=== PATIENT | male | born 1935 | race African-American/Black ===

== ENCOUNTER 2016-09-30 09:16 | Emergency (ER) | payer MEDICARE, OTHER ==
--- NOTE | 2016-09-30 11:10 | ER Document Report ---
ED General - General Chief Complaint: High Blood Pressure Stated Complaint: POSSIBLE HIGH BLOOD PRESSURE Notes: This is a 81-year-old male with history of hypertension, coronary artery disease , PTSD who states that he's felt dizzy for 3 days. He's noted his blood pressure to be very elevated over the past 3 days as well, sometimes as high as 180 systolic. He does note that he took a new medication for his PTSD just prior to the onset of these symptoms. He only took the medication one time because he was not sure if the dizziness was a side effect. He states he is still feeling dizzy even days later. He feels as if he is staggering when he walks. He is concerned that he might be having a stroke. No chest pain or shortness of breath. His pulse is very low at 44 but he states that is normal for him due to his beta blockers. He denies any focal numbness, weakness or tingling although he does state occasionally he experiences tingling in bilateral feet which has been present for a long time. TRAVEL OUTSIDE OF THE [place] IN LAST 30 DAYS: No - Related Data Allergies/Adverse Reactions: Sulfa (Sulfonamide Antibiotics) Allergy (Mild, Verified 09/30/16 09:38) Hives Past Medical History - General Information source: Patient - Social History Smoking Status: Former Smoker Frequency of alcohol use: None Drug Abuse: None Lives with: Spouse/Significant other Family History: CAD Patient has suicidal ideation: No Patient has homicidal ideation: No - Past Medical History Cardiac Medical History: Reports: Hx Atrial Fibrillation, Hx Coronary Artery Disease - stents x 2, Hx Hypercholesterolemia, Hx Hypertension Denies: Hx Heart Attack Pulmonary Medical History: Denies: Hx Asthma, Hx Bronchitis, Hx COPD, Hx Pneumonia, Hx Tuberculosis Neurological Medical History: Denies: Hx Cerebrovascular Accident, Hx Seizures Renal/ Medical History: Reports: Hx Benign Prostatic Hyperplasia GI Medical History: Reports: Hx Gastroesophageal Reflux Disease Musculoskeltal Medical History: Reports Hx Arthritis - back Psychiatric Medical History: Reports: Hx Post Traumatic Stress Disorder Past Surgical History: Reports: Hx Cardiac Catheterization - 2 stents, Hx Coronary Stent - x 2, Hx Herniorrhaphy - BILATERAL INGUINAL, Hx Inguinal Hernia. Denies: Hx Pacemaker - Immunizations Hx Diphtheria, Pertussis, Tetanus Vaccination: No Hx Pneumococcal Vaccination: 07/29/13 Review of Systems - Review of Systems Constitutional: denies: Fever Cardiovascular: Dizziness. denies: Chest pain, Syncope Respiratory: denies: Cough, Short of breath Gastrointestinal: Nausea. denies: Abdominal pain, Vomiting Genitourinary: denies: Frequency Musculoskeletal: denies: Leg swelling Skin: denies: Rash Hematologic/Lymphatic: denies: Enlarged lymph nodes Neurological/Psychological: denies: Numbness, Tingling Physical Exam - Vital signs Vitals: Temp Pulse Resp BP Pulse Ox 97.9 F 49 L 16 155/65 H 99 09/30/16 09:43 09/30/16 09:43 09/30/16 09:43 09/30/16 09:43 09/30/16 09:43 - Notes Notes: GENERAL: Well-appearing, well-nourished and in no acute distress. HEAD: Atraumatic, normocephalic. EYES: Pupils equal round and reactive to light, extraocular movements intact, sclera anicteric, conjunctiva are normal. ENT: nares patent, oropharynx clear without exudates. Moist mucous membranes. NECK: Normal range of motion, supple without lymphadenopathy or JVD. LUNGS: Breath sounds clear to auscultation bilaterally and equal. No wheezes rales or rhonchi. HEART: Regular bradycardia, no murmur ,rubs or gallops. ABDOMEN: Soft, nontender, normoactive bowel sounds. No guarding, no rebound. No masses appreciated. EXTREMITIES: Normal range of motion, no pitting or edema. No clubbing or cyanosis. NEUROLOGICAL: Cranial nerves II through XII grossly intact. Normal speech. Strength 5 out of 5 times all 4 extremities PSYCH: Normal mood, normal affect. SKIN: Warm, Dry, normal turgor, no rashes or lesions noted. Course - Vital Signs Vital signs: Temp Pulse Resp BP Pulse Ox 97.5 F 49 L 18 171/76 H 100 09/30/16 14:56 09/30/16 09:43 09/30/16 16:02 09/30/16 16:02 09/30/16 16:02 - Laboratory Result Diagrams: 09/30/16 10:30 09/30/16 10:30 Laboratory results interpreted by me: 09/30/16 09/30/16 10:30 10:30 WBC 3.9 L RBC 3.89 L Hgb 12.5 L Hct 37.5 L Carbon Dioxide 32 H Glucose 114 H - Diagnostic Test Radiology reviewed: Reports reviewed - MRI normal Discharge - Discharge Clinical Impression: Dizziness HTN (hypertension) Qualifiers: Hypertension type: essential hypertension Qualified Code(s): I10 - Essential ( primary) hypertension Condition: Good Disposition: HOME, SELF-CARE Additional Instructions: follow up with your doctor regarding your elevated blood pressure readings. REturn to ER if you are feeling worse.
[2016-09-30 11:33] LABS: PROTHROMBIN TIME 13.2 SEC (11.4-15.4)
[2016-09-30 11:34] LABS: PARTIAL THROMBOPLASTIN TIME 32.6 SEC (23.5-35.8)
[2016-09-30 11:36] LABS: ALANINE AMINOTRANSFERASE 46 U/L (21-72); ALKALINE PHOSPHATASE 70 U/L (38-126); ANION GAP 10 (5-19); ASPARTATE AMINO TRANSFERASE 34 U/L (17-59); BILIRUBIN,TOTAL 0.7 mg/dL (0.2-1.3); BLOOD UREA NITROGEN 16 mg/dL (7-20); CARBON DIOXIDE 32 mmol/L (22-30); CHLORIDE 101 mmol/L (98-107); CREATININE RESULT 0.98 mg/dL (0.52-1.25); GLUCOSE 114 mg/dL (75-110); POTASSIUM 4.6 mmol/L (3.6-5.0); SODIUM 142.7 mmol/L (137-145); TOTAL PROTEIN 7.5 g/dL (6.3-8.2)
[2016-09-30 11:41] LABS: ABSOLUTE EOSINOPHILS # (AUTO) 0.2 10^3/uL (0.0-0.6); ABSOLUTE MONOCYTES (AUTO) 0.5 10^3/uL (0.1-1.4); ABSOLUTE NEUT (AUTO) 2.2 10^3/uL (1.7-8.2); EOSINOPHILS % (AUTO) 3.8 % (0-6); HEMATOCRIT 37.5 % (37.9-51.0); HEMOGLOBIN 12.5 g/dL (13.5-17.0); LYMPHOCYTES % (AUTO) 26.5 % (13-45); MEAN CORPUSCULAR HEMOGLOBIN 32.2 pg (27.0-33.4); MEAN CORPUSCULAR HGB CONC 33.3 g/dL (32.0-36.0); MEAN CORPUSCULAR VOLUME 97 fl (80-97); MONOCYTES % (AUTO) 12.4 % (3-13); RED BLOOD COUNT 3.89 10^6/uL (4.35-5.55); RED CELL DISTRIBUTION WIDTH 13.5 % (11.5-14.0); SEGMENTED NEUTROPHILS % (AUTO) 56.3 % (42-78); WHITE BLOOD COUNT 3.9 10^3/uL (4.0-10.5)
[2016-09-30 11:48] LABS: CREATINE KINASE MB 0.24 ng/mL (<4.55); TROPONIN I < 0.012 ng/mL
[2016-09-30 12:45] LABS: APPEARANCE,URINE CLEAR; BILIRUBIN,URINE NEGATIVE (NEGATIVE); GLUCOSE, URINE NEGATIVE (NEGATIVE); KETONES,URINE NEGATIVE (NEGATIVE); LEUKOCYTE ESTERASE,URINE NEGATIVE (NEGATIVE); NITRITE,URINE NEGATIVE (NEGATIVE); PROTEIN,URINE NEGATIVE (NEGATIVE); URINE SPECIFIC GRAVITY 1.023; UROBILINOGEN,URINE NEGATIVE mg/dL (<2.0)
--- NOTE | 2016-09-30 13:16 | EKG REPORT ---
SEVERITY:- ABNORMAL ECG - SINUS BRADYCARDIA ABNORMAL T, CONSIDER ISCHEMIA, LATERAL LEADS : Confirmed by: Kareem Watson 30-Sep-2016 13:15:43
[2016-09-30] MEDS ORDERED: HYDRALAZINE HCL INJ/PF 20 MG/1 ML SDV IV ONE (15:26)
[2016-09-30 16:52] VITALS: BP 157/66
== END 2016-09-30 16:50 | disposition home or self-care (01) ==
LOC: ER 09:16
DX: I10 Essential (primary) hypertension (principal); I25.10 Atherosclerotic heart disease of native coronary artery without angina pectoris; I48.91 Unspecified atrial fibrillation; R42 Dizziness and giddiness; R00.1 Bradycardia, unspecified; F43.10 Post-traumatic stress disorder, unspecified; R11.0 Nausea; R20.2 Paresthesia of skin; Z79.899 Other long term (current) drug therapy; Z88.2 Allergy status to sulfonamides; Z87.891 Personal history of nicotine dependence; Z82.49 Family history of ischemic heart disease and other diseases of the circulatory system; Z98.61 Coronary angioplasty status
CPT/HCPCS: 93005; 99284; 96374; 36415; 82553; 85025; 85610; 85730; 80053; 81001; 84484; 70551; 71020; 70450; 93010; J0360

== ENCOUNTER 2016-12-30 13:06 | Emergency (ER) | payer MEDICARE, OTHER ==
--- NOTE | 2016-12-30 13:21 | ER Document Report ---
ED Medical Screen (RME) - General Mode of Arrival: Wheelchair Information source: Patient TRAVEL OUTSIDE OF THE [place] IN LAST 30 DAYS: No - HPI Patient complains to provider of: Dizziness Onset: This morning - 0300 Associated Symptoms: Other - see notes above <CHRIS NELSON - Last Filed: 12/30/16 15:09> <BRIAJEAN CLAUDE MALINAD - Last Filed: 12/30/16 15:26> - General Chief Complaint: Dizziness Stated Complaint: DIZZINESS Notes: 81 year male with history of arthritis (back and neck) presents to the ED complaining of dizziness that started at 0300 this morning. Patient reports that he stood up to use the restroom and almost fell. Patient explains that he is off balance and that the room is spinning. Patient is dizzy while sitting, but it is exacerbated when standing. Patient is also complaining of a sharp pain from the right shoulder that radiates to the upper back and left shoulder. Patient states he takes baby aspirin daily. (CHRIS NELSON) - Related Data Allergies/Adverse Reactions: Sulfa (Sulfonamide Antibiotics) Allergy (Mild, Verified 12/30/16 13:16) Hives Past Medical History - General Information source: Patient - Past Medical History Cardiac Medical History: Reports: Hx Atrial Fibrillation, Hx Coronary Artery Disease - stents x 2, Hx Hypercholesterolemia, Hx Hypertension Denies: Hx Heart Attack Renal/ Medical History: Reports: Hx Benign Prostatic Hyperplasia. Denies: Hx Peritoneal Dialysis GI Medical History: Reports: Hx Gastroesophageal Reflux Disease Musculoskeltal Medical History: Reports Hx Arthritis - back Psychiatric Medical History: Reports: Hx Post Traumatic Stress Disorder Past Surgical History: Reports: Hx Cardiac Catheterization - 2 stents, Hx Coronary Stent - x 2, Hx Herniorrhaphy - BILATERAL INGUINAL, Hx Inguinal Hernia. Denies: Hx Pacemaker - Immunizations Hx Diphtheria, Pertussis, Tetanus Vaccination: No <CHRIS NELSON - Last Filed: 12/30/16 15:09> Review of Systems - Review of Systems Constitutional: No symptoms reported EENT: No symptoms reported Cardiovascular: See HPI, Dizziness Respiratory: No symptoms reported Gastrointestinal: No symptoms reported Genitourinary: No symptoms reported Male Genitourinary: No symptoms reported Musculoskeletal: See HPI, Other - right shoulder pain that radiates to upper back and left shoulder Skin: No symptoms reported Hematologic/Lymphatic: No symptoms reported Neurological/Psychological: No symptoms reported -: Yes All other systems reviewed and negative <CHRIS NELSON - Last Filed: 12/30/16 15:09> Physical Exam - General General appearance: Alert In distress: None - Respiratory Respiratory status: No respiratory distress - Extremities General upper extremity: Normal inspection, Normal ROM General lower extremity: Normal inspection, Normal ROM <CHRIS NELSON - Last Filed: 12/30/16 15:09> <JEAN CLAUDE FRASER - Last Filed: 12/30/16 15:26> - Vital signs Vitals: Temp Pulse Resp BP Pulse Ox 98.1 F 60 18 155/66 H 98 12/30/16 13:12 12/30/16 13:12 12/30/16 13:12 12/30/16 13:12 12/30/16 13:12 Course - Laboratory Result Diagrams: 12/30/16 13:30 12/30/16 13:30 <CHRIS NELSON - Last Filed: 12/30/16 15:09> - Laboratory Result Diagrams: 12/30/16 13:30 12/30/16 13:30 <JEAN CLAUDE FRASER - Last Filed: 12/30/16 15:26> - Re-evaluation Re-evalutation: 12/30/16 15:26 I personally performed the services described in the documentation, reviewed and edited the documentation which was dictated to the scribe in my presence, and it accurately records my words and actions. (JEAN CLAUDE FRASER) - Vital Signs Vital signs: Temp Pulse Resp BP Pulse Ox 98.1 F 50 L 19 151/70 H 97 12/30/16 13:12 12/30/16 14:34 12/30/16 14:31 12/30/16 14:34 12/30/16 14:31 - Laboratory Laboratory results interpreted by me: 12/30/16 12/30/16 13:30 13:30 RBC 3.85 L Hgb 12.4 L Hct 36.4 L Carbon Dioxide 31 H Glucose 162 H Scribe Documentation - Scribe Written by Davie:: Davie Reaves, 12/30/2016 1347 acting as scribe for :: Brai <CHRIS NELSON - Last Filed: 12/30/16 15:09>
[2016-12-30 13:42] LABS: ABSOLUTE EOSINOPHILS # (AUTO) 0.1 10^3/uL (0.0-0.6); ABSOLUTE LYMPHOCYTES (AUTO) 1.3 10^3/uL (0.5-4.7); ABSOLUTE MONOCYTES (AUTO) 0.4 10^3/uL (0.1-1.4); ABSOLUTE NEUT (AUTO) 3.5 10^3/uL (1.7-8.2); HEMOGLOBIN 12.4 g/dL (13.5-17.0); MEAN CORPUSCULAR HEMOGLOBIN 32.3 pg (27.0-33.4); MEAN CORPUSCULAR HGB CONC 34.2 g/dL (32.0-36.0); RED BLOOD COUNT 3.85 10^6/uL (4.35-5.55); WHITE BLOOD COUNT 5.3 10^3/uL (4.0-10.5)
[2016-12-30 13:51] LABS: BASOPHILS % (AUTO) 0.7 % (0-2); EOSINOPHILS % (AUTO) 1.7 % (0-6); HEMATOCRIT 36.4 % (37.9-51.0); HGB HCT DIFFERENCE 0.8; LYMPHOCYTES % (AUTO) 23.7 % (13-45); MEAN CORPUSCULAR VOLUME 95 fl (80-97); MONOCYTES % (AUTO) 7.9 % (3-13); RED CELL DISTRIBUTION WIDTH 12.7 % (11.5-14.0)
[2016-12-30 13:54] LABS: ALANINE AMINOTRANSFERASE 25 U/L (21-72); ALBUMIN 4.2 g/dL (3.5-5.0); ALKALINE PHOSPHATASE 71 U/L (38-126); ANION GAP 10 (5-19); ASPARTATE AMINO TRANSFERASE 24 U/L (17-59); BILIRUBIN,TOTAL 0.6 mg/dL (0.2-1.3); BLOOD UREA NITROGEN 15 mg/dL (7-20); CALCIUM 9.6 mg/dL (8.4-10.2); CARBON DIOXIDE 31 mmol/L (22-30); CHLORIDE 104 mmol/L (98-107); CREATINE KINASE 87 U/L (55-170); CREATININE RESULT 0.96 mg/dL (0.52-1.25); GLUCOSE 162 mg/dL (75-110); SODIUM 144.5 mmol/L (137-145); TOTAL PROTEIN 7.5 g/dL (6.3-8.2)
[2016-12-30] MEDS ORDERED: NORMAL SALINE 1000 ML 1,000 ML IV ONE (15:29)
--- NOTE | 2016-12-30 16:57 | ER Document Report ---
ED General - General Chief Complaint: Dizziness Stated Complaint: DIZZINESS Mode of Arrival: Wheelchair Information source: Patient Notes: 81-year-old male presents with complaints of dizziness only when he stands. Patient notes otherwise he has no complaints at rest he has no complaints. Patient notes when he walks he has no complaints. Symptoms only occur upon standing. Patient notes the room spins. Denies any chest pain shortness breath difficult to breathing diaphoresis or any other concerns. Patient does note pain in his back that has been ongoing for a few days TRAVEL OUTSIDE OF THE [place] IN LAST 30 DAYS: No - HPI Onset: Just prior to arrival Onset/Duration: Sudden Quality of pain: Sharp Severity: Mild Pain Level: 1 Associated symptoms: Body/muscle aches, Weakness Exacerbated by: Standing Relieved by: Denies Similar symptoms previously: No Recently seen / treated by doctor: No - Related Data Allergies/Adverse Reactions: Sulfa (Sulfonamide Antibiotics) Allergy (Mild, Verified 12/30/16 13:16) Hives Past Medical History - General Information source: Patient - Social History Smoking Status: Never Smoker Cigarette use (# per day): No Chew tobacco use (# tins/day): No Smoking Education Provided: No Family History: CAD Patient has suicidal ideation: No Patient has homicidal ideation: No - Past Medical History Cardiac Medical History: Reports: Hx Atrial Fibrillation, Hx Coronary Artery Disease - stents x 2, Hx Hypercholesterolemia, Hx Hypertension Denies: Hx Heart Attack Pulmonary Medical History: Denies: Hx Asthma, Hx Bronchitis, Hx COPD, Hx Pneumonia, Hx Tuberculosis Neurological Medical History: Denies: Hx Cerebrovascular Accident, Hx Seizures Renal/ Medical History: Reports: Hx Benign Prostatic Hyperplasia. Denies: Hx Peritoneal Dialysis GI Medical History: Reports: Hx Gastroesophageal Reflux Disease Musculoskeltal Medical History: Reports Hx Arthritis - back Psychiatric Medical History: Reports: Hx Post Traumatic Stress Disorder Past Surgical History: Reports: Hx Cardiac Catheterization - 2 stents, Hx Coronary Stent - x 2, Hx Herniorrhaphy - BILATERAL INGUINAL, Hx Inguinal Hernia. Denies: Hx Pacemaker - Immunizations Hx Diphtheria, Pertussis, Tetanus Vaccination: No Hx Pneumococcal Vaccination: 07/29/13 Review of Systems - Review of Systems Notes: REVIEW OF SYSTEMS: CONSTITUTIONAL : Denies fever, chills, or sweats. Denies recent illness. EENT: Denies eye, ear, throat, or mouth pain or symptoms. Denies nasal or sinus congestion or discharge. Denies throat, tongue, or mouth swelling or difficulty swallowing. CARDIOVASCULAR: Denies chest pain. Denies palpitations or racing or irregular heart beat. Denies ankle edema. RESPIRATORY: Denies cough, cold, or chest congestion. Denies shortness of breath, difficulty breathing, or wheezing. GASTROINTESTINAL: Denies abdominal pain or distention. Denies nausea, vomiting , or diarrhea. Denies blood in vomitus, stools, or per rectum. Denies black, tarry stools. Denies constipation. GENITOURINARY: Denies difficulty urinating, painful urination, burning, frequency, blood in urine, or discharge. MUSCULOSKELETAL: Admits to back pain SKIN: Denies rash, lesions or sores. HEMATOLOGIC : Denies easy bruising or bleeding. LYMPHATIC: Denies swollen, enlarged glands. NEUROLOGICAL: Admits to dizziness PSYCHIATRIC: Denies anxiety or stress. Denies depression, suicidal ideation, or homicidal ideation. ALL OTHER SYSTEMS REVIEWED AND NEGATIVE. Dictation was performed using [employer] voice recognition software PHYSICAL EXAMINATION: GENERAL: Well-appearing, well-nourished and in no acute distress. HEAD: Atraumatic, normocephalic. EYES: Pupils equal round and reactive to light, extraocular movements intact, sclera anicteric, conjunctiva are normal. ENT: Nares patent, oropharynx clear without exudates. Moist mucous membranes. NECK: Normal range of motion, supple without lymphadenopathy LUNGS: Breath sounds clear to auscultation bilaterally and equal. No wheezes rales or rhonchi. HEART: Regular rate and rhythm without murmurs ABDOMEN: Soft, nontender, nondistended abdomen. No guarding, no rebound. No masses appreciated. Musculoskeletal: Normal range of motion, no pitting or edema. No cyanosis. NEUROLOGICAL: Cranial nerves grossly intact. Normal speech, normal gait. Normal sensory, motor exams PSYCH: Normal mood, normal affect. SKIN: Warm, Dry, normal turgor, no rashes or lesions noted. Physical Exam - Vital signs Vitals: Temp Pulse Resp BP Pulse Ox 98.1 F 60 18 155/66 H 98 12/30/16 13:12 12/30/16 13:12 12/30/16 13:12 12/30/16 13:12 12/30/16 13:12 Course - Re-evaluation Re-evalutation: 12/30/16 19:50 Patient notes he has chronic low heart rate secondary to atenolol use. Denies any dizziness at rest. Denies any fevers or chills. Denies any chest pain. He was emergently sent for CT of his chest given the back pain. In this noted no acute abnormality. Therefore I believe since the patient has the dizziness only when he stands is secondary to orthostatics. Patient is stable for discharge, I did provide him my business card and requests a return immediately if there is any other concerns. Both he and are very happy with this plan 12/30/16 19:52 Patient's orthostatics note no significant abnormality in the emergency department, patient states he feels better and wishes to go home After performing a Medical Screening Examination, I estimate there is LOW risk for INTRACRANIAL HEMORRHAGE, ISCHEMIC CVA, MALIGNANT DYSRHYTHMIA, ACUTE CORONARY SYNDROME, MENINGITIS, PULMONARY EMBOLISM, or SEPSIS thus I consider the discharge disposition reasonable. The patient and I have discussed the diagnosis and risks, and we agree with discharging home with close follow-up with the understanding that symptoms and presentations can change. We also discussed returning to the Emergency Department immediately if new or worsening symptoms occur. We have discussed the symptoms which are most concerning (e.g., changing or worsening pain, weakness, vomiting, fever) that necessitate immediate return. - Vital Signs Vital signs: Temp Pulse Resp BP Pulse Ox 97.9 F 46 L 16 171/61 H 100 12/30/16 17:56 12/30/16 17:56 12/30/16 17:56 12/30/16 17:56 12/30/16 17:56 - Laboratory Result Diagrams: 12/30/16 13:30 12/30/16 13:30 Laboratory results interpreted by me: 12/30/16 12/30/16 13:30 13:30 RBC 3.85 L Hgb 12.4 L Hct 36.4 L Carbon Dioxide 31 H Glucose 162 H - Diagnostic Test Radiology reviewed: Image reviewed, Reports reviewed - EKG Interpretation by Ne EKG shows normal: Sinus rhythm, [place], Intervals, QRS Complexes Discharge - Discharge Clinical Impression: Orthostatic hypotension BPV (benign positional vertigo) Qualifiers: Laterality: unspecified laterality Qualified Code(s): H81.10 - Benign paroxysmal vertigo, unspecified ear Condition: Stable Disposition: HOME, SELF-CARE Instructions: Dizziness ([facility]) Referrals: NEIL THOMAS MD [Primary Care Provider] - Follow up tomorrow
[2016-12-30 17:57] VITALS: BP 171/61
--- NOTE | 2017-01-01 15:42 | EKG REPORT ---
SEVERITY:- ABNORMAL ECG - SINUS BRADYCARDIA NONSPECIFIC T ABNORMALITIES, ANT-LAT LEADS : Confirmed by: Kaya Garcia MD 01-Jan-2017 15:41:55
== END 2016-12-30 17:59 | disposition home or self-care (01) ==
LOC: ER 13:06
DX: H81.10 Benign paroxysmal vertigo, unspecified ear (principal); R42 Dizziness and giddiness; I95.1 Orthostatic hypotension
CPT/HCPCS: 36415; 71010; 71275; 74174; 80053; 82550; 82553; 84484; 85025; 93005; 93010; 99284

== ENCOUNTER 2017-01-19 11:56 | Observation (INO) | payer MEDICARE, OTHER ==
[2017-01-19] MEDS ORDERED: ASPIRIN 81 MG TABLET, CHEWABLE PO ONE (13:06)
--- NOTE | 2017-01-19 13:12 | ER Document Report ---
ED Medical Screen (RME) - General Chief Complaint: Chest Pressure Stated Complaint: CHEST PAIN/NAUSEA Mode of Arrival: Wheelchair Information source: Patient, [facility] Records Notes: 81-year-old male history of 2 previous cardiac stents presents with complaints of chest pressure sensation. Patient notes that he start having this pressure sensation since , initially was a dull achy sensation that would worsen intermittently and now seems to be more constant today. Patient denies any fevers or chills admits to shortness of breath associated with it. Patient took his nitroglycerin from 7 years ago which had minimal improvement. Patient was seen here approximately 20 days ago with dizziness without any chest pain at that time first set of cardiac enzymes were negative. EKG at that time notes no acute abnormality from today I have greeted and performed a rapid initial assessment of this patient. A comprehensive ED assessment and evaluation of the patient, analysis of test results and completion of the medical decision making process will be conducted by additional ED providers. PHYSICAL EXAMINATION: GENERAL: Well-appearing, well-nourished and in no acute distress. HEAD: Atraumatic, normocephalic. EYES: Pupils equal round and reactive to light, extraocular movements intact, sclera anicteric, conjunctiva are normal. ENT: Nares patent, oropharynx clear without exudates. Moist mucous membranes. NECK: Normal range of motion, supple without lymphadenopathy LUNGS: Breath sounds clear to auscultation bilaterally and equal. No wheezes rales or rhonchi. HEART: Regular rate and rhythm without murmurs ABDOMEN: Soft, nontender, nondistended abdomen. No guarding, no rebound. No masses appreciated. Musculoskeletal: Normal range of motion, no pitting or edema. No cyanosis. NEUROLOGICAL: Cranial nerves grossly intact. Normal speech, normal gait. Normal sensory, motor exams PSYCH: Normal mood, normal affect. SKIN: Warm, Dry, normal turgor, no rashes or lesions noted. TRAVEL OUTSIDE OF THE [place] IN LAST 30 DAYS: No - Related Data Allergies/Adverse Reactions: Sulfa (Sulfonamide Antibiotics) Allergy (Mild, Verified 12/30/16 13:16) Hives Past Medical History - Past Medical History Cardiac Medical History: Reports: Hx Atrial Fibrillation, Hx Coronary Artery Disease - stents x 2, Hx Hypercholesterolemia, Hx Hypertension Denies: Hx Heart Attack Pulmonary Medical History: Denies: Hx Asthma, Hx Bronchitis, Hx COPD, Hx Pneumonia, Hx Tuberculosis Neurological Medical History: Denies: Hx Cerebrovascular Accident, Hx Seizures Renal/ Medical History: Reports: Hx Benign Prostatic Hyperplasia. Denies: Hx Peritoneal Dialysis GI Medical History: Reports: Hx Gastroesophageal Reflux Disease Musculoskeltal Medical History: Reports Hx Arthritis - back Psychiatric Medical History: Reports: Hx Post Traumatic Stress Disorder Past Surgical History: Reports: Hx Cardiac Catheterization - 2 stents, Hx Coronary Stent - x 2, Hx Herniorrhaphy - BILATERAL INGUINAL, Hx Inguinal Hernia. Denies: Hx Pacemaker - Immunizations Hx Diphtheria, Pertussis, Tetanus Vaccination: No Physical Exam - Vital signs Vitals: Temp Pulse Resp BP Pulse Ox 97.5 F 61 16 108/55 L 99 01/19/17 12:31 01/19/17 12:31 01/19/17 12:31 01/19/17 12:31 01/19/17 12:31 Course - Re-evaluation Re-evalutation: 01/19/17 13:12 - Vital Signs Vital signs: Temp Pulse Resp BP Pulse Ox 97.5 F 61 16 108/55 L 99 01/19/17 12:31 01/19/17 12:31 01/19/17 12:31 01/19/17 12:31 01/19/17 12:31
[2017-01-19 13:59] LABS: ABSOLUTE EOSINOPHILS # (AUTO) 0.1 10^3/uL (0.0-0.6); ABSOLUTE LYMPHOCYTES (AUTO) 1.3 10^3/uL (0.5-4.7); ABSOLUTE MONOCYTES (AUTO) 0.6 10^3/uL (0.1-1.4); ABSOLUTE NEUT (AUTO) 4.2 10^3/uL (1.7-8.2); BASOPHILS % (AUTO) 0.7 % (0-2); EOSINOPHILS % (AUTO) 1.6 % (0-6); HEMATOCRIT 33.3 % (37.9-51.0); HEMOGLOBIN 11.3 g/dL (13.5-17.0); HGB HCT DIFFERENCE 0.6; LYMPHOCYTES % (AUTO) 21.4 % (13-45); MEAN CORPUSCULAR HEMOGLOBIN 32.3 pg (27.0-33.4); MEAN CORPUSCULAR HGB CONC 33.9 g/dL (32.0-36.0); MEAN CORPUSCULAR VOLUME 95 fl (80-97); MONOCYTES % (AUTO) 9.6 % (3-13); RED CELL DISTRIBUTION WIDTH 13.3 % (11.5-14.0); SEGMENTED NEUTROPHILS % (AUTO) 66.7 % (42-78); WHITE BLOOD COUNT 6.3 10^3/uL (4.0-10.5)
[2017-01-19 14:27] LABS: ALANINE AMINOTRANSFERASE 31 U/L (21-72); ALBUMIN 4.4 g/dL (3.5-5.0); ALKALINE PHOSPHATASE 63 U/L (38-126); ANION GAP 12 (5-19); ASPARTATE AMINO TRANSFERASE 26 U/L (17-59); BILIRUBIN,DIRECT 0.3 mg/dL (0.0-0.4); BILIRUBIN,TOTAL 0.8 mg/dL (0.2-1.3); BLOOD UREA NITROGEN 24 mg/dL (7-20); CALCIUM 9.2 mg/dL (8.4-10.2); CARBON DIOXIDE 30 mmol/L (22-30); CHLORIDE 102 mmol/L (98-107); CREATINE KINASE 90 U/L (55-170); CREATININE RESULT 1.13 mg/dL (0.52-1.25); GLUCOSE 128 mg/dL (75-110); POTASSIUM 4.5 mmol/L (3.6-5.0); SODIUM 144.1 mmol/L (137-145); TOTAL PROTEIN 7.8 g/dL (6.3-8.2)
[2017-01-19 14:38] LABS: CREATINE KINASE MB < 0.22 ng/mL (<4.55); TROPONIN I < 0.012 ng/mL
--- NOTE | 2017-01-19 15:48 | ER Document Report ---
ED Cardiac <JIMENEZ WONG - Last Filed: 01/19/17 16:58> - General Mode of Arrival: Wheelchair Information source: Patient TRAVEL OUTSIDE OF THE [place] IN LAST 30 DAYS: No - HPI Patient complains to provider of: Chest pain, Shortness of breath Quality of pain: Other - see notes above Associated symptoms: Other - see notes above <CHRIS NELSON - Last Filed: 01/19/17 17:03> - General Chief Complaint: Chest Pressure Stated Complaint: CHEST PAIN/NAUSEA Notes: 81 year old male with history of coronary stentsx2, CAD, hypertension, hyperlipidemia, and atrial fibrillation presents to the ED complaining of constant chest pain that started 4 days ago. Patient reports that it feels like there "is a ball under his ribs that is constantly being inflated." Patient reports that the last time he felt a sensation like this was 8 years ago when he was ultimately transferred to [place] for a stent. Patient had a heart catherization performed last year. Patient reports nausea, shortness of breath, and a dry cough, but denies a fever. Patient placed a 10 year old nitro patch yesterday afternoon and reports that the pain is a little better now. (CHRIS NELSON) - Related Data Allergies/Adverse Reactions: Sulfa (Sulfonamide Antibiotics) Allergy (Mild, Verified 12/30/16 13:16) Hives Past Medical History - General Information source: Patient, [facility] Records - Social History Smoking Status: Unknown if Ever Smoked Family History: CAD Patient has suicidal ideation: No Patient has homicidal ideation: No - Past Medical History Cardiac Medical History: Reports: Hx Atrial Fibrillation, Hx Coronary Artery Disease - stents x 2, Hx Hypercholesterolemia, Hx Hypertension Renal/ Medical History: Reports: Hx Benign Prostatic Hyperplasia GI Medical History: Reports: Hx Gastroesophageal Reflux Disease Musculoskeltal Medical History: Reports Hx Arthritis - back Psychiatric Medical History: Reports: Hx Post Traumatic Stress Disorder Past Surgical History: Reports: Hx Cardiac Catheterization - 2 stents, Hx Coronary Stent - x 2, Hx Herniorrhaphy - BILATERAL INGUINAL, Hx Inguinal Hernia - Immunizations Hx Diphtheria, Pertussis, Tetanus Vaccination: No Hx Pneumococcal Vaccination: 07/29/13 <CHRIS NELSON - Last Filed: 01/19/17 17:03> Review of Systems - Review of Systems Constitutional: No symptoms reported. denies: Fever EENT: No symptoms reported Cardiovascular: See HPI, Chest pain Respiratory: See HPI, Cough - dry, Short of breath Gastrointestinal: See HPI, Nausea Genitourinary: No symptoms reported Male Genitourinary: No symptoms reported Musculoskeletal: No symptoms reported Skin: No symptoms reported Hematologic/Lymphatic: No symptoms reported Neurological/Psychological: No symptoms reported -: Yes All other systems reviewed and negative <NELSON,CHRIS - Last Filed: 01/19/17 17:03> Physical Exam <JIMENEZ WONG - Last Filed: 01/19/17 16:58> <CHRIS NELSON - Last Filed: 01/19/17 17:03> - Vital signs Vitals: Temp Pulse Resp BP Pulse Ox 97.5 F 61 16 108/55 L 99 01/19/17 12:31 01/19/17 12:31 01/19/17 12:31 01/19/17 12:31 01/19/17 12:31 - Notes Notes: Physical Exam: GENERAL: VS as per nursing doc. Well-appearing, well-nourished and in no acute distress. HEAD: Atraumatic, normocephalic. EYES: Pupils equal round and reactive to light, extraocular movements intact, sclera anicteric, no conjunctival injection or discharge. ENT: Nares patent, oropharynx clear without exudates. Moist mucous membranes. NECK: Normal range of motion, supple without lymphadenopathy. No JVD. No Carotid Bruits. LUNGS: Breath sounds clear to auscultation bilaterally and equal. Scattered right rales right base HEART: Normal S1S2. Regular rate and rhythm without murmurs. Equal peripheral pulses. ABDOMEN: Soft, non-tender. No pulsatile mass. EXTREMITIES: Normal range of motion. No chest or calf tenderness. Negative Fabian s. No edema. NEUROLOGICAL: Cranial nerves grossly intact. Normal speech. Normal sensory and motor exams. No gross cerebellar abnormalities. PSYCH: Normal mood, normal affect. SKIN: Warm, dry, no cyanosis, no splinter hemorrhages. Cap refill < 2 sec. (JIMENEZ WONG) Course - Laboratory Result Diagrams: 01/19/17 13:30 01/19/17 13:30 - Diagnostic Test Radiology reviewed: Image reviewed - No acute process, Reports reviewed - EKG Interpretation by Hi EKG shows normal: Sinus rhythm Rate: Normal - Heart rate 56, diffuse T-wave inversion in the anterior lateral leads but this is consistent with 12/30/2016. Normal QRS <ISAIASJIMENEZ CEE - Last Filed: 01/19/17 16:58> - Laboratory Result Diagrams: 01/19/17 13:30 01/19/17 13:30 - Consults Dr. Bernardo Time consulted: 16:53 <CHRIS NELSON - Last Filed: 01/19/17 17:03> - Re-evaluation Re-evalutation: 01/19/17 16:[address] Vargas. She accepts the patient for admission. The patient has no chest discomfort at all. As the Nitropatch was 10 years old I was going to change it for some new paste but his symptoms completely went away. (JIMENEZ WONG Junaid) - Vital Signs Vital signs: Temp Pulse Resp BP Pulse Ox 97.5 F 61 16 108/55 L 100 01/19/17 12:31 01/19/17 12:31 01/19/17 12:31 01/19/17 12:31 01/19/17 15:30 - Laboratory Laboratory results interpreted by me: 01/19/17 01/19/17 13:30 13:30 RBC 3.50 L Hgb 11.3 L Hct 33.3 L Plt Count 144 L BUN 24 H Glucose 128 H - Consults Dr. Bernardo Reason for consultation: 01/19/17 16:53 Patient was discussed with Dr. Bernardo and agrees to admit the patient and see him at bedside. (CHRIS NELSON) Discharge - Discharge Unit Admitted: Telemetry <ISAIASJIMENEZ - Last Filed: 01/19/17 16:58> <CHRSI NELSON - Last Filed: 01/19/17 17:03> - Discharge Clinical Impression: Chest pain, Coronary artery disease Condition: Fair Disposition: ADMITTED OBSERVATION Referrals: RICH THOMAS MD [Primary Care Provider] - Follow up as needed Scribe Documentation - Scribe Written by Scribe:: Davie Reaves, 01/19/2017 1604 acting as scribe for :: Isaias <CHRIS NELSON - Last Filed: 01/19/17 17:03>
[2017-01-19] MEDS ORDERED: NITROGLYCERIN 2% OINTMENT 1 GM PACKET TP ONE (16:14)
[2017-01-19] MEDS ORDERED: ONDANSETRON HCL INJ/PF 4 MG/2 ML SDV IV PRN (17:50)
[2017-01-19] MEDS ORDERED: ACETAMINOPHEN 325 MG TABLET PO PRN (17:50)
[2017-01-19] MEDS ORDERED: MORPHINE SULFATE 10 MG/ML INJ IV PRN (18:01)
[2017-01-19] MEDS ORDERED: NITROGLYCERIN 0.4 MG/TAB 25 TAB/BOTTLE SL PRN (18:01)
--- NOTE | 2017-01-19 18:26 | PDOC H&P ---
History of Present Illness Admission Date/PCP: RICH THOMAS MD History of Present Illness: DEAN GARCIA is a 81 year old -Maced[place] male with a past medical history significant for coronary artery disease status post stents 2, hypertension, dyslipidemia, atrial fibrillation, GERD who presents to the service with a week's worth of chest discomfort. The patient states that a few days ago he began having chest discomfort in the middle and left side of his chest. He describes it as an expansion of his chest to the point it feels like something is going to pop. The patient had the Same sensation about 8 years ago when he had stents placed. These stents were placed out in [place]. The patient states that he also had associated shortness of breath and nausea. He describes this pain as a 4 out of 10 at its worse. He states it radiates through to his back. He denies any sweats or palpitations. Try some extra strength Tylenol but this didn't help. Today the pain seemed to be at its worse and he decided to put on an old nitroglycerin patch that he had left over from 10 years ago. This brought his pain down to 1 out of 10. Patient also reports some lightheadedness and dizziness. Of note, the patient does have a history of GERD. However he feels that his GERD is currently under good control. He sleeps in a bed that allows him to keep his head elevated, so it is unknown whether or not he can truly sleep flat. Past Medical History Cardiac Medical History: Reports: Atrial Fibrillation, Coronary Artery Disease - stents x 2, Hyperlipidema, Hypertension Denies: Myocardial Infarction Pulmonary Medical History: Reports: Sleep Apnea Denies: Asthma, Bronchitis, Chronic Obstructive Pulmonary Disease (COPD), Pneumonia, Tuberculosis Neurological Medical History: Denies: Seizures GI Medical History: Reports: Gastroesophageal Reflux Disease Musculoskeltal Medical History: Reports: Arthritis - back Psychiatric Medical History: Reports: Post Traumatic Stress Disorder Hematology: Denies: Anemia Past Surgical History Past Surgical History: Reports: Cardiac Catheterization - 2 stents, Coronary Stent - x 2, Herniorrhaphy - BILATERAL INGUINAL Denies: Pacemaker Social History Information Source: Patient Smoking Status: Former Smoker - Patient quit smoking 40 years ago. Prior to this he smoked for 12 years at 1 pack per day Frequency of Alcohol Use: None - Patient quit alcohol 40 years ago as well Hx Recreational Drug Use: No Drugs: None Hx Prescription Drug Abuse: No Family History Family History: CAD, DM, Hypertension, Malignancy Parental Family History Reviewed: Yes - mom had diabetes Children Family History Reviewed: Yes Sibling(s) Family History Reviewed.: Yes - She had 2 brothers with PTSD from the war. One of prostate cancer. Medication/Allergy Allergies/Adverse Reactions: Sulfa (Sulfonamide Antibiotics) Allergy (Mild, Verified 12/30/16 13:16) Hives Review of Systems Review of Systems: Review of systems is positive for that already listed in the history of present illness in addition to this the patient occasionally has constipation. He is also noticed that he has had decreased abdominal girth without any change in his actual weight. The patient states this is the skinniest he has been since he was a teenager. He also wears glasses and feels that his vision is fading. He has cold intolerance. He denies vomiting fevers, chills, diarrhea, abdominal pain, decreased appetite, hot intolerance, or dysuria. Physical Exam Vital Signs: Temp Pulse Resp BP Pulse Ox 97.5 F 61 16 108/55 L 100 01/19/17 12:31 01/19/17 12:31 01/19/17 12:31 01/19/17 12:31 01/19/17 15:30 Intake & Output 01/18/17 01/19/17 01/20/17 06:59 06:59 06:59 Weight 74.843 kg PHYSICAL EXAM: GENERAL: This is a well-developed well-nourished -[place] male resting in no acute distress. HEENT: Normocephalic atraumatic. trachea is midline. sclera anicteric with mucous membranes HEART: Bradycardic rhythm. bus monitor shows a rate of 50 No murmurs rubs or gallops. LUNGS: Clear to auscultation bilaterally with equal rise and fall of the chest. ABDOMEN: Soft, nontender, nondistended with normoactive bowel sounds EXTREMITIES: No clubbing cyanosis or edema. 2+ peripheral pulses. 5 out of 5 strength in the upper and lower extremities bilaterally NEURO: Awake, alert, oriented x3. Cranial nerves II through XII specifically intact. PSYCH: Normal affect. Results Laboratory Results: 01/19/17 13:30 01/19/17 13:30 01/19/17 01/19/17 13:30 13:30 WBC 6.3 RBC 3.50 L Hgb 11.3 L Hct 33.3 L MCV 95 MCH 32.3 MCHC 33.9 RDW 13.3 Plt Count 144 L Seg Neutrophils % 66.7 Lymphocytes % 21.4 Monocytes % 9.6 Eosinophils % 1.6 Basophils % 0.7 Absolute Neutrophils 4.2 Absolute Lymphocytes 1.3 Absolute Monocytes 0.6 Absolute Eosinophils 0.1 Absolute Basophils 0.0 Sodium 144.1 Potassium 4.5 Chloride 102 Carbon Dioxide 30 Anion Gap 12 BUN 24 H Creatinine 1.13 Est GFR ( Amer) > 60 Est GFR (Non-Af Amer) > 60 Glucose 128 H Calcium 9.2 Total Bilirubin 0.8 AST 26 ALT 31 Alkaline Phosphatase 63 Total Protein 7.8 Albumin 4.4 01/19/17 01/19/17 13:30 13:30 Creatine Kinase 90 CK-MB (CK-2) < 0.22 Troponin I < 0.012 Impressions: Chest X-Ray 01/19/17 13:06 IMPRESSION: NO SIGNIFICANT RADIOGRAPHIC FINDING IN THE CHEST. Assessment & Plan - Diagnosis (1) Chest pain Plan: Patient has chest discomfort. First set of troponins is negative. We'll repeat 2 more times. Although, I expect these to be negative considering he's had this chest pain for the last week. Obtain stress test in the morning. DUNIA has been ordered (2) Coronary artery disease Plan: He is status post stent 2. Continue home medications. (3) GERD (gastroesophageal reflux disease) Qualifiers: Esophagitis presence: without esophagitis Qualified Code(s): K21.9 - Gastro-esophageal reflux disease without esophagitis (4) HTN (hypertension) Qualifiers: Hypertension type: essential hypertension Qualified Code(s): I10 - Essential (primary) hypertension Plan: Blood pressure is 147/70 at the bedside. Continue home meds. He seems to be under reasonable control right now. (5) History of atrial fibrillation Plan: Continue home meds. Patient is not currently in A. fib. (6) Hyperlipidemia Qualifiers: Hyperlipidemia type: unspecified Qualified Code(s): E78.5 - Hyperlipidemia, unspecified Plan: Continue home meds. - Time Time Spent: 50 to 70 Minutes
--- NOTE | 2017-01-19 21:39 | EKG REPORT ---
SEVERITY:- ABNORMAL ECG - SINUS RHYTHM NONSPECIFIC T ABNORMALITIES, ANT-LAT LEADS : Confirmed by: Kareem Watson 19-Jan-2017 21:38:35
[2017-01-20] MEDS ORDERED: ASPIRIN 325 MG TABLET, ENT COATED PO SCH (10:00)
[2017-01-20] MEDS ORDERED: AMINOPHYLLINE INJ/PF 250 MG/10 ML SDV IV ONE (14:03)
[2017-01-20] MEDS ORDERED: REGADENOSON INJ 0.4 MG/5 ML DISP.SYRIN IV ONE (14:03)
--- NOTE | 2017-01-20 15:43 | PDOC DISCHARGE SUMMARY ---
General - Admit/Disc Date/PCP Admission Date/Primary Care Provider: 01/19/17 17:50 RICH THOMAS MD Discharge Date: 01/20/17 - Discharge Diagnosis (1) CAD (coronary artery disease) Is this a current diagnosis for this admission?: Yes (2) Chest pain Is this a current diagnosis for this admission?: Yes (3) HTN (hypertension) Is this a current diagnosis for this admission?: Yes (4) History of atrial fibrillation Is this a current diagnosis for this admission?: Yes (5) Hyperlipidemia Is this a current diagnosis for this admission?: Yes - Additional Information Resuscitation Status: Full Code Discharge Diet: Cardiac Discharge Activity: Activity As Tolerated Home Medications: Aspirin [Aspirin EC] 81 mg PO DAILY 01/19/17 Atenolol [Tenormin] 25 mg PO DAILY 01/19/17 Atorvastatin Calcium [Lipitor 40 mg Tablet] 40 mg PO QPM 01/19/17 Dexlansoprazole [Dexilant 30 mg Capsule] 30 mg PO DAILY 01/19/17 Doxazosin Mesylate [Cardura 4 mg Tablet] 4 mg PO DAILY 01/19/17 Escitalopram Oxalate [Lexapro 10 mg Tablet] 10 mg PO DAILY 01/19/17 Multivitamin [Multivitamins] 1 cap PO DAILY 01/19/17 Ranitidine HCl [Zantac] 150 mg PO DAILY 01/19/17 Telmisartan [Micardis 80 mg Tablet] 80 mg PO DAILY 01/19/17 History of Present Illness Patient complains of: Chest pain History of Present Illness: DEAN GARCIA is a 81 year old male male with a past medical history significant for coronary artery disease status post stents 2, hypertension, dyslipidemia, atrial fibrillation, GERD who presents to the service with a week's worth of chest discomfort. The patient states that a few days ago he began having chest discomfort in the middle and left side of his chest. He describes it as an expansion of his chest to the point it feels like something is going to pop. The patient had the Same sensation about 8 years ago when he had stents placed. These stents were placed out in [place]. The patient states that he also had associated shortness of breath and nausea. He describes this pain as a 4 out of 10 at its worse. He states it radiates through to his back. He denies any sweats or palpitations. Try some extra strength Tylenol but this didn't help. Today the pain seemed to be at its worse and he decided to put on an old nitroglycerin patch that he had left over from 10 years ago. This brought his pain down to 1 out of 10. Patient also reports some lightheadedness and dizziness. Of note, the patient does have a history of GERD. However he feels that his GERD is currently under good control. He sleeps in a bed that allows him to keep his head elevated, so it is unknown whether or not he can truly sleep flat. Hospital Course Hospital Course: Patient was monitored overnight he did not have any cardiac arrhythmia He remained in the normal sinus rhythm his cardiac enzymes were negative with troponins less than 0.012 A Cardiolite stress test was performed on the discharge and it was negative for ischemia Patient was discharged on his prior medication regimen to be followed by his primary care physician and cardiology Physical Exam Vital Signs: Temp Pulse Resp BP Pulse Ox 97.3 F 55 L 17 171/66 H 100 01/20/17 11:40 01/20/17 14:00 01/20/17 11:40 01/20/17 11:40 01/20/17 11:40 Intake & Output 01/19/17 01/20/17 01/21/17 00:59 00:59 00:59 Intake Total 260 605 Balance 260 605 Weight 74.843 kg 74.843 kg General appearance: PRESENT: no acute distress, well-developed, well-nourished Head exam: PRESENT: atraumatic, normocephalic Eye exam: PRESENT: conjunctiva pink, EOMI, PERRLA. ABSENT: scleral icterus Ear exam: PRESENT: normal external ear exam Mouth exam: PRESENT: moist, tongue midline Neck exam: ABSENT: carotid bruit, JVD, lymphadenopathy, thyromegaly Respiratory exam: PRESENT: clear to auscultation saul. ABSENT: rales, rhonchi, wheezes Cardiovascular exam: PRESENT: RRR. ABSENT: diastolic murmur, rubs, systolic murmur Pulses: PRESENT: normal dorsalis pedis pul Vascular exam: PRESENT: normal capillary refill GI/Abdominal exam: PRESENT: normal bowel sounds, soft. ABSENT: distended, guarding, mass, organolmegaly, rebound, tenderness Rectal exam: PRESENT: deferred Extremities exam: PRESENT: full ROM. ABSENT: calf tenderness, clubbing, pedal edema Neurological exam: PRESENT: alert, awake, oriented to person, oriented to place , oriented to time, oriented to situation, CN II-XII grossly intact. ABSENT: motor sensory deficit Psychiatric exam: PRESENT: appropriate affect, normal mood. ABSENT: homicidal ideation, suicidal ideation Skin exam: PRESENT: dry, intact, warm. ABSENT: cyanosis, rash Results Laboratory Results: 01/19/17 01/20/17 01/20/17 18:21 00:45 06:15 Troponin I < 0.012 < 0.012 < 0.012 Labs- Entire Visit 01/19/17 01/19/17 01/19/17 13:30 13:30 13:30 WBC 6.3 RBC 3.50 L Hgb 11.3 L Hct 33.3 L MCV 95 MCH 32.3 MCHC 33.9 RDW 13.3 Plt Count 144 L Seg Neutrophils % 66.7 Lymphocytes % 21.4 Monocytes % 9.6 Eosinophils % 1.6 Basophils % 0.7 Absolute Neutrophils 4.2 Absolute Lymphocytes 1.3 Absolute Monocytes 0.6 Absolute Eosinophils 0.1 Absolute Basophils 0.0 Sodium 144.1 Potassium 4.5 Chloride 102 Carbon Dioxide 30 Anion Gap 12 BUN 24 H Creatinine 1.13 Est GFR ( Amer) > 60 Est GFR (Non-Af Amer) > 60 Glucose 128 H Calcium 9.2 Total Bilirubin 0.8 Direct Bilirubin 0.3 Indirect Bilirubin Not Reportable Neonat Total Bilirubin Not Reportable AST 26 ALT 31 Alkaline Phosphatase 63 Creatine Kinase 90 CK-MB (CK-2) < 0.22 Troponin I < 0.012 Total Protein 7.8 Albumin 4.4 01/19/17 01/20/17 01/20/17 18:21 00:45 06:15 WBC RBC Hgb Hct MCV MCH MCHC RDW Plt Count Seg Neutrophils % Lymphocytes % Monocytes % Eosinophils % Basophils % Absolute Neutrophils Absolute Lymphocytes Absolute Monocytes Absolute Eosinophils Absolute Basophils Sodium Potassium Chloride Carbon Dioxide Anion Gap BUN Creatinine Est GFR ( Amer) Est GFR (Non-Af Amer) Glucose Calcium Total Bilirubin Direct Bilirubin Indirect Bilirubin Neonat Total Bilirubin AST ALT Alkaline Phosphatase Creatine Kinase CK-MB (CK-2) Troponin I < 0.012 < 0.012 < 0.012 Total Protein Albumin EKG Comments: SINUS RHYTHM [T1AL] . NONSPECIFIC T ABNORMALITIES, ANT-LAT LEADS Impressions: Chest X-Ray 01/19/17 13:06 IMPRESSION: NO SIGNIFICANT RADIOGRAPHIC FINDING IN THE CHEST. Plan Discharge Plan: Home on prior medical regimen Time Spent: Less than 30 Minutes
[2017-01-20 16:19] VITALS: BP 163/67
--- NOTE | 2017-01-20 17:35 | DRAGON STRESS TEST REPORT ---
INTRAVENOUS LEXISCAN CARDIOLITE STRESS TEST USING SINGLE PHOTON EMMISION COMPUTERIZED TOMOGRAPHIC. DATE OF PROCEDURE: January 20, 2017 INDICATION : Chest pain CARDIAC RISK FACTORS: Known CAD, diabetes, dyslipidemia RESTING EKG: Sinus rhythm, nonspecific T-wave inversion consistent with LVH versus ischemia. STRESS EKG: No significant changes noted with LexiScan bolus REASON FOR TERMINATION: Protocol. PROCEDURE REPORT: Baseline heart rate 51 beats per minute with blood pressure of 143/77. Patient had no significant complaints. Heart rate at 2 minutes post bolus 95 with a blood pressure of 137/67. 3 minutes post bolus heart rate 90 with blood pressure of 145/77. No significant EKG changes were noted. Patient had no significant complaints during the procedure or postprocedure. Patient injected with Aminophyllin 75 mg at 3 minutes or later after Lexiscan bolus. CONCLUSIONS: Normal EKG and hemodynamic response to IV LexiScan. NUCLEAR DATA: At rest the patient was given 11.69 millicuries of technetium 99 sestamibi injected intravenously. As per protocol rest gated SPECT images were obtained. Subsequently the patient was given intravenous LexiScan at a dose of 0.4 mg in 5 mL intravenously, followed by flush with normal saline. Subsequently the stress dose of 36.0 millicuries of technetium 99 sestamibi was injected intravenously. As per protocol stress gated images were obtained. NUCLEAR INTERPRETATION: Both raw and processed data were used for interpretation. Visual, qualitative, computer-generated quantitative data was used. There was good myocardial uptake of technetium compound. Motion artifact and soft tissue attenuations were noted. Increased visceral uptake was noted. No definitive areas of transient perfusion defect noted. No definitive areas of fixed perfusion defect or scars noted except for mild fixed defect in the basal and midinferior wall consistent with mild scar. EKG gated imaging showed LV EF at 39 %, rest and stress gated EF similar visually. T. I D. ratio was 1.14. Lung heart ratio noted to be within normal limits 0.30. No significant extracardiac and abnormal radiotracer activities were noted. RV free wall uptake was noted to be borderline increased. IMPRESSION: Also refer to comments under nuclear interpretation. Also test results needs to be interpreted in the context of pretest probability. 1. There is no definitive scintigraphic evidence of LexiScan induced myocardial ischemia. 2. Mild fixed defect noted in the basal and mid inferior wall consistent with mild myocardial infarction/scar. 3. EKG gated imaging shows left ejection fraction of approximately 39 %. 4. Clinical correlation requested as occasionally single vessel disease or balanced ischemia could be missed. In approximately 10% of the cases Lexiscan may not cause adequate vasodilatory stress. RECOMMENDATIONS: Aggressive risk factor modification, medical therapy. Clinical correlation with echocardiogram derived ejection fraction. Inability to exercise by itself can lead to increased cardiovascular event risks. Consider cardiology consultation and or follow-up if clinically indicated. I AM AVAILABLE FOR CARDIOLOGY CONSULTATION AND FOLLOWUP IF REQUESTED BY PMD Kareem Watson M.D., [employer], Board certified in cardiovascular diseases, Nuclear cardiology, Echocardiography Cardiac CT and cardiac MRI Ph. [phone] GHULAM
== END 2017-01-20 17:15 | disposition home or self-care (01) ==
LOC: ER 11:56 → EH 17:50 → UNDOADMOB 18:06 → 5 21:27
PROVIDERS: ADMIT Hospitalist; ATTEND Hospitalist
DX: I25.10 Atherosclerotic heart disease of native coronary artery without angina pectoris (principal); R07.89 Other chest pain; I10 Essential (primary) hypertension; E78.5 Hyperlipidemia, unspecified; I48.91 Unspecified atrial fibrillation; R05 Cough; K21.9 Gastro-esophageal reflux disease without esophagitis; Z95.5 Presence of coronary angioplasty implant and graft; Z87.891 Personal history of nicotine dependence; Z82.49 Family history of ischemic heart disease and other diseases of the circulatory system; Z80.9 Family history of malignant neoplasm, unspecified
CPT/HCPCS: 93005; 99285; 36415 ×2; 82553; 82550; 85025; 80053; 84484 ×2; 93017; 71010; 78452; 93010; G0378 ×3; A9500; J2785; A9270 ×2; J3490; J0280; Q9969

== ENCOUNTER → 2017-02-04 | Outpatient (CLI) | payer MEDICARE, OTHER | LOC: SP 16:23 | PROVIDERS: ATTEND Internal Medicine Pulmonary Disease | DX: R79.89 Other specified abnormal findings of blood chemistry (principal) | CPT/HCPCS: 93970; 71020; 78582; A9540; A9567; Q9969 ==

== ENCOUNTER 2017-04-30 09:17 | Day surgery (SDC) | payer MEDICARE, OTHER ==
[2017-04-30] MEDS ORDERED: ONDANSETRON HCL INJ/PF 4 MG/2 ML SDV ONE (09:56)
[2017-04-30] MEDS ORDERED: GLYCOPYRROLATE INJ 0.4 MG/2 ML VIAL ONE (09:56)
[2017-04-30] MEDS ORDERED: MIDAZOLAM 2 MG/2 ML INJ ONE ×2 (09:56)
[2017-04-30] MEDS ORDERED: NALOXONE HCL INJ/PF 0.4 MG/1 ML SDV ONE (09:56)
[2017-04-30] MEDS ORDERED: FENTANYL CITRATE INJ/PF 100 MCG/2 ML AMPUL ONE (09:57)
[2017-04-30] MEDS ORDERED: FLUMAZENIL INJ 0.5 MG/5 ML VIAL IV ONE (09:57)
[2017-04-30] MEDS ORDERED: EPINEPHRINE INJ 1 MG/10 ML DISP.SYRIN ONE (09:57)
[2017-04-30 12:16] VITALS: BP 149/69
[2017-04-30 12:17] LABS: ABSOLUTE EOSINOPHILS # (AUTO) 0.1 10^3/uL (0.0-0.6); ABSOLUTE LYMPHOCYTES (AUTO) 1.3 10^3/uL (0.5-4.7); ABSOLUTE MONOCYTES (AUTO) 0.4 10^3/uL (0.1-1.4); ABSOLUTE NEUT (AUTO) 2.1 10^3/uL (1.7-8.2); EOSINOPHILS % (AUTO) 3.4 % (0-6); HEMATOCRIT 35.9 % (37.9-51.0); HEMOGLOBIN 12.2 g/dL (13.5-17.0); HGB HCT DIFFERENCE 0.7; MEAN CORPUSCULAR HEMOGLOBIN 33.2 pg (27.0-33.4); MEAN CORPUSCULAR VOLUME 98 fl (80-97); MONOCYTES % (AUTO) 10.3 % (3-13); RED BLOOD COUNT 3.69 10^6/uL (4.35-5.55); RED CELL DISTRIBUTION WIDTH 13.4 % (11.5-14.0); SEGMENTED NEUTROPHILS % (AUTO) 53.3 % (42-78); WHITE BLOOD COUNT 3.9 10^3/uL (4.0-10.5)
[2017-04-30 13:18] LABS: CARCINOEMBRYONIC ANTIGEN 1.8 ng/mL (<3.0)
--- NOTE | 2017-04-30 15:29 | OPERATIVE REPORT E ---
Operative Report NAME: DEAN GARCIA : 1935 AGE: 81Y DATE OF SURGERY: 04/30/2017 ROOM: PREOPERATIVE DIAGNOSIS: This 81-year-old male presented with a chief complaint of reflux and hoarseness. PROCEDURE: Esophagoscopy, gastroscopy, duodenoscopy. SURGEON: SANTIAGO BRADLEY M.D. ANESTHESIA: Versed 2 mg and Fentanyl 25 mcg. TISSUE REMOVED OR ALTERED: None. PROCEDURE: After adequate sedation the baby scope passed under guided vision, no difficulties. Esophagoscopy: Junction at 40, mild esophagitis, no stricture, no ulcers, no malignancy. Gastroscopy: Mild gastritis. Duodenoscopy: Mild duodenitis. The ampulla of Vater was polypoid, question a lipoma, and enlarged ampulla of Vater with no obstruction, no sign of malignancy. PLAN: We will obtain CEA and CA19-9. Patient's larynx shows no growth, no evidence of malignancy. CONCLUSIONS: 1. Mild esophagitis with mild reflux. 2. Mild gastritis. 3. Prominent ampulla of Vater, question a lipoma, question polyp, awaiting lab studies. The patient tolerated the procedure well and was discharged to his room in stable condition. DICTATING PHYSICIAN: SANTIAGO BRADLEY M.D. [id number] Y#: [id number] ID: [id number] JOB#: [id number] ACCT: [id number] cc:SANTIAGO BRADLEY M.D. >
--- NOTE | 2017-04-30 15:30 | DISCHARGE SUMMARY E ---
Discharge Summary NAME: DEAN GARCIA : 1935 AGE: 81Y ADMITTED: 04/30/2017 DISCHARGED: 04/30/2017 HISTORY: The patient is 81, presented with hoarseness and reflux. Upper endoscopy today shows no evidence of malignancy, no evidence of cancer. Patient did have sessile polyp in his cecum with history of GI bleed, was scoped and cauterized by our surgical hospitalist. DISCHARGE PLAN: Soft diet. Awaiting lab. Patient to see us in the office in the next few days. DICTATING PHYSICIAN: SANTIAGO BRADLEY M.D. [id number] PHY#: [id number] ID: [id number] JOB#: [id number] ACCT: [id number] cc:SANTIAGO BRADLEY M.D. >
--- NOTE | 2017-05-04 13:54 | HISTORY AND PHYSICAL E ---
History and Physical NAME: DEAN GARCIA : 1935 AGE: 81Y ADMITTED: 04/30/2017 ROOM: CHIEF COMPLAINT: Reflux, hoarseness. PLAN: Upper scope. HISTORY: Patient did have CT scan 10/08/2015; it shows no abnormality. CT scan soft tissue and neck. The patient did have barium swallow, 10/08. Normal double contrast barium swallow. The patient did have the following: The patient did have total bone scan. His bone scan, compared with available x-rays, shows the following: Area of activity consistent with chronic degenerative joint disease. The patient was seen 2015. The patient did have normal GI bleeding studies. At this time, the patient for upper scope. The patient did have colonoscopy in the year 2014, biopsy showed no abnormalities, diverticulosis. Patient did have colonoscopy in 2014, showing the following: Patient was seen regarding a GI bleed. Rectal bleeding, history of polyps in his cecum. Today's colonoscopy shows no bleeding. He did have diverticulosis. did colonoscopy on him on 2014 that showed sessile polyp in the cecum; this was cauterized and it was the source of the bleeding. Upper scope done in 2009, showed esophagitis, gastritis, duodenitis. There was some increased spasticity at the GE junction. Again, upper scope done 2009, showed esophagitis, some spasticity at the GE junction. The patient did have mild gastritis, benign-looking gastric polyp. At this time, the patient presented regarding upper endoscopy. The patient did have CT abdomen and pelvis, showed no abnormalities. MEDICATIONS: He is on: 1. Plavix. 2. Atenolol. 3. Micardis. PHYSICAL EXAMINATION: GENERAL: On exam, pleasant, alert, oriented, in no acute distress. VITAL SIGNS: Blood pressure 120/80, pulse 80, respirations 18, temp is 98. HEAD, EYES, EARS, NOSE, THROAT: Normal. ABDOMEN: Soft. NEUROLOGIC: Exam negative. CONCLUSION: 1. Gastroesophageal reflux. 2. Hoarseness. PLAN: Upper scope, scheduled for 04/30. DICTATING PHYSICIAN: SANTIAGO BRADLEY M.D. [id number] PHY#: [id number] ID: [id number] JOB#: [id number] ACCT: [id number] cc:SANTIAGO BRADLEY M.D. >
== END 2017-04-30 12:19 | disposition home or self-care (01) ==
LOC: END 09:17
PROVIDERS: ATTEND Specialist
PROC: 0DJ08ZZ Inspection of Upper Intestinal Tract, Via Natural or Artificial Opening Endoscopic (ICD-10-PCS; principal; 2017-04-30 10:00)
DX: K21.0 Gastro-esophageal reflux disease with esophagitis (principal); K29.50 Unspecified chronic gastritis without bleeding; R97.8 Other abnormal tumor markers; R97.0 Elevated carcinoembryonic antigen [CEA]; Z12.5 Encounter for screening for malignant neoplasm of prostate; Z79.02 Long term (current) use of antithrombotics/antiplatelets; Z79.899 Other long term (current) drug therapy
CPT/HCPCS: 43235; 36415; 86301; 82962; 82378; 85025; G0103; J2250; J3010; J2405; J0171; J2310; J3490

== ENCOUNTER → 2017-05-14 | Outpatient (CLI) | payer MEDICARE, OTHER ==
--- NOTE | 2017-05-14 13:57 | EKG REPORT ---
SEVERITY:- OTHERWISE NORMAL ECG - SINUS BRADYCARDIA : Confirmed by: Isac Ring MD 14-May-2017 13:57:03
[2017-05-15 08:12] LABS: PROSTATE SPECIFIC ANTIGEN 4.3 ng/mL (0.0-4.0); PSA % FREE 9.3 % (.); PSA FREE 0.4 ng/mL
== END ==
LOC: OD 09:55
PROVIDERS: ATTEND Urology
DX: N40.1 Benign prostatic hyperplasia with lower urinary tract symptoms (principal); I10 Essential (primary) hypertension
CPT/HCPCS: 36415; 84154; 93005; 93010

== ENCOUNTER → 2017-07-03 | Outpatient (CLI) | payer MEDICARE, OTHER ==
[2017-07-04 14:49] LABS: PSA % FREE 7.5 % (.); PSA FREE 0.45 ng/mL
== END ==
LOC: OD 13:15
PROVIDERS: ATTEND Urology
DX: N40.1 Benign prostatic hyperplasia with lower urinary tract symptoms (principal)
CPT/HCPCS: 36415; 84154

== ENCOUNTER 2017-09-23 10:34 | Emergency (ER) | payer MEDICARE, OTHER ==
[2017-09-23 10:40] VITALS: BP 154/70
--- NOTE | 2017-09-23 10:57 | ER Document Report ---
ED General - General Chief Complaint: Wrist Pain Stated Complaint: WRIST PAIN Time Seen by Provider: 09/23/17 10:51 Notes: 81-year-old male here with complaints of right hand pain ongoing for the past 3 months as well as swelling ongoing for the past 3 weeks. He has taken Tylenol for the pain. He does not particularly notice worsening with movement. He notices some improvement with Tylenol usage. He denies any fevers chills numbness tingling weakness. Has not yet seen his doctor for this. Denies trauma or direct impact to the area. TRAVEL OUTSIDE OF THE [place] IN LAST 30 DAYS: No - Related Data Allergies/Adverse Reactions: Sulfa (Sulfonamide Antibiotics) Allergy (Mild, Verified 04/27/17 15:34) Hives Past Medical History - Social History Smoking Status: Smoker,Current Status Unk Family History: CAD, DM, Hypertension, Malignancy - Past Medical History Cardiac Medical History: Reports: Hx Atrial Fibrillation, Hx Coronary Artery Disease - STENTS x 2- 7 YR AGO, Hx Hypercholesterolemia, Hx Hypertension - ON MEDS Denies: Hx Heart Attack Pulmonary Medical History: Reports: Hx Sleep Apnea Denies: Hx Asthma, Hx Bronchitis, Hx COPD, Hx Pneumonia, Hx Tuberculosis Neurological Medical History: Denies: Hx Cerebrovascular Accident, Hx Seizures Renal/ Medical History: Reports: Hx Benign Prostatic Hyperplasia. Denies: Hx Peritoneal Dialysis GI Medical History: Reports: Hx Gastroesophageal Reflux Disease Musculoskeltal Medical History: Reports Hx Arthritis - BACK, KNEES, NECK, WRISTS Psychiatric Medical History: Reports: Hx Post Traumatic Stress Disorder Past Surgical History: Reports: Hx Cardiac Catheterization - 2 stents, Hx Coronary Stent - x 2, Hx Herniorrhaphy - BILATERAL INGUINAL, Hx Inguinal Hernia. Denies: Hx Pacemaker - Immunizations Hx Diphtheria, Pertussis, Tetanus Vaccination: No Hx Pneumococcal Vaccination: 07/29/13 Review of Systems - Review of Systems Notes: See history of present illness for pertinent positive review of systems; otherwise all review of systems have been reviewed and are negative Physical Exam - Vital signs Vitals: Temp Pulse Resp BP Pulse Ox 97.7 F 47 L 16 154/70 H 100 09/23/17 10:39 09/23/17 10:39 09/23/17 10:39 09/23/17 10:39 09/23/17 10:39 - Notes Notes: PHYSICAL EXAMINATION: GENERAL: Well-appearing and in no acute distress. HEAD: Atraumatic, normocephalic. EYES: Pupils equal round and reactive to light, extraocular movements intact, sclera anicteric, conjunctiva are normal. NECK: Normal range of motion, supple without lymphadenopathy LUNGS: CTAB and equal. No wheezes rales or rhonchi. HEART: Regular rate and rhythm without murmurs EXTREMITIES: Normal range of motion. No cyanosis. There is some mild dorsal surface swelling overlying the area of the right first dorsal metacarpal without erythema induration fluctuance drainage or tenderness to palpation. Neurovascular intact distally. NEUROLOGICAL: Cranial nerves grossly intact. Normal sensory/motor exams. PSYCH: Normal mood, normal affect. SKIN: Warm, Dry, normal turgor, no rashes or lesions noted Course - Re-evaluation Re-evalutation: 09/23/17 11:01 MEDICAL DECISION MAKING: Concern for tendinitis versus strain versus fracture Very low clinical suspicion for fracture given the history Do not feel that x-ray is needed at this time Will place in a Velcro splint and instructed on the RICE method Instructed follow-up PCP and/or orthopedics next day or few Patient understands and agrees to the plan of care - Vital Signs Vital signs: Temp Pulse Resp BP Pulse Ox 97.7 F 47 L 16 154/70 H 100 09/23/17 10:39 09/23/17 10:39 09/23/17 10:39 09/23/17 10:39 09/23/17 10:39 Discharge - Discharge Clinical Impression: Chronic pain of right wrist Condition: Good Disposition: HOME, SELF-CARE Additional Instructions: Use the prescribed medication as needed for your symptoms of pain. You were seen in the emergency department at [facility]. If you were given any sedating medications, be sure not to operate heavy machinery (example - driving) and be sure you are not too sedated to walk appropriately. Please followup with your primary physician and/or Orthopedic Surgery in the next few days for further management/evaluation. Please return to the emergency department for worsening of symptoms or any symptom that you deem to be concerning or life-threatening. Thank you for allowing us to be part of your care. Prescriptions: Meloxicam [Mobic] 7.5 mg PO DAILYP PRN #10 tablet PRN Reason: Referrals: WALTER CHAVIRA MD [ACTIVE STAFF] - Follow up in 3-5 days
== END 2017-09-23 11:12 | disposition home or self-care (01) ==
LOC: ER 10:34
DX: G89.29 Other chronic pain (principal); M25.531 Pain in right wrist; F17.200 Nicotine dependence, unspecified, uncomplicated; I48.91 Unspecified atrial fibrillation; I25.10 Atherosclerotic heart disease of native coronary artery without angina pectoris; E78.00 Pure hypercholesterolemia, unspecified; I10 Essential (primary) hypertension; Z88.2 Allergy status to sulfonamides
CPT/HCPCS: 99283; L3908

== ENCOUNTER → 2017-11-26 | Outpatient (CLI) | payer MEDICARE, OTHER ==
[2017-11-26 12:27] LABS: ABSOLUTE EOSINOPHILS # (AUTO) 0.1 10^3/uL (0.0-0.6); ABSOLUTE LYMPHOCYTES (AUTO) 1.4 10^3/uL (0.5-4.7); ABSOLUTE MONOCYTES (AUTO) 0.5 10^3/uL (0.1-1.4); ABSOLUTE NEUT (AUTO) 2.4 10^3/uL (1.7-8.2); EOSINOPHILS % (AUTO) 3.4 % (0-6); HEMATOCRIT 36.4 % (37.9-51.0); HEMOGLOBIN 12.3 g/dL (13.5-17.0); LYMPHOCYTES % (AUTO) 30.8 % (13-45); MEAN CORPUSCULAR HEMOGLOBIN 32.3 pg (27.0-33.4); MEAN CORPUSCULAR HGB CONC 33.8 g/dL (32.0-36.0); MEAN CORPUSCULAR VOLUME 95 fl (80-97); MONOCYTES % (AUTO) 11.5 % (3-13); PLATELET COUNT 169 10^3/uL (150-450); RED BLOOD COUNT 3.82 10^6/uL (4.35-5.55); RED CELL DISTRIBUTION WIDTH 13.3 % (11.5-14.0); SEGMENTED NEUTROPHILS % (AUTO) 53.3 % (42-78); TOTAL CELLS COUNTED % (AUTO) 100 %; WHITE BLOOD COUNT 4.4 10^3/uL (4.0-10.5)
[2017-11-26 12:38] LABS: ALANINE AMINOTRANSFERASE 29 U/L (21-72); ALBUMIN 4.2 g/dL (3.5-5.0); ALKALINE PHOSPHATASE 64 U/L (38-126); ASPARTATE AMINO TRANSFERASE 25 U/L (17-59); BILIRUBIN,DIRECT 0.4 mg/dL (0.0-0.4); BILIRUBIN,TOTAL 0.6 mg/dL (0.2-1.3); BLOOD UREA NITROGEN 16 mg/dL (7-20); TOTAL PROTEIN 7.5 g/dL (6.3-8.2)
== END ==
LOC: OD 11:01
PROVIDERS: ATTEND Radiology Radiation Oncology
DX: C61 Malignant neoplasm of prostate (principal); Z79.899 Other long term (current) drug therapy
CPT/HCPCS: 36415; 80076; 82565; 84153; 84520; 85025

== ENCOUNTER 2017-12-10 09:11 | Inpatient (IN) | payer MEDICARE, OTHER ==
[2017-12-10] MEDS ORDERED: ASPIRIN 81 MG TABLET, CHEWABLE PO ONE (09:25)
[2017-12-10] MEDS ORDERED: NITROGLYCERIN 0.4 MG/TAB 25 TAB/BOTTLE SL PRN (09:29)
--- NOTE | 2017-12-10 09:29 | ER Document Report ---
ED Medical Screen (RME) - General Chief Complaint: Chest Pain Stated Complaint: CHEST PAIN Time Seen by Provider: 12/10/17 09:24 Mode of Arrival: Ambulatory Information source: Patient Notes: 82 yr old male hx 2 previous stents, htn, hyperlipidemia presents with " elephant sitting on chest" , started yesterday worsened today went ot the left neck Patient is on baby aspirin daily has not taken at the I have greeted and performed a rapid initial assessment of this patient. A comprehensive ED assessment and evaluation of the patient, analysis of test results and completion of the medical decision making process will be conducted by additional ED providers. PHYSICAL EXAMINATION: GENERAL: Well-appearing, well-nourished and in no acute distress. HEAD: Atraumatic, normocephalic. EYES: Pupils equal round extraocular movements intact, conjunctiva are normal. ENT: Nares patent NECK: Normal range of motion LUNGS: No respiratory distress Musculoskeletal: Normal range of motion NEUROLOGICAL: Normal speech, normal gait. PSYCH: Normal mood, normal affect. SKIN: Warm, Dry, normal turgor, no rashes or lesions noted. TRAVEL OUTSIDE OF THE [place] IN LAST 30 DAYS: No - Related Data Allergies/Adverse Reactions: Sulfa (Sulfonamide Antibiotics) Allergy (Mild, Verified 04/27/17 15:34) Hives Past Medical History - Past Medical History Cardiac Medical History: Reports: Hx Atrial Fibrillation, Hx Coronary Artery Disease - STENTS x 2- 7 YR AGO, Hx Hypercholesterolemia, Hx Hypertension - ON MEDS Denies: Hx Heart Attack Pulmonary Medical History: Reports: Hx Sleep Apnea Denies: Hx Asthma, Hx Bronchitis, Hx COPD, Hx Pneumonia, Hx Tuberculosis Neurological Medical History: Denies: Hx Cerebrovascular Accident, Hx Seizures Renal/ Medical History: Reports: Hx Benign Prostatic Hyperplasia. Denies: Hx Peritoneal Dialysis GI Medical History: Reports: Hx Gastroesophageal Reflux Disease Musculoskeltal Medical History: Reports Hx Arthritis - BACK, KNEES, NECK, WRISTS Psychiatric Medical History: Reports: Hx Post Traumatic Stress Disorder Past Surgical History: Reports: Hx Cardiac Catheterization - 2 stents, Hx Coronary Stent - x 2, Hx Herniorrhaphy - BILATERAL INGUINAL, Hx Inguinal Hernia. Denies: Hx Pacemaker - Immunizations Hx Diphtheria, Pertussis, Tetanus Vaccination: No Physical Exam - Vital signs Vitals: Temp Pulse Resp BP Pulse Ox 98.1 F 50 L 13 133/63 H 100 12/10/17 09:24 03/15/18 09:24 12/10/17 09:24 12/10/17 09:24 12/10/17 09:24 Course - Vital Signs Vital signs: Temp Pulse Resp BP Pulse Ox 98.1 F 50 L 13 133/63 H 100 12/10/17 09:24 12/10/17 09:24 12/10/17 09:24 12/10/17 09:24 12/10/17 09:24
--- NOTE | 2017-12-10 10:18 | RADIOLOGY REPORT (SQ) ---
EXAM DESCRIPTION: CHEST SINGLE VIEW COMPLETED DATE/TIME: 12/10/2017 10:09 am REASON FOR STUDY: chest pain COMPARISON: 02/04/2017. EXAM PARAMETERS: NUMBER OF VIEWS: One view. TECHNIQUE: Single frontal radiographic view of the chest acquired. RADIATION DOSE: NA LIMITATIONS: None. FINDINGS: LUNGS AND PLEURA: No opacities, masses or pneumothorax. No pleural effusion. MEDIASTINUM AND HILAR STRUCTURES: No masses. Contour normal. HEART AND VASCULAR STRUCTURES: Heart normal in size. Normal vasculature. BONES: No acute findings. HARDWARE: None in the chest. OTHER: No other significant finding. IMPRESSION: NO ACUTE RADIOGRAPHIC FINDING IN THE CHEST. TECHNICAL DOCUMENTATION: JOB ID: [id number] [email or web address]- All Rights Reserved Reading location - IP/workstation name: [email or web address]
[2017-12-10 10:50] LABS: ABSOLUTE EOSINOPHILS # (AUTO) 0.1 10^3/uL (0.0-0.6); ABSOLUTE LYMPHOCYTES (AUTO) 0.9 10^3/uL (0.5-4.7); ABSOLUTE MONOCYTES (AUTO) 0.5 10^3/uL (0.1-1.4); ABSOLUTE NEUT (AUTO) 2.8 10^3/uL (1.7-8.2); BASOPHILS % (AUTO) 0.9 % (0-2); EOSINOPHILS % (AUTO) 3.1 % (0-6); HEMATOCRIT 33.2 % (37.9-51.0); HEMOGLOBIN 11.3 g/dL (13.5-17.0); LYMPHOCYTES % (AUTO) 21.4 % (13-45); MEAN CORPUSCULAR HEMOGLOBIN 32.6 pg (27.0-33.4); MEAN CORPUSCULAR HGB CONC 34.1 g/dL (32.0-36.0); MEAN CORPUSCULAR VOLUME 96 fl (80-97); MONOCYTES % (AUTO) 10.8 % (3-13); PLATELET COUNT 143 10^3/uL (150-450); RED BLOOD COUNT 3.47 10^6/uL (4.35-5.55); RED CELL DISTRIBUTION WIDTH 13.5 % (11.5-14.0); SEGMENTED NEUTROPHILS % (AUTO) 63.8 % (42-78); TOTAL CELLS COUNTED % (AUTO) 100 %; WHITE BLOOD COUNT 4.4 10^3/uL (4.0-10.5)
[2017-12-10 11:05] LABS: ALANINE AMINOTRANSFERASE 33 U/L (21-72); ALBUMIN 3.9 g/dL (3.5-5.0); ALKALINE PHOSPHATASE 53 U/L (38-126); ANION GAP 9 (5-19); ASPARTATE AMINO TRANSFERASE 22 U/L (17-59); BILIRUBIN,DIRECT 0.1 mg/dL (0.0-0.4); BILIRUBIN,TOTAL 0.4 mg/dL (0.2-1.3); BLOOD UREA NITROGEN 20 mg/dL (7-20); CALCIUM 9.1 mg/dL (8.4-10.2); CARBON DIOXIDE 30 mmol/L (22-30); CHLORIDE 105 mmol/L (98-107); CREATINE KINASE 69 U/L (55-170); GLUCOSE 105 mg/dL (75-110); POTASSIUM 4.2 mmol/L (3.6-5.0); SODIUM 143.6 mmol/L (137-145); TOTAL PROTEIN 6.5 g/dL (6.3-8.2)
[2017-12-10 11:17] LABS: CREATINE KINASE MB 0.33 ng/mL (<4.55)
[2017-12-10 11:19] LABS: TROPONIN I < 0.012 ng/mL
--- NOTE | 2017-12-10 11:33 | ER Document Report ---
ED General - General Mode of Arrival: Ambulatory Information source: Patient TRAVEL OUTSIDE OF THE [place] IN LAST 30 DAYS: No <YOLANDA MORGAN - Last Filed: 12/10/17 15:12> <SUEBANDARSANDRA - Last Filed: 12/10/17 15:14> - General Chief Complaint: Chest Pain Stated Complaint: CHEST PAIN Time Seen by Provider: 12/10/17 09:24 Notes: Patient is an 82 year old male presenting to the emergency department with a history of high cholesterol, HTN, and cardiac stents x2 presents to the emergency department complaining of persistent chest pain onset yesterday. Patient states that his pain yesterday started in his chest and radiated into the right side of the neck. Patient states when he woke up this morning the pain was still there but became less severe. Patient states he took Nitro yesterday that alleviated his pain a little. Patient also complain of nausea and diaphoresis. Patient denies exacerbation with movement or trouble breathing. Patient is currently taking Lipitor, Plavix, Aspirin, Metoprolol. Patients PCP is Dr. Garcia. Patient states he had a cath performed 1 year ago and was found unremarkable. (YOLANDA MORGAN) - Related Data Allergies/Adverse Reactions: Sulfa (Sulfonamide Antibiotics) Allergy (Mild, Verified 12/10/17 09:28) Hives Past Medical History - General Information source: Patient - Social History Smoking Status: Former Smoker Cigarette use (# per day): No Chew tobacco use (# tins/day): No Smoking Education Provided: No Frequency of alcohol use: None Family History: CAD, DM, Hypertension, Malignancy Patient has suicidal ideation: No Patient has homicidal ideation: No - Past Medical History Cardiac Medical History: Reports: Hx Atrial Fibrillation, Hx Coronary Artery Disease - STENTS x 2- 7 YR AGO, Hx Hypercholesterolemia, Hx Hypertension - ON MEDS Pulmonary Medical History: Reports: Hx Sleep Apnea Renal/ Medical History: Reports: Hx Benign Prostatic Hyperplasia GI Medical History: Reports: Hx Gastroesophageal Reflux Disease Musculoskeltal Medical History: Reports Hx Arthritis - BACK, KNEES, NECK, WRISTS Psychiatric Medical History: Reports: Hx Post Traumatic Stress Disorder Past Surgical History: Reports: Hx Cardiac Catheterization - 2 stents, Hx Coronary Stent - x 2, Hx Herniorrhaphy - BILATERAL INGUINAL, Hx Inguinal Hernia - Immunizations Hx Diphtheria, Pertussis, Tetanus Vaccination: No Hx Pneumococcal Vaccination: 07/29/13 <YOLANDA MORGAN - Last Filed: 12/10/17 15:12> Review of Systems - Review of Systems Constitutional: See HPI, Diaphoresis EENT: No symptoms reported Cardiovascular: See HPI, Chest pain Respiratory: No symptoms reported Gastrointestinal: See HPI, Nausea Genitourinary: No symptoms reported Male Genitourinary: No symptoms reported Musculoskeletal: No symptoms reported Skin: No symptoms reported Hematologic/Lymphatic: No symptoms reported Neurological/Psychological: No symptoms reported -: Yes All other systems reviewed and negative <YOLANDA MORGAN - Last Filed: 12/10/17 15:12> Physical Exam <YOLANDA MORGAN - Last Filed: 12/10/17 15:12> <SANDRA DAVIS - Last Filed: 12/10/17 15:14> - Vital signs Vitals: Temp Pulse Resp BP Pulse Ox 98.1 F 50 L 13 133/63 H 100 12/10/17 09:24 12/10/17 09:24 12/10/17 09:24 12/10/17 09:24 12/10/17 09:24 - Notes Notes: GENERAL: Alert, interacts well. No acute distress. HEAD: Normocephalic, atraumatic. EYES: Pupils equal, round, and reactive to light. Extraocular movements intact. ENT: Oral mucosa moist, tongue midline. NECK: Full range of motion. Supple. Trachea midline. LUNGS: Clear to auscultation bilaterally, no wheezes, rales, or rhonchi. No respiratory distress. HEART: Regular rate and rhythm. No murmurs, gallops, or rubs. ABDOMEN: Soft, non-tender. Non-distended. Bowel sounds present in all 4 quadrants. EXTREMITIES: Moves all 4 extremities spontaneously. No edema, radial and dorsalis pedis pulses 2/4 bilaterally. No cyanosis. NEUROLOGICAL: Alert and oriented x3. Normal speech. PSYCH: Normal affect, normal mood. SKIN: Warm, dry, normal turgor. No rashes or lesions noted. (CATHYYOLANDA MIRANDA) Course - Laboratory Result Diagrams: 12/10/17 10:32 12/10/17 10:32 <CATHYYOLANDA MIRANDA - Last Filed: 12/10/17 15:12> - Laboratory Result Diagrams: 12/10/17 10:32 12/10/17 10:32 <SANDRA DAVIS - Last Filed: 12/10/17 15:14> - Re-evaluation Re-evalutation: 12/10/17 12:57 CBC shows mild anemia with a hemoglobin 11.3, slightly low platelets at 143, chemistries normal, cardiac enzymes negative, chest x-ray shows no acute process , EKG is nonischemic. Patient is at an elevated risk for acute coronary event given his history of 2 stents however initial troponin is negative. Patient will be given Lovenox shot, he is chest pain-free at this time, he was discussed with Dr. Yola Parr who agrees to accept the patient in observation status to the telemetry care unit. (SANDRA DAVIS) - Vital Signs Vital signs: Temp Pulse Resp BP Pulse Ox 98.1 F 50 L 17 127/64 H 100 12/10/17 09:24 12/10/17 09:24 12/10/17 14:01 12/10/17 14:01 12/10/17 14:01 - Laboratory Laboratory results interpreted by me: 12/10/17 10:32 RBC 3.47 L Hgb 11.3 L Hct 33.2 L Plt Count 143 L - EKG Interpretation by Me Additional EKG results interpreted by me: 12/10/17 12:59 EKG shows sinus bradycardia at a rate of 48, first-degree AV block, normal axis , no ST segment elevations or depressions, T-wave flattening in 1, aVL, V4 through V6 per my interpretation. (SANDRA DAVIS) Discharge <YOLANDA MORGAN - Last Filed: 12/10/17 15:12> - Discharge Admitting Provider: Hospitalist - [facility] Unit Admitted: Telemetry <SANDRA DAVIS - Last Filed: 12/10/17 15:14> - Discharge Clinical Impression: Chest pain, rule out acute myocardial infarction HTN (hypertension) Qualifiers: Hypertension type: essential hypertension Qualified Code(s): I10 - Essential ( primary) hypertension Condition: Fair Disposition: ADMITTED OBSERVATION Scribe Attestation: 12/10/17 15:14 I personally performed the services described in the documentation, reviewed and edited the documentation which was dictated to the scribe in my presence, and it accurately records my words and actions. (SANDRA DAVIS) Scribe Documentation - Scribe Written by [email or web address]:: Davie Hyman, 12/10/2017 11:35 acting as scribe for :: Stephanie <YOLANDA MORGAN - Last Filed: 12/10/17 15:12>
[2017-12-10] MEDS ORDERED: ENOXAPARIN SODIUM INJ 80 MG/0.8 ML DISP.SYRIN SUBCUT ONE (12:18)
--- NOTE | 2017-12-10 13:59 | EKG REPORT ---
SEVERITY:- BORDERLINE ECG - SINUS BRADYCARDIA BORDERLINE T ABNORMALITIES, ANT-LAT LEADS : Confirmed by: Isac Ring MD 10-Dec-2017 13:58:19
--- NOTE | 2017-12-10 14:03 | PDOC H&P ---
History of Present Illness Admission Date/PCP: 12/10/17 13:21 Dr Eden BRAVO [place] [employer] Chain Worker: Dr Cory Garcia in [place], [place] Radiation Oncologist: Dr. Barber Patient complains of: Chest pain History of Present Illness: DEAN BURRELL is an 82 year old male who was in his usual state of health until yesterday. His past medical history is significant for coronary artery disease and he had 2 stents placed in an unknown vessel 10-11 years ago. Last year he had a cardiac catheterization and was told that 1 of his vessels was 40 % occluded and that he had nonobstructing disease in his other vessels. In any event the patient was sitting at his computer working yesterday and he developed a substernal chest pain. At first it was quite mild but then it worsened and radiated up his chest and towards the right neck. He had some mild nausea associated with this. There was nothing that made it worse or better. It was just a constant pain. He went to bed last night and was able to go to sleep but got up this morning and the pain quickly returned. He tried some sublingual nitroglycerin and a nitroglycerin patch at home without too much relief. He states these medications were quite old. When he arrived in the emergency room his chest pain did relieve resolved with nitroglycerin. Currently he is quite comfortable. Past Medical History Cardiac Medical History: Reports: Coronary Artery Disease - STENTS x 2- 7 YR AGO. Cardiac catheterization revealing nonobstructive dis, Hyperlipidema, Hypertension - ON MEDS Denies: Myocardial Infarction Pulmonary Medical History: Reports: Sleep Apnea Denies: Asthma, Bronchitis, Chronic Obstructive Pulmonary Disease (COPD), Pneumonia, Tuberculosis EENT Medical History: Reports: None Neurological Medical History: Denies: Hemorrhagic CVA, Ischemic CVA, Seizures Endocrine Medical History: Reports: None Renal/ Medical History: Reports: None Malignancy Medical History: Reports: Other - Recently diagnosed with prostate cancer GI Medical History: Reports: Gastroesophageal Reflux Disease, Other - Lower GI bleeding 2 years ago due to a polyp Musculoskeltal Medical History: Reports: Arthritis - BACK, KNEES, NECK, WRISTS Skin Medical History: Reports: None Psychiatric Medical History: Reports: Post Traumatic Stress Disorder Hematology: Denies: Anemia Infectious Medical History: Reports: None Past Surgical History Past Surgical History: Reports: Cardiac Catheterization - 2 stents, Coronary Stent - x 2, Herniorrhaphy - BILATERAL INGUINAL Denies: Pacemaker Social History Information Source: Patient Lives with: Spouse/Significant other Smoking Status: Former Smoker Frequency of Alcohol Use: None Hx Recreational Drug Use: No Drugs: None Hx Prescription Drug Abuse: No - Advance Directive Resuscitation Status: Full Code Surrogate healthcare decision maker:: Diane Burrell () [phone] Family History Family History: CAD, DM, Hypertension, Malignancy Parental Family History Reviewed: Yes Children Family History Reviewed: Yes Sibling(s) Family History Reviewed.: Yes Medication/Allergy Allergies/Adverse Reactions: Sulfa (Sulfonamide Antibiotics) Allergy (Mild, Verified 12/10/17 09:28) Hives Review of Systems Constitutional: ABSENT: anorexia, chills, fatigue, fever(s), headache(s) Eyes: ABSENT: visual disturbances Ears: ABSENT: hearing changes Nose, Mouth, and Throat: ABSENT: headache(s), sore throat Cardiovascular: PRESENT: chest pain. ABSENT: edema, orthropnea, palpitations Respiratory: ABSENT: cough, dyspnea, hemoptysis, sputum Gastrointestinal: PRESENT: nausea. ABSENT: abdominal pain, constipation, diarrhea, dysphagia, vomiting Genitourinary: ABSENT: dysuria, hematuria Musculoskeletal: ABSENT: joint swelling Integumentary: ABSENT: rash, wounds Neurological: ABSENT: abnormal gait, abnormal speech, confusion, dizziness, focal weakness, syncope Psychiatric: ABSENT: anxiety, depression, homidical ideation, suicidal ideation Endocrine: ABSENT: cold intolerance, heat intolerance, polydipsia, polyuria Hematologic/Lymphatic: ABSENT: easy bleeding, easy bruising Physical Exam Vital Signs: Temp Pulse Resp BP Pulse Ox 98.1 F 50 L 12 136/71 H 100 12/10/17 09:24 12/10/17 09:24 12/10/17 12:01 12/10/17 12:01 12/10/17 12:01 General appearance: PRESENT: no acute distress, well-developed, well-nourished Head exam: PRESENT: atraumatic, normocephalic Eye exam: PRESENT: conjunctiva pink, EOMI, PERRLA. ABSENT: scleral icterus Ear exam: PRESENT: normal external ear exam Mouth exam: PRESENT: moist, tongue midline Neck exam: ABSENT: carotid bruit, JVD, lymphadenopathy, thyromegaly Respiratory exam: PRESENT: clear to auscultation saul. ABSENT: rales, rhonchi, wheezes Cardiovascular exam: PRESENT: RRR. ABSENT: diastolic murmur, rubs, systolic murmur Pulses: PRESENT: normal dorsalis pedis pul Vascular exam: PRESENT: normal capillary refill GI/Abdominal exam: PRESENT: normal bowel sounds, soft. ABSENT: distended, guarding, mass, organolmegaly, rebound, tenderness Rectal exam: PRESENT: deferred Extremities exam: PRESENT: full ROM. ABSENT: calf tenderness, clubbing, pedal edema Musculoskeletal exam: PRESENT: ambulatory Neurological exam: PRESENT: alert, awake, oriented to person, oriented to place , oriented to time, oriented to situation, CN II-XII grossly intact. ABSENT: motor sensory deficit Psychiatric exam: PRESENT: appropriate affect, normal mood. ABSENT: homicidal ideation, suicidal ideation Skin exam: PRESENT: dry, intact, warm. ABSENT: cyanosis, rash Results Impressions: Chest X-Ray 12/10/17 09:25 IMPRESSION: NO ACUTE RADIOGRAPHIC FINDING IN THE CHEST. Assessment & Plan - Diagnosis (1) Chest pain Is this a current diagnosis for this admission?: Yes Plan: The patient has known coronary artery disease with nonobstructing disease per cardiac cath 1 year ago. He reportedly had one vessel that was at least 40% occluded. His symptoms are concerning for a cardiac source to his chest pain. He will be placed in observation in the hospital. We will trend his serial troponins overnight. I am going to order a 2D echocardiogram as well as stress testing. I will get Dr. Watson from the cardiology service to see the patient as well. We will place nitro paste and started on full dose Lovenox. I am increasing his aspirin to 325 mg daily. He will be placed on low-dose beta- brayan, continue his arb and I am going to increase his statin medication to 80 mg of atorvastatin once daily. We will follow-up with all of these results in the morning. (2) CAD (coronary artery disease) Qualifiers: Coronary Disease-Associated Artery/Lesion type: lummi artery [place] vs. transplanted heart: lummi heart Associated angina: with stable angina Qualified Code(s): I25.118 - Atherosclerotic heart disease of lummi coronary artery with other forms of angina pectoris Is this a current diagnosis for this admission?: Yes Plan: With a known nonobstructing disease. Cardiology has been consulted. Continue medications as above. He will remain on a remote monitor overnight (3) Bradycardia Is this a current diagnosis for this admission?: Yes Plan: He states he is always had bradycardia and he is asymptomatic. This is a chronic problem. (4) HTN (hypertension) Qualifiers: Hypertension type: essential hypertension Qualified Code(s): I10 - Essential (primary) hypertension Is this a current diagnosis for this admission?: Yes Plan: He is on Micardis which will be continued. I have stopped his atenolol and place the patient on low-dose Toprol. (5) Hyperlipidemia Qualifiers: Hyperlipidemia type: unspecified Qualified Code(s): E78.5 - Hyperlipidemia , unspecified Is this a current diagnosis for this admission?: Yes Plan: I am increasing his atorvastatin to 80 mg daily. (6) Sleep apnea Is this a current diagnosis for this admission?: Yes Plan: He states he uses his CPAP most of the time but has not used it recently as he has had some congestion. Will consult respiratory to set up CPAP tonight or we will get his to bring his machine in from home. (7) History of atrial fibrillation Is this a current diagnosis for this admission?: Yes Plan: It is in his medical record at this hospital that he has a history of atrial fibrillation. The patient cannot recall whether he has ever had any trouble with this. Certainly he is not on any treatment at this time. We will place him on a remote monitor. He is not on anticoagulation as an outpatient. He has been placed on full dose Lovenox here in the hospital. Cardiology has been consulted. (8) GERD (gastroesophageal reflux disease) Qualifiers: Esophagitis presence: without esophagitis Qualified Code(s): K21.9 - Gastro -esophageal reflux disease without esophagitis Is this a current diagnosis for this admission?: Yes Plan: Continue Dexilant (9) History of lower GI bleeding Is this a current diagnosis for this admission?: Yes Plan: The patient had a bleeding polyp a few years ago that was cauterized by general surgery during a colonoscopy. He has had no further episodes of bleeding since that time. He has followed with Dr. Fiore from gastroenterology in the past. We will just have to watch him quite closely for signs of bleeding as I am increasing his aspirin and in the short-term he will be on full dose anticoagulation. - Time Time Spent: 50 to 70 Minutes - Inpatient Certification Medical Necessity: Other - The patient will be placed in observation in the hospital. He needs to be ruled out for acute coronary syndrome. Hopefully all of his test results will be negative and he can be discharged home tomorrow. I expect him to spend less than 2 midnights in the hospital at this point. His symptoms are rather atypical but he does have a strong history.
[2017-12-10] MEDS ORDERED: AZELASTINE HCL NS SCH (14:30)
[2017-12-10 15:49] LABS: CREATINE KINASE MB 0.33 ng/mL (<4.55)
[2017-12-10 15:50] LABS: TROPONIN I < 0.012 ng/mL
[2017-12-10] MEDS: NITROGLYCERIN 2% OINTMENT 1 GM PACKET TP SCH ×2 (16:20→20:43)
--- NOTE | 2017-12-10 18:20 | XCELERA REPORT ---
[address] [address] Transthoracic Echocardiogram Report Name: DEAN GARCIA Age: 82 yrs Gender: Male : 1935 Patient Status: Inpatient Patient Location: [address] [place] [address] Study Date: 12/10/2017 02:26 PM Height: 69 in Weight: 156 lb BSA: 1.9 m2 Procedure: A complete two-dimensional transthoracic echocardiogram was performed (2D, M-mode, spectral and color flow Doppler). The study was technically difficult with many images being suboptimal in quality. Reason For Study: CHEST PAIN Ordering Physician: FRANKLYN RM Performed By: Amirah Mccrary Interpretation Summary The left ventricular ejection fraction is normal. The left ventricle is grossly normal size. Doppler measurements suggest pseudonormalized left ventricular relaxation, which is associated with grade II/IV or mild to moderate diastolic dysfunction Wall motion cannot be accurately commented on, but no definite regional wall motion abnormalities noted. There is borderline concentric left ventricular hypertrophy. The right ventricular systolic function is normal. The left atrial size is normal. The right atrium is normal in size There is a mild amount of mitral regurgitation There is no mitral valve stenosis. There is a mild amount of aortic regurgitation There is no aortic valve stenosis There is a trace or physiologic amount of tricuspid regurgitation Tricuspid regurgitation jet envelope not well defined to measure RV systolic pressure accurately. The aortic root is not well visualized but is probably normal size. The inferior vena cava was not well visualized There is no pericardial effusion. MMode/2D Measurements & Calculations RVDd: 2.6 cm LVIDd: 5.0 cm FS: 36.3 % Ao root diam: 3.2 cm IVSd: 0.84 cm LVIDs: 3.2 cm EDV(Teich): 120.7 ml LVPWd: 0.79 cmESV(Teich): 41.3 ml Ao root area: 8.3 cm2 EF(Teich): 65.8 % LA dimension: 3.5 cm LVOT diam: 2.1 cm LVOT area: 3.6 cm2 Doppler Measurements & Calculations MV E max babak: MV P1/2t max babak: Ao V2 max: AI max babak: 71.6 cm/sec 72.3 cm/sec 119.4 cm/sec 317.8 cm/sec MV A max babak: MV P1/2t: 80.6 msec Ao max PG: AI max P.4 cm/sec MVA(P1/2t): 2.7 cm2 5.7 mmHg 40.4 mmHg MV E/A: 1.1 MV dec slope: DIANN(V,D): 2.9 cm2AI dec slope: 263.0 cm/sec2 76.5 cm/sec2 AI P1/2t: 1218 msec LV V1 max PG: PA V2 max: TR max babak: 3.6 mmHg 60.2 cm/sec 199.7 cm/sec LV V1 max: PA max P.5 mmHg TR max P.6 cm/sec 16.0 mmHg Left Ventricle The left ventricle is grossly normal size. There is borderline concentric left ventricular hypertrophy. The left ventricular ejection fraction is normal. Doppler measurements suggest pseudonormalized left ventricular relaxation, which is associated with grade II/IV or mild to moderate diastolic dysfunction. Wall motion cannot be accurately commented on, but no definite regional wall motion abnormalities noted. Right Ventricle The right ventricle is grossly normal size. There is normal right ventricular wall thickness. The right ventricular systolic function is normal. Atria The right atrium is normal in size. The left atrial size is normal. Interarterial septum not well visualized and not well dopplered. Cannot comment on ASD/PFO presence. Mitral Valve The mitral valve leaflets are sclerotic, but show no functional abnormalities. There is no mitral valve stenosis. There is a mild amount of mitral regurgitation. Aortic Valve The aortic valve is grossly normal. There is no aortic valve stenosis. There is a mild amount of aortic regurgitation. Tricuspid Valve The tricuspid valve is not well visualized secondary to technical limitations. There is no tricuspid stenosis. There is a trace or physiologic amount of tricuspid regurgitation. Tricuspid regurgitation jet envelope not well defined to measure RV systolic pressure accurately. Pulmonic Valve The pulmonic valve is not well visualized. Great Vessels The aortic root is not well visualized but is probably normal size. The inferior vena cava was not well visualized. Effusions There is no pericardial effusion. : FRANKLYN RM > Kareem Watson
[2017-12-10 20:09] LABS: CREATINE KINASE MB 0.33 ng/mL (<4.55)
[2017-12-10 20:10] LABS: TROPONIN I < 0.012 ng/mL
--- NOTE | 2017-12-10 21:00 | Progress Note ---
Provider Note Provider Note: Patient seen and examined. Patient gives history of prior stent placement. Feel that there is intermediate probability that chest pain is from underlying CAD. 2D echo results reviewed. Patient being scheduled for a nuclear stress test. Patient medical regimen reviewed and noted to be satisfactory at this time.
[2017-12-10] MEDS ORDERED: ENOXAPARIN SODIUM INJ 80 MG/0.8 ML DISP.SYRIN SUBCUT SCH (22:00)
[2017-12-11 01:48] LABS: TROPONIN I < 0.012 ng/mL
[2017-12-11] MEDS: NITROGLYCERIN 2% OINTMENT 1 GM PACKET TP SCH ×4 (03:09→20:59)
[2017-12-11 04:58] LABS: HEMATOCRIT 32.3 % (37.9-51.0); MEAN CORPUSCULAR HEMOGLOBIN 32.5 pg (27.0-33.4); MEAN CORPUSCULAR HGB CONC 34.1 g/dL (32.0-36.0); MEAN CORPUSCULAR VOLUME 95 fl (80-97); PLATELET COUNT 139 10^3/uL (150-450); RED BLOOD COUNT 3.39 10^6/uL (4.35-5.55); RED CELL DISTRIBUTION WIDTH 13.5 % (11.5-14.0); WHITE BLOOD COUNT 5.7 10^3/uL (4.0-10.5)
[2017-12-11 05:19] LABS: ANION GAP 6 (5-19); BLOOD UREA NITROGEN 19 mg/dL (7-20); CALCIUM 8.6 mg/dL (8.4-10.2); CARBON DIOXIDE 29 mmol/L (22-30); CHLORIDE 107 mmol/L (98-107); CHOLESTEROL 102.79 mg/dL (0-200); GLUCOSE 100 mg/dL (75-110); PHOSPHORUS 3.3 mg/dL (2.5-4.5); SODIUM 142.3 mmol/L (137-145); TRIGLYCERIDES 36 mg/dL (<150)
[2017-12-11] MEDS: LANSOPRAZOLE 30 MG TAB.RAP.DR PO SCH (05:25)
[2017-12-11 05:30] LABS: DIRECT LDL 43 mg/dL (<100)
--- NOTE | 2017-12-11 08:08 | EKG REPORT ---
SEVERITY:- BORDERLINE ECG - SINUS RHYTHM BORDERLINE T WAVE ABNORMALITIES : Confirmed by: Isac Ring MD 11-Dec-2017 08:08:34
[2017-12-11] MEDS ORDERED: (PENDING PHARMACY ID) (Multivitamin [Multivitamins] 1 CAP) PO SCH (10:00)
[2017-12-11] MEDS ORDERED: (PENDING PHARMACY ID) (Dexlansoprazole [Dexilant 30 Mg Capsule] 30 MG) PO SCH (10:00)
[2017-12-11] MEDS ORDERED: AZELASTINE HCL NS SCH (10:00)
[2017-12-11] MEDS ORDERED: (PENDING PHARMACY ID) (Ranitidine Hcl [Zantac 150 Mg Tablet] 150 MG) PO SCH (10:00)
[2017-12-11] MEDS ORDERED: BUDESONIDE/FORMOTEROL 160-4.5 MCG 60 PUFF/6 GM MDI IH SCH (10:00)
[2017-12-11] MEDS ORDERED: (PENDING PHARMACY ID) (Telmisartan [Micardis 80 Mg Tablet] 80 MG) PO SCH (10:00)
[2017-12-11] MEDS: ASPIRIN 325 MG TABLET, ENT COATED PO SCH (10:27)
[2017-12-11 10:28] LABS: APPEARANCE,URINE CLEAR; BILIRUBIN,URINE NEGATIVE (NEGATIVE); COLOR,URINE STRAW; GLUCOSE, URINE NEGATIVE (NEGATIVE); KETONES,URINE NEGATIVE (NEGATIVE); LEUKOCYTE ESTERASE,URINE NEGATIVE (NEGATIVE); NITRITE,URINE NEGATIVE (NEGATIVE); PROTEIN,URINE NEGATIVE (NEGATIVE); URINE SPECIFIC GRAVITY 1.012; UROBILINOGEN,URINE NEGATIVE mg/dL (<2.0)
[2017-12-11] MEDS: LOSARTAN POTASSIUM 50 MG TABLET PO SCH (10:29)
[2017-12-11] MEDS: MULTIVITAMIN TABLET PO SCH (10:31)
[2017-12-11] MEDS: FAMOTIDINE 20 MG TABLET PO SCH (10:32)
[2017-12-11] MEDS: DOXAZOSIN MESYLATE 4 MG TABLET PO SCH (10:32)
[2017-12-11] MEDS: METOPROLOL SUCCINATE 25 MG TAB.SR.24H PO SCH (13:21)
--- NOTE | 2017-12-11 14:11 | DRAGON STRESS TEST REPORT ---
INTRAVENOUS LEXISCAN CARDIOLITE STRESS TEST USING SINGLE PHOTON EMMISION COMPUTERIZED TOMOGRAPHIC. DATE OF PROCEDURE: December 11, 2017, INDICATION : Chest pain, known CAD. CARDIAC RISK FACTORS: Hypertension, dyslipidemia, family history of coronary artery disease. RESTING EKG: Sinus rhythm, nonspecific T-wave inversion noted V3 and V4. STRESS EKG: No significant ST segment changes noted with LexiScan bolus REASON FOR TERMINATION: Protocol. PROCEDURE REPORT: Baseline heart rate 50 beats per minute with blood pressure of 167/78. Patient had no significant complaints. Heart rate at 2 minutes post bolus 90 with a blood pressure of 150/71. 3 minutes post bolus heart rate 63 with blood pressure of 172/89. No significant EKG changes were noted. Patient had no significant complaints during the procedure or postprocedure. Patient injected with Aminophyllin 75 mg at 3 minutes or later after Lexiscan bolus. CONCLUSIONS: Normal EKG and hemodynamic response to IV LexiScan. NUCLEAR DATA: At rest the patient was given 10.42 millicuries of technetium 99 sestamibi injected intravenously. As per protocol rest gated SPECT images were obtained. On day of stress test, the patient was given intravenous LexiScan at a dose of 0.4 mg in 5 mL intravenously, followed by flush with normal saline. Subsequently the stress dose of 30.7 millicuries of technetium 99 sestamibi was injected intravenously. As per protocol stress gated images were obtained. NUCLEAR INTERPRETATION: Both raw and processed data were used for interpretation. Visual, qualitative, computer-generated quantitative data was used. There was good myocardial uptake of technetium compound. Motion artifact and soft tissue attenuations were noted. Increased visceral uptake was noted. No definitive areas of transient perfusion defect noted. Decreased uptake noted in the LV apex but that is felt to be related to apical thinning as no wall motion abnormalities were noted on gated imaging. Mild decreased uptake noted in the basal and mid inferior wall felt to be mostly related to attenuation artifact but feel that there is a mild fixed defect indicative of mild scar being present in the mid inferior wall. EKG gated imaging showed LV EF at 48 %, rest and stress gated EF similar visually. No definite regional wall motion abnormalities were noted. T. I D. ratio was 1.04. Lung heart ratio noted to be within normal limits 0.30. No significant extracardiac and abnormal radiotracer activities were noted. RV free wall uptake was noted to be WNL. IMPRESSION: Also refer to comments under nuclear interpretation. Also test results needs to be interpreted in the context of pretest probability. 1. No definitive areas of transient perfusion defect noted. 2. Mild fixed defect noted in the mid inferior wall indicative of mild scar. 3. EKG gated imaging shows left ventricular ejection fraction of approx. 48 %. 4. Clinical correlation requested as occasionally single vessel disease or balanced ischemia could be missed. In approximately 10% of the cases Lexiscan may not cause adequate vasodilatory stress. RECOMMENDATIONS: Aggressive risk factor modification and medical management. Further evaluation may be needed if continued symptoms or other high risk indicators are noted on clinical evaluation. Close cardiology follow-up is also recommended. Clinical correlation with echocardiogram derived ejection fraction. Inability to exercise by itself can lead to increased cardiovascular event risks. Consider cardiology consultation and or follow-up if clinically indicated. I am available for cardiology evaluation and consultation if requested by the transplant immunologist, unless patient already has a billing spec. GHULAM
[2017-12-11] MEDS ORDERED: REGADENOSON INJ 0.4 MG/5 ML DISP.SYRIN IV ONE (15:52)
[2017-12-11] MEDS ORDERED: AMINOPHYLLINE INJ/PF 250 MG/10 ML SDV IV ONE (15:52)
[2017-12-11 16:18] LABS: HEMATOCRIT 34.4 % (37.9-51.0); HEMOGLOBIN 11.7 g/dL (13.5-17.0); MEAN CORPUSCULAR HEMOGLOBIN 32.4 pg (27.0-33.4); MEAN CORPUSCULAR HGB CONC 33.9 g/dL (32.0-36.0); MEAN CORPUSCULAR VOLUME 95 fl (80-97); PLATELET COUNT 159 10^3/uL (150-450); RED CELL DISTRIBUTION WIDTH 13.4 % (11.5-14.0)
--- NOTE | 2017-12-11 17:58 | PDOC PROGRESS REPORT ---
Subjective Progress Note for:: 12/11/17 Reason For Visit: CHEST PAIN Physical Exam Vital Signs: Temp Pulse Resp BP Pulse Ox 97.6 F 82 18 138/82 H 100 12/11/17 11:07 12/11/17 14:00 12/11/17 07:57 12/11/17 13:45 12/11/17 11:07 Intake & Output 12/10/17 12/11/17 12/12/17 06:59 06:59 06:59 Intake Total 325 Output Total 500 Balance -175 Weight 71.5 kg General appearance: PRESENT: no acute distress, cooperative, well-developed, well-nourished Head exam: PRESENT: atraumatic, normocephalic Eye exam: PRESENT: conjunctiva pink, EOMI, PERRLA. ABSENT: scleral icterus Ear exam: PRESENT: normal external ear exam Mouth exam: PRESENT: moist, tongue midline Neck exam: ABSENT: carotid bruit, JVD, lymphadenopathy, thyromegaly Respiratory exam: PRESENT: clear to auscultation saul, symmetrical, unlabored. ABSENT: rales, rhonchi, wheezes Cardiovascular exam: PRESENT: RRR, +S1, +S2. ABSENT: diastolic murmur, rubs, systolic murmur Pulses: PRESENT: normal dorsalis pedis pul Vascular exam: PRESENT: normal capillary refill GI/Abdominal exam: PRESENT: normal bowel sounds, soft. ABSENT: distended, guarding, mass, organolmegaly, rebound, tenderness Rectal exam: PRESENT: deferred, heme (+) stool Extremities exam: PRESENT: full ROM. ABSENT: calf tenderness, clubbing, pedal edema Neurological exam: PRESENT: alert, awake, oriented to person, oriented to place , oriented to time, oriented to situation, CN II-XII grossly intact. ABSENT: motor sensory deficit Psychiatric exam: PRESENT: appropriate affect, normal mood. ABSENT: homicidal ideation, suicidal ideation Skin exam: PRESENT: dry, intact, warm. ABSENT: cyanosis, rash Results Laboratory Results: 12/11/17 15:37 12/11/17 03:45 12/11/17 12/11/17 12/11/17 03:45 03:45 08:00 WBC 5.7 RBC 3.39 L Hgb 11.0 L Hct 32.3 L MCV 95 MCH 32.5 MCHC 34.1 RDW 13.5 Plt Count 139 L Sodium 142.3 Potassium 4.0 Chloride 107 Carbon Dioxide 29 Anion Gap 6 BUN 19 Creatinine 0.93 Est GFR ( Amer) > 60 Est GFR (Non-Af Amer) > 60 Glucose 100 Calcium 8.6 Phosphorus 3.3 Triglycerides 36 Cholesterol 102.79 LDL Cholesterol Direct 43 VLDL Cholesterol 7.0 L HDL Cholesterol 51 Urine Color STRAW Urine Appearance CLEAR Urine pH 7.0 Ur Specific [place] 1.012 Urine Protein NEGATIVE Urine Glucose (UA) NEGATIVE Urine Ketones NEGATIVE Urine Blood SMALL H Urine Nitrite NEGATIVE Ur Leukocyte Esterase NEGATIVE Urine RBC (Auto) 3 Stool Occult Blood 12/11/17 12/11/17 15:37 16:35 WBC 5.0 RBC 3.60 L Hgb 11.7 L Hct 34.4 L MCV 95 MCH 32.4 MCHC 33.9 RDW 13.4 Plt Count 159 Sodium Potassium Chloride Carbon Dioxide Anion Gap BUN Creatinine Est GFR ( Amer) Est GFR (Non-Af Amer) Glucose Calcium Phosphorus Triglycerides Cholesterol LDL Cholesterol Direct VLDL Cholesterol HDL Cholesterol Urine Color Urine Appearance Urine pH Ur Specific [place] Urine Protein Urine Glucose (UA) Urine Ketones Urine Blood Urine Nitrite Ur Leukocyte Esterase Urine RBC (Auto) Stool Occult Blood POSITIVE 12/10/17 12/10/17 12/11/17 14:59 19:20 01:12 CK-MB (CK-2) 0.33 0.33 0.30 Troponin I < 0.012 < 0.012 < 0.012 Impressions: Chest X-Ray 12/10/17 09:25 IMPRESSION: NO ACUTE RADIOGRAPHIC FINDING IN THE CHEST. Assessment & Plan - Diagnosis (1) Chest pain Is this a current diagnosis for this admission?: Yes Plan: The patient known history of coronary artery disease with nonobstructive disease per cardiac cath 1 year ago. He reportedly had one vessel that was at least 40% occluded. He states that he did not have stenting at that time. He does have symptoms concerning for cardiac chest pain. He was admitted under observational status on continuous cardiac telemetry. Serial troponins overnight were reassuring. Echocardiogram demonstrated LVEF with mild to moderate diastolic dysfunction. There is borderline ventricular hypertrophy. Stress test showed no definitive area of transient perfusion. There is a mild fixed defect noted in the mid inferior wall indicative of a mild scar. Cardiology has been consulted. He is on daily aspirin and atorvastatin 80 mg daily. He is on Cardura 4 mg daily, losartan 100 mg daily, metoprolol XL 12.5 mg daily. (2) Melena Is this a current diagnosis for this admission?: Yes Plan: The patient was initially placed on full dose Lovenox for chest pain and subsequently developed bloody stools. He reports at least 7 bowel movements described as dark red. He does have a history of GI bleed in the past that was determined to be related to a polyp. He states that his last colonoscopy was 4 years ago at that time he has had no bleeding since then. Hemoccult is positive. Lovenox is discontinued. We will monitor overnight and trend hemoglobins. I have spoke with the surgical team; surgeon on tomorrow does do colonoscopies if required. (3) Bradycardia Is this a current diagnosis for this admission?: Yes Plan: The patient reports that he is always bradycardia and is asymptomatic. Of note, nursing reports that the patient was accidentally given a dose of his metoprolol early this morning; he received 25 mg of metoprolol XL at approximately 9:30 this morning. He on continuous cardiac telemetry. Nursing is advised to contact provider for downward trend in HR. (4) HTN (hypertension) Qualifiers: Hypertension type: essential hypertension Qualified Code(s): I10 - Essential (primary) hypertension Is this a current diagnosis for this admission?: Yes Plan: Remains elevated. Continue myocarditis. Continues Toprol-XL; this was started after atenolol was discontinued. Urology has been consulted; appreciate their evaluation recommendations. (5) History of lower GI bleeding Is this a current diagnosis for this admission?: Yes Plan: The patient had a bleeding polyp approximately 4 years ago that was cauterized by general surgery during a colonoscopy. He has had no further episodes of bleeding since that time. Originally, the patient developed melena following full dose Lovenox. Lovenox has been discontinued. See plan as above. (6) Sleep apnea Is this a current diagnosis for this admission?: Yes Plan: CPAP nightly (7) CAD (coronary artery disease) Qualifiers: Coronary Disease-Associated Artery/Lesion type: [place] artery [place] vs. transplanted heart: [place] heart Associated angina: with stable angina Qualified Code(s): I25.118 - Atherosclerotic heart disease of [place] coronary artery with other forms of angina pectoris Is this a current diagnosis for this admission?: Yes Plan: As above. (8) GERD (gastroesophageal reflux disease) Qualifiers: Esophagitis presence: without esophagitis Qualified Code(s): K21.9 - Gastro -esophageal reflux disease without esophagitis Is this a current diagnosis for this admission?: Yes Plan: Continue Dexilant (9) History of atrial fibrillation Is this a current diagnosis for this admission?: Yes Plan: Pt is on continuous cardiac telemetry. Rate controlled; on Toprol-XL. Cardiology has been consulted; appreciate their evaluation and recommendations. (10) Hyperlipidemia Qualifiers: Hyperlipidemia type: unspecified Qualified Code(s): E78.5 - Hyperlipidemia , unspecified Is this a current diagnosis for this admission?: Yes Plan: Atorvastatin 80 mg daily. - Time Time Spent with patient: 25-34 minutes Medications reviewed and adjusted accordingly: Yes Anticipated discharge: Home Within: within 24 hours - If hgb is stable
--- NOTE | 2017-12-11 20:28 | PDOC CONSULTATION ---
Consultation Consult Date: 12/10/17 Attending physician:: OMER CURRAN Consult reason:: Chest pain History of Present Illness Admission Date/PCP: 12/10/17 13:21 CARRIE THOMAS NP Patient complains of: Chest pain History of Present Illness: DEAN GARCIA is an 82 year old male who was in his usual state of health until yesterday. His past medical history is significant for coronary artery disease and he had 2 stents placed in an unknown vessel 10-11 years ago. Last year he had a cardiac catheterization and was told that 1 of his vessels was 40 % occluded and that he had nonobstructing disease in his other vessels. In any event the patient was sitting at his computer working yesterday and he developed a substernal chest pain. At first it was quite mild but then it worsened and radiated up his chest and towards the right neck. He had some mild nausea associated with this. There was nothing that made it worse or better. It was just a constant pain. He went to bed last night and was able to go to sleep but got up this morning and the pain quickly returned. He tried some sublingual nitroglycerin and a nitroglycerin patch at home without too much relief. He states these medications were quite old. When he arrived in the emergency room his chest pain did relieve resolved with nitroglycerin. Currently he is quite comfortable. This history was reviewed and confirmed. Patient does give history of coronary artery disease and is status post coronary artery bypass graft surgery. Patient also describes history of previous coronary stent placement. Patient denied any recurrence of chest pain since admission to the hospital. Patient claims he is fairly active. Past Medical History Cardiac Medical History: Reports: Atrial Fibrillation, Coronary Artery Disease - STENTS x 2- 7 YR AGO, Hyperlipidema, Hypertension - ON MEDS Denies: Myocardial Infarction Pulmonary Medical History: Reports: Sleep Apnea Denies: Asthma, Bronchitis, Chronic Obstructive Pulmonary Disease (COPD), Pneumonia, Tuberculosis EENT Medical History: Reports: None Neurological Medical History: Denies: Hemorrhagic CVA, Ischemic CVA, Seizures Endocrine Medical History: Reports: None Renal/ Medical History: Reports: None Malignancy Medical History: Reports: Other - Recently diagnosed with prostate cancer GI Medical History: Reports: Gastroesophageal Reflux Disease, Other - Lower GI bleeding 2 years ago due to a polyp Musculoskeltal Medical History: Reports: Arthritis - BACK, KNEES, NECK, WRISTS Skin Medical History: Reports: None Psychiatric Medical History: Reports: Post Traumatic Stress Disorder Hematology: Denies: Anemia Infectious Medical History: Reports: None Past Surgical History Past Surgical History: Reports: Cardiac Catheterization - 2 stents, Coronary Stent - x 2, Herniorrhaphy - BILATERAL INGUINAL Denies: Pacemaker Social History Information Source: Patient Lives with: Spouse/Significant other Smoking Status: Former Smoker Frequency of Alcohol Use: None Hx Recreational Drug Use: No Drugs: None Hx Prescription Drug Abuse: No - Advance Directive Resuscitation Status: Full Code Surrogate healthcare decision maker:: Patient spouse is the surrogate decision-maker Family History Family History: CAD, DM, Hypertension, Malignancy Parental Family History Reviewed: Yes Children Family History Reviewed: Yes Sibling(s) Family History Reviewed.: Yes Medication/Allergy Home Medications: Aspirin [Adult Low Dose Aspirin EC] 81 mg PO DAILY 12/10/17 Atenolol [Tenormin] 25 mg PO DAILY 12/10/17 Atorvastatin Calcium [Lipitor 20 mg Tablet] 20 mg PO QHS 12/10/17 Dexlansoprazole [Dexilant 60 mg Capsule] 60 mg PO DAILY 12/10/17 Doxazosin Mesylate [Cardura 4 mg Tablet] 4 mg PO DAILY 12/10/17 Fluticasone/Vilanterol [Breo Ellipta 100-25 Mcg INH] 1 puff IH DAILY 12/10/17 Montelukast Sodium [Singulair 10 mg Tablet] 10 mg PO QHS 12/10/17 Ranitidine HCl [Zantac 150 mg Tablet] 150 mg PO DAILY 12/10/17 Telmisartan [Micardis 80 mg Tablet] 80 mg PO DAILY 12/10/17 Allergies/Adverse Reactions: Sulfa (Sulfonamide Antibiotics) Allergy (Mild, Verified 12/10/17 09:28) Hives Review of Systems Review of Systems: Please see history of present illness and past medical history as wall. Constitutional: No fever or chills reported. Head : No recent chronic headaches, recent head injury. Eyes: No recent eye pain, diplopia, redness, discharge, acute visual changes. Ears: No recent chronic ear pain, acute hearing loss, ear discharge. Oral cavity: No recent ulcerations, bleeding, oral cavity discomfort. Neck: No recent acute neck pain reported. Hematologic: No recent easy bruising or bleeding or hematologic malignancy reported. Lymphatic: No recent lymphatic malignancy, chronic lymphadenopathy reported yet Cardiovascular system review: See history of present illness. Respiratory system review: No recent chronic cough, hemoptysis, blood clots in the lungs reported. Mild Shortness of breath on exertion Gastrointestinal system review: Negative for any recent acute or chronic abdominal pain, hematemesis, melena, recent change in bowel habits. Genitourinary system review: No recent acute or chronic hematuria, flank pain, UTI etc. reported. Skin system review: Negative for any recent abnormal bruising, no rash, no pruritus reported. Neurologic: No prior history of strokes, mini strokes, seizure disorder. Psychologic: No history of major psychosis or major depression reported. Musculoskeletal: Minor aches and pains reported. No acute joint swelling reported. Endocrine: No recent polyuria, polydipsia, recent heat or cold intolerance. Physical Exam Vital Signs: Temp Pulse Resp BP Pulse Ox 97.7 F 45 L 18 134/56 H 99 12/10/17 15:43 12/10/17 15:43 12/10/17 15:43 12/10/17 15:43 12/10/17 15:43 Intake & Output 12/09/17 12/10/17 12/11/17 06:59 06:59 06:59 Intake Total 5 Balance 5 Exam: GENERAL: well-nourished and in no acute distress. Alert and oriented x3 HEAD: Atraumatic, normocephalic. EYES: Pupils equal round and reactive to light, extraocular movements intact, sclera anicteric, conjunctiva are normal. ENT: TMs normal, nares patent, oropharynx clear without exudates. Moist mucous membranes. No oral ulcerations or bleeding gums noted NECK: supple without lymphadenopathy. Trachea is central. No cervical or axillary lymphadenopathy noted. Carotids are 2+, JVD WNL LUNGS: Respiration seems nonlabored, no significant accessory muscle action noted. Breath sounds clear to auscultation bilaterally and equal noted. No wheezes rales or rhonchi noted. No significant dullness noted on percussion. CHEST: Palpation of the chest wall shows no significant chest wall tenderness. No other significant abnormalities noted. HEART: [place] [employer], No PSH, 1/6 KATIA aortic area, 1/6 naylor systolic murmur mitral area, no rubs, no gallops. ABDOMEN: Soft, no significant tenderness appreciated, normoactive bowel sounds. No guarding, no rebound. No rigidity noted . No masses appreciated. EXTREMITIES: Pedal pulses are 1-2+, no calf tenderness noted. No clubbing or cyanosis. Negative pedal edema noted NEUROLOGICAL: Focused neurological exam showed no significant neurologic deficit. Normal speech, no focal weakness appreciated. PSYCH: Normal mood, normal affect. Judgment and insight within normal limits. SKIN: No significant ecchymosis, skin is noted to be warm. MUSCULOSKELETAL EXAM: No significant acute joint swelling noted. Results Laboratory Results: 12/10/17 12/10/17 14:59 19:20 CK-MB (CK-2) 0.33 0.33 Troponin I < 0.012 < 0.012 EKG Comments: Shows sinus rhythm without any acute ST-T wave changes. Impressions: Chest X-Ray 12/10/17 09:25 IMPRESSION: NO ACUTE RADIOGRAPHIC FINDING IN THE CHEST. Assessment & Plan - Diagnosis (1) Chest pain Qualifiers: Ischemic chest pain type: unspecified angina pectoris type Is this a current diagnosis for this admission?: Yes (2) CAD (coronary artery disease) Qualifiers: Coronary Disease-Associated Artery/Lesion type: [place] artery [place] vs. transplanted heart: [place] heart Associated angina: with stable angina Qualified Code(s): I25.118 - Atherosclerotic heart disease of [place] coronary artery with other forms of angina pectoris Is this a current diagnosis for this admission?: Yes (3) HTN (hypertension) Qualifiers: Hypertension type: essential hypertension Qualified Code(s): I10 - Essential (primary) hypertension Is this a current diagnosis for this admission?: Yes (4) GERD (gastroesophageal reflux disease) Qualifiers: Esophagitis presence: without esophagitis Qualified Code(s): K21.9 - Gastro -esophageal reflux disease without esophagitis Is this a current diagnosis for this admission?: Yes (5) Hyperlipidemia Qualifiers: Hyperlipidemia type: unspecified Qualified Code(s): E78.5 - Hyperlipidemia , unspecified Is this a current diagnosis for this admission?: Yes - Notes Notes: Chest pain: Patient has some typical and atypical features of chest pain. Cardiac enzymes so far has been negative. Electrocardiogram did not show any definitive ST segment changes. Multiple differential diagnoses exist in this patient. In descending order of probability this includes underlying coronary artery disease, gastroesophageal reflux, musculoskeletal pain, referred pain from elsewhere, anxiety panic disorder etc.Patient has significant cardiac risk factors, which indicates that there is a intermediate probability of chest discomfort coming from underlying CAD. Feel that it would need to be evaluated further. Discussed evaluation to assess this. In this regard risk benefits of nuclear stress test and other alternative processes were discussed in detail. The patient prefers to undergo nuclear stress test. The small risk of radiation , myocardial infarction, , cardiac arrhythmias, respiratory distress etc. were discussed. Patient understood the risks and gave informed consent. Nuclear stress test was therefore scheduled. For risk evaluation, patient is also being scheduled for a 2-D echocardiogram. Patient questions were answered. CAD: Patient has known history of CAD. Currently admitted with chest pain and had recurrence during the stress test. Now chest pain-free. There were no EKG changes and enzymes are negative. Patient will benefit from a nuclear stress test. Patient will also benefit from a 2-D echocardiogram for risk stratification. Patient to be treated with antiplatelet therapy, high potency statin therapy, beta blockers, angiotensin receptor brayan, KARINA inhibitors et cetera. Patient advised against tobacco abuse in any form. Patient to follow healthy lifestyle, low-cholesterol diet et cetera. Blood pressure goal in this patient is 140/90 or less. This was discussed with the patient. Currently blood pressure under reasonable control. Better medication for this patient are KARINA inhibitor/ARB/beta brayan etc. discussed side effects of uncontrolled hypertension and also severe hypotension. GERD: Patient seems to have this condition. Weigh loss and treatment of sleep apnea if present and when treated tends to help this condition. Recommend small meals, avoid eating within 3 hours of bedtime, avoid other food substances which had led to reflux in the past. Proton pump inhibitors and other antacids are recommended. Hyperlipidemia: LDL goal is less than 70. Recommend statin therapy at least intermediate or high dose, of high potency status. Periodic lipid panel and liver panel is indicated. Patient to report any significant muscle discomfort or other side effects. - Time Time Spent: 30 to 50 Minutes - CODE STATUS was discussed, patient remains full code. Surrogate decision-maker unchanged. Multiple medical problems were addressed. More than 50% of the time spent coordinating care, discussing management plans with involved caregivers. Management plans discussed with involved personnels. Medical decision making was of moderate to high complexity , patient's has multiple comorbidities. Medications reviewed and adjusted accordingly: Yes
--- NOTE | 2017-12-11 20:34 | PDOC PROGRESS REPORT ---
Subjective Progress Note for:: 12/11/17 Subjective:: Patient seems to be doing better. There is no recurrence of chest pain. Pt is denying any chest arm or neck discomfort. Patient denying any PND, orthopnea. Patient denied any sustained palpitations, dizziness, syncope, near syncope. Patient denying any fever chills. Patient denying any other significant discomfort. Patient is maintaining sinus rhythm. Review of systems: Rest review of systems negative. Medications: Medications have been reviewed. Reason For Visit: CHEST PAIN Physical Exam Vital Signs: Temp Pulse Resp BP Pulse Ox 97.8 F 57 L 18 148/63 H 100 12/11/17 15:33 12/11/17 19:00 12/11/17 15:33 12/11/17 15:33 12/11/17 15:33 Intake & Output 12/10/17 12/11/17 12/12/17 06:59 06:59 06:59 Intake Total 325 350 Output Total 500 Balance -175 350 Weight 71.5 kg Exam: GENERAL: well-nourished and in no acute distress. Alert and oriented x3 HEAD: Atraumatic, normocephalic. EYES: Pupils equal round and reactive to light, extraocular movements intact, sclera anicteric, conjunctiva are normal. ENT: TMs normal, nares patent, oropharynx clear without exudates. Moist mucous membranes. No oral ulcerations or bleeding gums noted NECK: supple without lymphadenopathy. Trachea is central. No cervical or axillary lymphadenopathy noted. Carotids are 2+, JVD WNL LUNGS: Respiration seems nonlabored, no significant accessory muscle action noted. Breath sounds clear to auscultation bilaterally and equal noted. No wheezes rales or rhonchi noted. No significant dullness noted on percussion. CHEST: Palpation of the chest wall shows no significant chest wall tenderness. No other significant abnormalities noted. HEART: [place] HUMAN FACTORS ERGONOMIST, No PSH, 1/6 KATIA aortic area, 1/6 naylor systolic murmur mitral area, no rubs, no gallops. ABDOMEN: Soft, no significant tenderness appreciated, normoactive bowel sounds. No guarding, no rebound. No rigidity noted . No masses appreciated. EXTREMITIES: Pedal pulses are 1-2+, no calf tenderness noted. No clubbing or cyanosis. Negative pedal edema noted NEUROLOGICAL: Focused neurological exam showed no significant neurologic deficit. Normal speech, no focal weakness appreciated. PSYCH: Normal mood, normal affect. Judgment and insight within normal limits. SKIN: No significant ecchymosis, skin is noted to be warm. MUSCULOSKELETAL EXAM: No significant acute joint swelling noted. Results Laboratory Results: 12/11/17 15:37 12/11/17 03:45 12/11/17 12/11/17 12/11/17 03:45 03:45 08:00 WBC 5.7 RBC 3.39 L Hgb 11.0 L Hct 32.3 L MCV 95 MCH 32.5 MCHC 34.1 RDW 13.5 Plt Count 139 L Sodium 142.3 Potassium 4.0 Chloride 107 Carbon Dioxide 29 Anion Gap 6 BUN 19 Creatinine 0.93 Est GFR ( Amer) > 60 Est GFR (Non-Af Amer) > 60 Glucose 100 Calcium 8.6 Phosphorus 3.3 Triglycerides 36 Cholesterol 102.79 LDL Cholesterol Direct 43 VLDL Cholesterol 7.0 L HDL Cholesterol 51 Urine Color STRAW Urine Appearance CLEAR Urine pH 7.0 Ur Specific [place] 1.012 Urine Protein NEGATIVE Urine Glucose (UA) NEGATIVE Urine Ketones NEGATIVE Urine Blood SMALL H Urine Nitrite NEGATIVE Ur Leukocyte Esterase NEGATIVE Urine RBC (Auto) 3 Stool Occult Blood 12/11/17 12/11/17 15:37 16:35 WBC 5.0 RBC 3.60 L Hgb 11.7 L Hct 34.4 L MCV 95 MCH 32.4 MCHC 33.9 RDW 13.4 Plt Count 159 Sodium Potassium Chloride Carbon Dioxide Anion Gap BUN Creatinine Est GFR ( Amer) Est GFR (Non-Af Amer) Glucose Calcium Phosphorus Triglycerides Cholesterol LDL Cholesterol Direct VLDL Cholesterol HDL Cholesterol Urine Color Urine Appearance Urine pH Ur Specific [place] Urine Protein Urine Glucose (UA) Urine Ketones Urine Blood Urine Nitrite Ur Leukocyte Esterase Urine RBC (Auto) Stool Occult Blood POSITIVE 12/10/17 12/10/17 12/11/17 14:59 19:20 01:12 CK-MB (CK-2) 0.33 0.33 0.30 Troponin I < 0.012 < 0.012 < 0.012 EKG Comments: Telemetry strips reviewed showed sinus rhythm. No sustained tachycardia or bradycardia was noted. Impressions: Chest X-Ray 12/10/17 09:25 IMPRESSION: NO ACUTE RADIOGRAPHIC FINDING IN THE CHEST. Assessment & Plan - Diagnosis (1) Chest pain Qualifiers: Ischemic chest pain type: unspecified angina pectoris type Is this a current diagnosis for this admission?: Yes (2) HTN (hypertension) Qualifiers: Hypertension type: essential hypertension Qualified Code(s): I10 - Essential (primary) hypertension Is this a current diagnosis for this admission?: Yes (3) CAD (coronary artery disease) Qualifiers: Coronary Disease-Associated Artery/Lesion type: [place] artery [place] vs. transplanted heart: [place] heart Associated angina: with stable angina Qualified Code(s): I25.118 - Atherosclerotic heart disease of [place] coronary artery with other forms of angina pectoris Is this a current diagnosis for this admission?: Yes (4) GERD (gastroesophageal reflux disease) Qualifiers: Esophagitis presence: without esophagitis Qualified Code(s): K21.9 - Gastro -esophageal reflux disease without esophagitis Is this a current diagnosis for this admission?: Yes (5) Hyperlipidemia Qualifiers: Hyperlipidemia type: unspecified Qualified Code(s): E78.5 - Hyperlipidemia , unspecified Is this a current diagnosis for this admission?: Yes - Notes Notes: Chest pain: Patient claims chest pain resolved. This was evaluated with a nuclear stress test. Nuclear stress test was negative for any significant areas of ischemia or any significant areas of scar, except for a mild scar as reported in dictated report.. The nuclear stress test is felt to be relatively low risk. Patient informed that occasionally worse disease and balanced ischemia could be missed. Patient advised aggressive risk factor modification and medical therapy. Patient informed that further evaluation may become necessary if symptoms worsens or there is a development of new symptoms indicative of angina or angina equivalent symptom. CAD: Current regimen reviewed and is felt to be satisfactory. Hypertension: Patient's blood pressure is reasonably well controlled. Hyperlipidemia: Lipid panel was noted to be very satisfactory. Gastroesophageal reflux disease: Stable. Patient to continue with proton pump inhibitor. - Time Time Spent with patient: Patient was seen multiple times. Total time exceeds 40 minutes. In the morning nuclear stress test procedure, risks benefits, alternatives were discussed. Patient seen during the stress test. Patient also seen after stress test when results were discussed with the patient in detail. Patient's questions were answered. Nuclear stress test results were discussed with the patient. Patient was informed that no definitive evidence of pharmacologic stress- induced ischemia noted. A small area of fixed defect noted. Patient informed that occasionally worse disease or balanced ischemia could be missed. However based on the current study results, would recommend aggressive risk factor modification and medical therapy. It may also be worthwhile to consider evaluation or empiric management of other causes of chest pain. Should no other cause be found and if persistent in having chest pain, then cardiac catheterization should be considered. Right now, recommendations are for aggressive risk factor modification and medical management. Time with patient: Greater than 35 minutes Medications reviewed and adjusted accordingly: Yes
[2017-12-12] MEDS: NITROGLYCERIN 2% OINTMENT 1 GM PACKET TP SCH ×4 (04:05→20:37)
[2017-12-12] MEDS: LANSOPRAZOLE 30 MG TAB.RAP.DR PO SCH (06:07)
[2017-12-12 07:05] LABS: HEMATOCRIT 27.8 % (37.9-51.0); HEMOGLOBIN 9.7 g/dL (13.5-17.0); MEAN CORPUSCULAR VOLUME 94 fl (80-97); PLATELET COUNT 144 10^3/uL (150-450); RED BLOOD COUNT 2.95 10^6/uL (4.35-5.55); RED CELL DISTRIBUTION WIDTH 13.5 % (11.5-14.0); WHITE BLOOD COUNT 5.7 10^3/uL (4.0-10.5)
[2017-12-12] MEDS: FAMOTIDINE 20 MG TABLET PO SCH (10:43)
[2017-12-12] MEDS: MULTIVITAMIN TABLET PO SCH (10:43)
[2017-12-12] MEDS: LOSARTAN POTASSIUM 50 MG TABLET PO SCH (10:44)
[2017-12-12] MEDS: DOXAZOSIN MESYLATE 4 MG TABLET PO SCH (10:44)
[2017-12-12] MEDS: METOPROLOL SUCCINATE 25 MG TAB.SR.24H PO SCH (10:45)
[2017-12-12] MEDS: ASPIRIN 325 MG TABLET, ENT COATED PO SCH (10:46)
--- NOTE | 2017-12-12 13:51 | PDOC PROGRESS REPORT ---
Subjective Subjective:: I was asked to evaluate Mr. Burrell for cardiac risk stratification for proposed colonoscopy. Patient was admitted few days ago with complaints of chest pain and he does have previous history of coronary artery disease with his last PCI around 7-8 years ago per patient. He sees Dr. Garcia in [place] for his primary cardiology needs. He was admitted with chest pain and was ruled out for acute coronary syndrome. Subsequently he had an echocardiogram which showed normal EF and a nuclear stress test which showed a mild inferior defect but no reversible perfusion defects are noted. He was already evaluated by Dr. Watson for his chest pain and risk factor modification and medical management had been advised. Meanwhile patient was on Lovenox therapy and had few bouts of bleeding per rectum with a drop in his hemoglobin/hematocrit. Surgery team was consulted for consideration for colonoscopy and we were told by the primary team that the need a cardiac risk stratification. Patient was seen at bedside and denies any complaints of chest pain or palpitations or shortness of breath. He claims that he is fairly active and only limited in activity by his knee arthritis. He can climb 2 flights of stairs without any chest pain or shortness of breath. He denies any dizziness on ambulation. Reason For Visit: CHEST PAIN Physical Exam Vital Signs: Temp Pulse Resp BP Pulse Ox 98.3 F 71 18 135/80 H 100 12/12/17 12:00 12/12/17 12:00 12/12/17 12:00 12/12/17 12:00 12/12/17 12:00 Intake & Output 12/11/17 12/12/17 12/13/17 06:59 06:59 06:59 Intake Total 325 979 Output Total 500 Balance -175 979 Weight 71.5 kg 71.3 kg General appearance: PRESENT: no acute distress, well-developed, well-nourished Head exam: PRESENT: atraumatic, normocephalic Eye exam: PRESENT: conjunctiva pink, EOMI, PERRLA. ABSENT: scleral icterus Ear exam: PRESENT: normal external ear exam Mouth exam: PRESENT: moist, tongue midline Neck exam: ABSENT: carotid bruit, JVD, lymphadenopathy, thyromegaly Respiratory exam: PRESENT: clear to auscultation saul. ABSENT: rales, rhonchi, wheezes Cardiovascular exam: PRESENT: RRR. ABSENT: diastolic murmur, rubs, systolic murmur Pulses: PRESENT: normal dorsalis pedis pul Vascular exam: PRESENT: normal capillary refill GI/Abdominal exam: PRESENT: normal bowel sounds, soft. ABSENT: distended, guarding, mass, organolmegaly, rebound, tenderness Rectal exam: PRESENT: deferred Extremities exam: PRESENT: full ROM. ABSENT: calf tenderness, clubbing, pedal edema Neurological exam: PRESENT: alert, awake, oriented to person, oriented to place , oriented to time, oriented to situation, CN II-XII grossly intact. ABSENT: motor sensory deficit Psychiatric exam: PRESENT: appropriate affect, normal mood. ABSENT: homicidal ideation, suicidal ideation Skin exam: PRESENT: dry, intact, warm. ABSENT: cyanosis, rash Results Laboratory Results: 12/12/17 06:20 12/11/17 03:45 12/11/17 12/11/17 12/12/17 15:37 16:35 06:20 WBC 5.0 5.7 RBC 3.60 L 2.95 L Hgb 11.7 L 9.7 L Hct 34.4 L 27.8 L MCV 95 94 MCH 32.4 33.0 MCHC 33.9 35.0 RDW 13.4 13.5 Plt Count 159 144 L Stool Occult Blood POSITIVE 12/10/17 12/10/17 12/11/17 14:59 19:20 01:12 CK-MB (CK-2) 0.33 0.33 0.30 Troponin I < 0.012 < 0.012 < 0.012 Impressions: Chest X-Ray 12/10/17 09:25 IMPRESSION: NO ACUTE RADIOGRAPHIC FINDING IN THE CHEST. Assessment & Plan - Diagnosis (1) HTN (hypertension) Qualifiers: Hypertension type: essential hypertension Qualified Code(s): I10 - Essential (primary) hypertension Is this a current diagnosis for this admission?: Yes - Notes Notes: Patient appears euvolemic on exam with no anginal symptoms at this time. Keeping in mind his recent nuclear stress test and echocardiogram reported by Dr. Watson he has no cardiac contraindications to undergo endoscopy/colonoscopy for his GI bleeding. Recommend telemetry monitoring in the perioperative period. We recommend close monitoring of his hemoglobin/hematocrit and workup for GI bleed. He should be continued on his statin and beta-brayan therapy and antiplatelet therapy should be resumed only after GI workup rules out active bleeding and okay with surgery to resume aspirin. Patient to follow with his primary test preparation tutor Dr. Garcia as outpatient after discharge. - Time Time with patient: 15-25 minutes Medications reviewed and adjusted accordingly: Yes
[2017-12-12 15:37] LABS: HEMATOCRIT 28.7 % (37.9-51.0); HEMOGLOBIN 9.9 g/dL (13.5-17.0); MEAN CORPUSCULAR HEMOGLOBIN 33.1 pg (27.0-33.4); MEAN CORPUSCULAR HGB CONC 34.4 g/dL (32.0-36.0); MEAN CORPUSCULAR VOLUME 96 fl (80-97); PLATELET COUNT 136 10^3/uL (150-450); RED BLOOD COUNT 2.99 10^6/uL (4.35-5.55); RED CELL DISTRIBUTION WIDTH 13.4 % (11.5-14.0); WHITE BLOOD COUNT 5.8 10^3/uL (4.0-10.5)
--- NOTE | 2017-12-12 15:59 | PDOC PROGRESS REPORT ---
Subjective Progress Note for:: 12/12/17 Subjective:: The patient is an 82-year-old male with a past medical history significant for coronary artery disease with 2 stents placed in an unknown vessel approximately 10-11 years ago. Last cardiac catheterization was approximately 1 year ago and he was told that he had a 40% occluded vessel with nonobstructive disease in all vessels. Additionally, he reports hyperlipidemia, hypertension, sleep apnea , prostate cancer, GI bleed. He was admitted for a chest pain rule out. The patient is seen on morning rounds. He is resting in bed comfortably on room air having completed his breakfast. He tells me that he was pain-free overnight. He denies chest pain, palpitations, dyspnea, orthopnea. The patient did develop melena following administration of full dose Lovenox; patient reports excellently 7 bowel movements yesterday. He states that his last bowel movement was late last night. Hopeful to be discharged today stating that he has plans for tomorrow. He does understand that we need to trend his hemoglobin further and consider consultation with surgery for colonoscopy. He has no other questions or concerns at this time. Reason For Visit: CHEST PAIN Physical Exam Vital Signs: Temp Pulse Resp BP Pulse Ox 98.3 F 78 18 135/80 H 100 12/12/17 12:00 12/12/17 14:00 12/12/17 12:00 12/12/17 12:00 12/12/17 12:00 Intake & Output 12/11/17 12/12/17 12/13/17 06:59 06:59 06:59 Intake Total 325 979 Output Total 500 Balance -175 979 Weight 71.5 kg 71.3 kg General appearance: PRESENT: no acute distress, well-developed, well-nourished Head exam: PRESENT: atraumatic, normocephalic Eye exam: PRESENT: conjunctiva pink, EOMI, PERRLA. ABSENT: scleral icterus Ear exam: PRESENT: normal external ear exam Mouth exam: PRESENT: moist, tongue midline Neck exam: ABSENT: carotid bruit, JVD, lymphadenopathy, thyromegaly Respiratory exam: PRESENT: clear to auscultation saul, symmetrical, unlabored. ABSENT: rales, rhonchi, wheezes Cardiovascular exam: PRESENT: RRR, +S1, +S2. ABSENT: diastolic murmur, rubs, systolic murmur Pulses: PRESENT: normal dorsalis pedis pul Vascular exam: PRESENT: normal capillary refill GI/Abdominal exam: PRESENT: normal bowel sounds, soft. ABSENT: distended, guarding, mass, organolmegaly, rebound, tenderness Rectal exam: PRESENT: deferred, heme (+) stool Extremities exam: PRESENT: full ROM. ABSENT: calf tenderness, clubbing, pedal edema Neurological exam: PRESENT: alert, awake, oriented to person, oriented to place , oriented to time, oriented to situation, CN II-XII grossly intact. ABSENT: motor sensory deficit Psychiatric exam: PRESENT: appropriate affect, normal mood. ABSENT: homicidal ideation, suicidal ideation Skin exam: PRESENT: dry, intact, warm. ABSENT: cyanosis, rash Results Laboratory Results: 12/12/17 15:17 12/11/17 03:45 12/11/17 12/11/17 12/12/17 15:37 16:35 06:20 WBC 5.0 5.7 RBC 3.60 L 2.95 L Hgb 11.7 L 9.7 L Hct 34.4 L 27.8 L MCV 95 94 MCH 32.4 33.0 MCHC 33.9 35.0 RDW 13.4 13.5 Plt Count 159 144 L Stool Occult Blood POSITIVE 12/12/17 15:17 WBC 5.8 RBC 2.99 L Hgb 9.9 L Hct 28.7 L MCV 96 MCH 33.1 MCHC 34.4 RDW 13.4 Plt Count 136 L Stool Occult Blood 12/10/17 12/10/17 12/11/17 14:59 19:20 01:12 CK-MB (CK-2) 0.33 0.33 0.30 Troponin I < 0.012 < 0.012 < 0.012 Impressions: Chest X-Ray 12/10/17 09:25 IMPRESSION: NO ACUTE RADIOGRAPHIC FINDING IN THE CHEST. Assessment & Plan - Diagnosis (1) Chest pain Qualifiers: Ischemic chest pain type: unspecified angina pectoris type Is this a current diagnosis for this admission?: Yes Plan: The patient known history of coronary artery disease with nonobstructive disease per cardiac cath 1 year ago. He reportedly had one vessel that was at least 40% occluded. He states that he did not have stenting at that time. He does have symptoms concerning for cardiac chest pain. He was admitted under observational status on continuous cardiac telemetry. Serial troponins overnight were reassuring. Echocardiogram demonstrated LVEF with mild to moderate diastolic dysfunction. There is borderline ventricular hypertrophy. Stress test showed no definitive area of transient perfusion. There is a mild fixed defect noted in the mid inferior wall indicative of a mild scar. Cardiology has been consulted. He is on daily aspirin and atorvastatin 80 mg daily. He is on Cardura 4 mg daily, losartan 100 mg daily, metoprolol XL 12.5 mg daily. (2) GI bleed Is this a current diagnosis for this admission?: Yes Plan: The patient was initially placed on full dose Lovenox for chest pain and subsequently developed bloody stools. He reports at least 7 bowel movements described as dark red. He does have a history of GI bleed in the past that was determined to be related to a polyp. He states that his last colonoscopy was 4 years ago at that time he has had no bleeding since then. Hemoccult is positive. Lovenox is discontinued. Hemoglobin was trended down from admission of 11.3-9.7. This afternoon, hemoglobin appears to have stabilized at 9.9. Cardiology has met with the patient and cleared him for potential EGD/ colonoscopy. Surgery has been consulted; appreciate their evaluation and assistance in managing this patient. (3) Bradycardia Is this a current diagnosis for this admission?: Yes Plan: The patient reports that he is always bradycardia and is asymptomatic. The patient is noted to have an increased heart rate; occasionally tachycardic to 102 overnight. This may be in relation to his GI bleed as referenced above. We will continue to monitor closely. He on continuous cardiac telemetry. (4) HTN (hypertension) Qualifiers: Hypertension type: essential hypertension Qualified Code(s): I10 - Essential (primary) hypertension Is this a current diagnosis for this admission?: Yes Plan: Remains elevated. Continue myocarditis. Continues Toprol-XL; this was started after atenolol was discontinued. Cardiology has been consulted; appreciate their evaluation recommendations. (5) History of lower GI bleeding Is this a current diagnosis for this admission?: Yes Plan: The patient had a bleeding polyp approximately 4 years ago that was cauterized by general surgery during a colonoscopy. He has had no further episodes of bleeding since that time. Originally, the patient developed melena following full dose Lovenox. Lovenox has been discontinued. See plan as above. (6) Sleep apnea Is this a current diagnosis for this admission?: Yes Plan: CPAP nightly (7) CAD (coronary artery disease) Qualifiers: Coronary Disease-Associated Artery/Lesion type: [place] artery [place] vs. transplanted heart: [place] heart Associated angina: with stable angina Qualified Code(s): I25.118 - Atherosclerotic heart disease of [place] coronary artery with other forms of angina pectoris Is this a current diagnosis for this admission?: Yes Plan: As above. (8) GERD (gastroesophageal reflux disease) Qualifiers: Esophagitis presence: without esophagitis Qualified Code(s): K21.9 - Gastro -esophageal reflux disease without esophagitis Is this a current diagnosis for this admission?: Yes Plan: Continue PPI (9) History of atrial fibrillation Is this a current diagnosis for this admission?: Yes Plan: Pt is on continuous cardiac telemetry. Rate controlled; on Toprol-XL. Cardiology has been consulted; appreciate their evaluation and recommendations. (10) Hyperlipidemia Qualifiers: Hyperlipidemia type: unspecified Qualified Code(s): E78.5 - Hyperlipidemia , unspecified Is this a current diagnosis for this admission?: Yes Plan: Atorvastatin 80 mg daily. - Time Time Spent with patient: 25-34 minutes Medications reviewed and adjusted accordingly: Yes - Inpatient Certification Based on my medical assessment, after consideration of the patient's comorbidities, presenting symptoms, or acuity I expect that the services needed warrant INPATIENT care.: Yes I certify that my determination is in accordance with my understanding of Medicare's requirements for reasonable and necessary INPATIENT services [42 CFR 412.3e].: Yes Medical Necessity: Need Close Monitoring Due to Risk of Patient Decompensation, Risk of Diagnosis Which Will Require Inpatient Eval/Care/Monitoring - active GI bleeding
[2017-12-12] MEDS ORDERED: PEG 3350/NA SULF,BICARB,CL/KCL 4000 ML ONE (17:05)
--- NOTE | 2017-12-12 19:51 | PDOC CONSULTATION ---
Consultation Consult Date: 12/12/17 Consult reason:: need for endoscopy History of Present Illness Admission Date/PCP: 12/10/17 13:21 CARRIE THOMAS NP Patient complains of: melanotic, maroon stools History of Present Illness: DEAN GARCIA is an 82 year old male who was in his usual state of health until he suffered chest pain, was admitted on 12/10/17, his w/u has been negative. However, on 12/12/17 he was given full dose and presented with several maroon/melanotic bowel movement. I have been consulted for EGD/ colonoscopy with biopsy He has a hx of gastric ulcer at young age and a lower GI bleeding secondary to a polyp as colonosocpy 3 years ago. Past Medical History Cardiac Medical History: Reports: Atrial Fibrillation, Coronary Artery Disease - STENTS x 2- 7 YR AGO, Hyperlipidema, Hypertension - ON MEDS Denies: Myocardial Infarction Pulmonary Medical History: Reports: Sleep Apnea Denies: Asthma, Bronchitis, Chronic Obstructive Pulmonary Disease (COPD), Pneumonia, Tuberculosis EENT Medical History: Reports: None Neurological Medical History: Denies: Hemorrhagic CVA, Ischemic CVA, Seizures Endocrine Medical History: Reports: None Renal/ Medical History: Reports: None Malignancy Medical History: Reports: Other - Recently diagnosed with prostate cancer GI Medical History: Reports: Gastroesophageal Reflux Disease, Other - Lower GI bleeding 2 years ago due to a polyp GI History Note: Gastric ulcer at young age Musculoskeltal Medical History: Reports: Arthritis - BACK, KNEES, NECK, WRISTS Skin Medical History: Reports: None Psychiatric Medical History: Reports: Post Traumatic Stress Disorder Hematology: Denies: Anemia Infectious Medical History: Reports: None Past Surgical History Past Surgical History: Reports: Cardiac Catheterization - 2 stents, Coronary Stent - x 2, Herniorrhaphy - BILATERAL INGUINAL, Other - colonosocpy 3 yeara ago Denies: Pacemaker Social History Lives with: Spouse/Significant other Smoking Status: Former Smoker Frequency of Alcohol Use: None Hx Recreational Drug Use: No Drugs: None Hx Prescription Drug Abuse: No - Advance Directive Resuscitation Status: Full Code Family History Family History: CAD, DM, Hypertension, Malignancy Parental Family History Reviewed: No Children Family History Reviewed: No Sibling(s) Family History Reviewed.: No Medication/Allergy Home Medications: Aspirin [Adult Low Dose Aspirin EC] 81 mg PO DAILY 12/10/17 Atenolol [Tenormin] 25 mg PO DAILY 12/10/17 Atorvastatin Calcium [Lipitor 20 mg Tablet] 20 mg PO QHS 12/10/17 Dexlansoprazole [Dexilant 60 mg Capsule] 60 mg PO DAILY 12/10/17 Doxazosin Mesylate [Cardura 4 mg Tablet] 4 mg PO DAILY 12/10/17 Fluticasone/Vilanterol [Breo Ellipta 100-25 Mcg INH] 1 puff IH DAILY 12/10/17 Montelukast Sodium [Singulair 10 mg Tablet] 10 mg PO QHS 12/10/17 Ranitidine HCl [Zantac 150 mg Tablet] 150 mg PO DAILY 12/10/17 Telmisartan [Micardis 80 mg Tablet] 80 mg PO DAILY 12/10/17 Allergies/Adverse Reactions: Sulfa (Sulfonamide Antibiotics) Allergy (Mild, Verified 12/10/17 09:28) Hives Physical Exam Vital Signs: Temp Pulse Resp BP Pulse Ox 97.9 F 73 16 115/55 L 100 12/12/17 16:00 12/12/17 16:00 12/12/17 16:00 12/12/17 16:00 12/12/17 16:00 Intake & Output 12/11/17 12/12/17 12/13/17 06:59 06:59 06:59 Intake Total 495 809 3226 Output Total 500 Balance -421 478 6273 Weight 71.5 kg 71.3 kg Results Laboratory Results: 12/12/17 15:17 12/11/17 03:45 12/12/17 12/12/17 06:20 15:17 WBC 5.7 5.8 RBC 2.95 L 2.99 L Hgb 9.7 L 9.9 L Hct 27.8 L 28.7 L MCV 94 96 MCH 33.0 33.1 MCHC 35.0 34.4 RDW 13.5 13.4 Plt Count 144 L 136 L 12/10/17 12/10/17 12/11/17 14:59 19:20 01:12 CK-MB (CK-2) 0.33 0.33 0.30 Troponin I < 0.012 < 0.012 < 0.012 Impressions: Chest X-Ray 12/10/17 09:25 IMPRESSION: NO ACUTE RADIOGRAPHIC FINDING IN THE CHEST. Assessment & Plan - Diagnosis (1) Melena Is this a current diagnosis for this admission?: Yes - Plan Summary Plan Summary: A/ Gastrointestinal bleeding after Lovenox, unknown source Bleeding occurred after administration of full dose Lovenox Patient cleared by cardiology for endoscopy P/ due to the unknown source of bleeding, I ma recommending EGD and colonosocpy with biopsy tomorrow Bowel prep tonight Consent Procedure, risks, benefits explained to the patient, he understands and decides to proceed
[2017-12-12] MEDS ORDERED: BISACODYL 5 MG TABEC PO ONE (21:00)
[2017-12-12] MEDS: NORMAL SALINE 1000 ML 1,000 ML IV PRN (21:16)
[2017-12-13] MEDS: NITROGLYCERIN 2% OINTMENT 1 GM PACKET TP SCH ×2 (04:02→10:57)
[2017-12-13] MEDS: LANSOPRAZOLE 30 MG TAB.RAP.DR PO SCH (04:55)
[2017-12-13 04:56] LABS: HEMATOCRIT 28.2 % (37.9-51.0); HEMOGLOBIN 9.8 g/dL (13.5-17.0); MEAN CORPUSCULAR HEMOGLOBIN 32.9 pg (27.0-33.4); MEAN CORPUSCULAR HGB CONC 34.8 g/dL (32.0-36.0); MEAN CORPUSCULAR VOLUME 95 fl (80-97); PLATELET COUNT 153 10^3/uL (150-450); RED BLOOD COUNT 2.98 10^6/uL (4.35-5.55); RED CELL DISTRIBUTION WIDTH 13.4 % (11.5-14.0); WHITE BLOOD COUNT 6.7 10^3/uL (4.0-10.5)
[2017-12-13 05:18] LABS: ANION GAP 7 (5-19); BLOOD UREA NITROGEN 17 mg/dL (7-20); CALCIUM 8.4 mg/dL (8.4-10.2); CARBON DIOXIDE 27 mmol/L (22-30); CHLORIDE 106 mmol/L (98-107); GLUCOSE 98 mg/dL (75-110); SODIUM 140.3 mmol/L (137-145)
[2017-12-13] MEDS: NORMAL SALINE 1000 ML 1,000 ML IV PRN ×2 (06:28→19:44)
[2017-12-13] MEDS ORDERED: ONDANSETRON HCL INJ/PF 4 MG/2 ML SDV ONE (08:11)
[2017-12-13] MEDS ORDERED: GLYCOPYRROLATE INJ 0.4 MG/2 ML VIAL ONE (08:12)
[2017-12-13] MEDS ORDERED: FENTANYL CITRATE INJ/PF 100 MCG/2 ML AMPUL ONE (08:12)
[2017-12-13] MEDS ORDERED: NALOXONE HCL INJ/PF 0.4 MG/1 ML SDV ONE (08:12)
[2017-12-13] MEDS ORDERED: EPINEPHRINE INJ 1 MG/10 ML DISP.SYRIN ONE (08:13)
[2017-12-13] MEDS ORDERED: FLUMAZENIL INJ 0.5 MG/5 ML VIAL ONE (08:13)
[2017-12-13] MEDS ORDERED: GLUCAGON,HUMAN RECOMB 1 MG INJ ONE (08:13)
[2017-12-13] MEDS: MIDAZOLAM 2 MG/2 ML INJ ONE ×2 (08:48→08:55)
--- NOTE | 2017-12-13 09:46 | Operative Report ---
Nonrecallable Operative Report DATE OF SURGERY: 12/13/17 PREOPERATIVE DIAGNOSIS: gastrointestinal bleeding. hematochetia POSTOPERATIVE DIAGNOSIS: same. actively bleeding sigmod diverticuli 15 to 25 cm from anal verge OPERATION: EGD. Colonoscopy to cecum. Moderate IV sedation SURGEON: SIMA SCHWARTZ ANESTHESIA: Moderate Sedation - administered by Dr. Schwartz (50 mcg of Phentanyl ; 2.5 mg of Versed) TISSUE REMOVED OR ALTERED: none COMPLICATIONS: none ESTIMATED BLOOD LOSS: none INTRAOPERATIVE FINDINGS: Negative EGD. actively bleeding sigmoid diverticuli located between 15 and 25 cm from anal verge PROCEDURE: See dictation EGD Colonoscopy to cecum
--- NOTE | 2017-12-13 10:09 | OPERATIVE REPORT E ---
Operative Report NAME: DEAN GARCIA : 1935 AGE: 82Y DATE OF SURGERY:12/13/2017 ROOM: 529 PREOPERATIVE DIAGNOSIS: Gastrointestinal bleeding. POSTOPERATIVE DIAGNOSIS: Sigmoid diverticulosis, bleeding, 15-20 cm from the anal verge. PROCEDURES: 1. EGD. 2. Colonoscopy to cecum. COMPLICATIONS: None. SURGEON: SIMA SCHWARTZ M.D. SOFTWARE QUALITY ANALYST: None. ANESTHESIA: IV sedation provided by Dr. Schwartz, 50 mcg of fentanyl and 2.5 mg of Versed. INDICATION AND FINDINGS: This is an 82-year-old male, who presented to our hospital with chest pain. His cardiac workup was negative. The patient was given a full dose of Lovenox 2 days ago, which resulted in severe gastrointestinal bleeding with hematochezia mixed with maroon stools. I was consulted to performed EGD and colonoscopy to identify the source of the bleeding. DESCRIPTION OF PROCEDURE: The patient was brought to the procedure room. The patient was placed in the lateral decubitus position. Anesthesia provided as above. The gastroscope was inserted through the mouth. The esophagus, stomach, duodenum preparation was good. Food bezoar was noted in the stomach; however, no masses, polyps, strictures, mucosal changes, ulcerations were noted. The gastroscope was removed slowly and the esophagus appeared to be normal. The scope was removed. The colonoscopy was then performed by inserting the colonoscope into the rectum and up to the cecum. Preparation was good. No masses, polyps, masses or ulcerations were noted. However, at the level of the sigmoid from 25 to 15 cm from the anal verge, multiple bleeding diverticula were noted. Pictures were obtained. Attempt to retroflex the instrument in the rectum was unsuccessful. At this point, the scope was withdrawn. The patient tolerated the procedure well and transferred to recovery room in satisfactory condition. DICTATING PHYSICIAN: SIMA SCHWARTZ M.D. [id number] PHY#: [id number] ID: [id number] JOB#: [id number] ACCT: [id number] cc:SIMA SCHWARTZ M.D. > [facility]
[2017-12-13] MEDS: DOXAZOSIN MESYLATE 4 MG TABLET PO SCH (10:54)
[2017-12-13] MEDS: MULTIVITAMIN TABLET PO SCH (10:55)
[2017-12-13] MEDS: LOSARTAN POTASSIUM 50 MG TABLET PO SCH (10:55)
[2017-12-13] MEDS: METOPROLOL SUCCINATE 25 MG TAB.SR.24H PO SCH (10:56)
[2017-12-13] MEDS: FAMOTIDINE 20 MG TABLET PO SCH (10:57)
--- NOTE | 2017-12-13 11:38 | PDOC PROGRESS REPORT ---
Subjective Progress Note for:: 12/13/17 Subjective:: The patient is an 82-year-old male with a past medical history significant for coronary artery disease with 2 stents placed in an unknown vessel approximately 10-11 years ago. Last cardiac catheterization was approximately 1 year ago and he was told that he had a 40% occluded vessel with nonobstructive disease in all vessels. Additionally, he reports hyperlipidemia, hypertension, sleep apnea , prostate cancer, GI bleed. He was admitted for a chest pain rule out and subsequently developed GI bleeding while on full dose lovenox. The patient is seen on morning rounds with his present. He is resting in bed comfortably on room air. He has just returned to his room following EGD and colonoscopy by Dr. Mcneil here actively bleeding sigmoid diverticuli were identified. The patient states that he is feeling fine at the moment. He denies chest pain , palpitations, dyspnea, orthopnea, abdominal pain, nausea vomiting. He appreciates the thorough evaluation and having an explanation for the GI bleeding. He is hopeful that he will be stable for discharge early tomorrow morning. They have no other questions or concerns at this time. Reason For Visit: CHEST PAIN Physical Exam Vital Signs: Temp Pulse Resp BP Pulse Ox 97.6 F 80 13 108/45 L 100 12/13/17 08:29 12/13/17 09:40 12/13/17 09:40 12/13/17 09:40 12/13/17 09:40 Intake & Output 12/12/17 12/13/17 12/14/17 06:59 06:59 06:59 Intake Total 979 2530 350 Balance 979 2530 350 Weight 71.3 kg 70.9 kg General appearance: PRESENT: no acute distress, well-developed, well-nourished Head exam: PRESENT: atraumatic, normocephalic Eye exam: PRESENT: conjunctiva pink, EOMI, PERRLA. ABSENT: scleral icterus Ear exam: PRESENT: normal external ear exam Mouth exam: PRESENT: moist, tongue midline Neck exam: ABSENT: carotid bruit, JVD, lymphadenopathy, thyromegaly Respiratory exam: PRESENT: clear to auscultation saul, symmetrical, unlabored. ABSENT: rales, rhonchi, wheezes Cardiovascular exam: PRESENT: RRR, +S1, +S2. ABSENT: diastolic murmur, rubs, systolic murmur Pulses: PRESENT: normal dorsalis pedis pul Vascular exam: PRESENT: normal capillary refill GI/Abdominal exam: PRESENT: normal bowel sounds, soft. ABSENT: distended, guarding, mass, organolmegaly, rebound, tenderness Rectal exam: PRESENT: deferred Extremities exam: PRESENT: full ROM. ABSENT: calf tenderness, clubbing, pedal edema Neurological exam: PRESENT: alert, awake, oriented to person, oriented to place , oriented to time, oriented to situation, CN II-XII grossly intact. ABSENT: motor sensory deficit Psychiatric exam: PRESENT: appropriate affect, normal mood. ABSENT: homicidal ideation, suicidal ideation Skin exam: PRESENT: dry, intact, warm. ABSENT: cyanosis, rash Results Laboratory Results: 12/13/17 03:46 12/13/17 03:46 12/12/17 12/13/17 12/13/17 15:17 03:46 03:46 WBC 5.8 6.7 RBC 2.99 L 2.98 L Hgb 9.9 L 9.8 L Hct 28.7 L 28.2 L MCV 96 95 MCH 33.1 32.9 MCHC 34.4 34.8 RDW 13.4 13.4 Plt Count 136 L 153 Sodium 140.3 Potassium 4.0 Chloride 106 Carbon Dioxide 27 Anion Gap 7 BUN 17 Creatinine 0.85 Est GFR ( Amer) > 60 Est GFR (Non-Af Amer) > 60 Glucose 98 Calcium 8.4 12/10/17 12/10/17 12/11/17 14:59 19:20 01:12 CK-MB (CK-2) 0.33 0.33 0.30 Troponin I < 0.012 < 0.012 < 0.012 Impressions: Chest X-Ray 12/10/17 09:25 IMPRESSION: NO ACUTE RADIOGRAPHIC FINDING IN THE CHEST. Assessment & Plan - Diagnosis (1) Chest pain Qualifiers: Ischemic chest pain type: unspecified angina pectoris type Is this a current diagnosis for this admission?: Yes Plan: The patient known history of coronary artery disease with nonobstructive disease per cardiac cath 1 year ago. He reportedly had one vessel that was at least 40% occluded. He states that he did not have stenting at that time. He does have symptoms concerning for cardiac chest pain. He was admitted under observational status on continuous cardiac telemetry. Serial troponins overnight were reassuring. Echocardiogram demonstrated LVEF with mild to moderate diastolic dysfunction. There is borderline ventricular hypertrophy. Stress test showed no definitive area of transient perfusion. There is a mild fixed defect noted in the mid inferior wall indicative of a mild scar. Cardiology has been consulted. He is on daily aspirin and atorvastatin 80 mg daily. He is on Cardura 4 mg daily, losartan 100 mg daily, metoprolol XL 12.5 mg daily. (2) GI bleed Is this a current diagnosis for this admission?: Yes Plan: The patient was initially placed on full dose Lovenox for chest pain and subsequently developed bloody stools. Hemoccult is positive. Lovenox is discontinued. Hemoglobin trended down from 11.3-9.7. Hemoglobin appears to have stabilized at 9.9. Surgery was been consulted; appreciate their evaluation and assistance in managing this patient. Patient underwent EGD and colonoscopy today; active bleeding of diverticuli of the sigmoid colon were identified. Dr. Mcneil recommends holding anticoagulant therapy (patient is no longer on Lovenox), may continue aspirin. Observation overnight with trending hemoglobin. May be discharged tomorrow if tolerating a regular diet with stable hemoglobin. (3) Bradycardia Is this a current diagnosis for this admission?: Yes Plan: The patient reports that he is always bradycardia and is asymptomatic. The patient is noted to have an increased heart rate; occasionally tachycardic to 102 overnight. This may be in relation to his GI bleed as referenced above. We will continue to monitor closely. He on continuous cardiac telemetry. (4) HTN (hypertension) Qualifiers: Hypertension type: essential hypertension Qualified Code(s): I10 - Essential (primary) hypertension Is this a current diagnosis for this admission?: Yes Plan: Continue myocarditis. Continues Toprol-XL; this was started after atenolol was discontinued. Cardiology has been consulted; appreciate their evaluation recommendations. (5) Sleep apnea Is this a current diagnosis for this admission?: Yes Plan: CPAP nightly (6) CAD (coronary artery disease) Qualifiers: Coronary Disease-Associated Artery/Lesion type: [place] artery [place] vs. transplanted heart: [place] heart Associated angina: with stable angina Qualified Code(s): I25.118 - Atherosclerotic heart disease of [place] coronary artery with other forms of angina pectoris Is this a current diagnosis for this admission?: Yes Plan: As above. (7) GERD (gastroesophageal reflux disease) Qualifiers: Esophagitis presence: without esophagitis Qualified Code(s): K21.9 - Gastro -esophageal reflux disease without esophagitis Is this a current diagnosis for this admission?: Yes Plan: Continue PPI (8) History of atrial fibrillation Is this a current diagnosis for this admission?: Yes Plan: Pt is on continuous cardiac telemetry. Rate controlled; on Toprol-XL. Cardiology has been consulted; appreciate their evaluation and recommendations. (9) Hyperlipidemia Qualifiers: Hyperlipidemia type: unspecified Qualified Code(s): E78.5 - Hyperlipidemia , unspecified Is this a current diagnosis for this admission?: Yes Plan: Atorvastatin 80 mg daily. (10) History of lower GI bleeding Is this a current diagnosis for this admission?: Yes Plan: As above. - Time Time Spent with patient: 25-34 minutes Anticipated discharge: Home Within: within 24 hours
[2017-12-13 15:38] LABS: HEMATOCRIT 27.3 % (37.9-51.0); HEMOGLOBIN 9.4 g/dL (13.5-17.0); MEAN CORPUSCULAR HEMOGLOBIN 32.8 pg (27.0-33.4); MEAN CORPUSCULAR HGB CONC 34.3 g/dL (32.0-36.0); MEAN CORPUSCULAR VOLUME 96 fl (80-97); PLATELET COUNT 130 10^3/uL (150-450); RED BLOOD COUNT 2.86 10^6/uL (4.35-5.55); RED CELL DISTRIBUTION WIDTH 13.2 % (11.5-14.0); WHITE BLOOD COUNT 7.8 10^3/uL (4.0-10.5)
[2017-12-13] MEDS: MONTELUKAST SODIUM 10 MG TABLET PO SCH (21:27)
[2017-12-14] MEDS: LANSOPRAZOLE 30 MG TAB.RAP.DR PO SCH (06:15)
[2017-12-14] MEDS: NORMAL SALINE 1000 ML 1,000 ML IV PRN (06:15)
[2017-12-14 07:16] LABS: HEMATOCRIT 24.7 % (37.9-51.0); HEMOGLOBIN 8.5 g/dL (13.5-17.0); MEAN CORPUSCULAR HGB CONC 34.4 g/dL (32.0-36.0); MEAN CORPUSCULAR VOLUME 96 fl (80-97); PLATELET COUNT 135 10^3/uL (150-450); RED BLOOD COUNT 2.58 10^6/uL (4.35-5.55); RED CELL DISTRIBUTION WIDTH 13.6 % (11.5-14.0); WHITE BLOOD COUNT 6.1 10^3/uL (4.0-10.5)
[2017-12-14] MEDS ORDERED: (PENDING PHARMACY ID) (Fluticasone/Vilanterol [Breo Ellipta 100-25 Mcg Inh] 1 PUFF) IH SCH (10:00)
[2017-12-14] MEDS ORDERED: ASPIRIN 81 MG TABLET, ENT COATED PO SCH ×2 (10:00)
[2017-12-14] MEDS: METOPROLOL SUCCINATE 25 MG TAB.SR.24H PO SCH (10:20)
[2017-12-14] MEDS: DOXAZOSIN MESYLATE 4 MG TABLET PO SCH (10:20)
[2017-12-14] MEDS: MULTIVITAMIN TABLET PO SCH (10:24)
[2017-12-14] MEDS: FAMOTIDINE 20 MG TABLET PO SCH (10:25)
[2017-12-14] MEDS: LOSARTAN POTASSIUM 50 MG TABLET PO SCH (10:25)
--- NOTE | 2017-12-14 11:20 | PDOC PROGRESS REPORT ---
Subjective Progress Note for:: 12/14/17 Subjective:: Events over the weekend reviewed. Patient underwent upper GI and lower GI endoscopy for GI bleed evaluation. Patient was noted to have diverticulitis. Patient seems to be doing better. There is no recurrence of chest pain. Pt is denying any chest arm or neck discomfort. Patient denying any PND, orthopnea. Patient denied any sustained palpitations, dizziness, syncope, near syncope. Patient denying any fever chills. Patient denying any other significant discomfort. Patient is maintaining sinus rhythm. Review of systems: Rest review of systems negative. Medications: Medications have been reviewed. Reason For Visit: CHEST PAIN,GI BLEED,ANEMIA Physical Exam Vital Signs: Temp Pulse Resp BP Pulse Ox 98.1 F 64 18 149/63 H 100 12/14/17 08:06 12/14/17 08:06 12/14/17 08:06 12/14/17 08:06 12/14/17 08:06 Intake & Output 12/13/17 12/14/17 12/15/17 06:59 06:59 06:59 Intake Total 2530 3562 Balance 2530 3562 Weight 70.9 kg 70.6 kg Exam: GENERAL: well-nourished and in no acute distress. Alert and oriented x3 HEAD: Atraumatic, normocephalic. EYES: Pupils equal round and reactive to light, extraocular movements intact, sclera anicteric, conjunctiva are normal. ENT: TMs normal, nares patent, oropharynx clear without exudates. Moist mucous membranes. No oral ulcerations or bleeding gums noted NECK: supple without lymphadenopathy. Trachea is central. No cervical or axillary lymphadenopathy noted. Carotids are 2+, JVD WNL LUNGS: Respiration seems nonlabored, no significant accessory muscle action noted. Breath sounds clear to auscultation bilaterally and equal noted. No wheezes rales or rhonchi noted. No significant dullness noted on percussion. CHEST: Palpation of the chest wall shows no significant chest wall tenderness. No other significant abnormalities noted. HEART: [place] BOLT HEADER, No PSH, 1/6 KATIA aortic area, 1/6 naylor systolic murmur mitral area, no rubs, no gallops. ABDOMEN: Soft, no significant tenderness appreciated, normoactive bowel sounds. No guarding, no rebound. No rigidity noted . No masses appreciated. EXTREMITIES: Pedal pulses are 1-2+, no calf tenderness noted. No clubbing or cyanosis.trace to 1+ pedal edema noted NEUROLOGICAL: Focused neurological exam showed no significant neurologic deficit. Normal speech, no focal weakness appreciated. PSYCH: Normal mood, normal affect. Judgment and insight within normal limits. SKIN: No significant ecchymosis, skin is noted to be warm. MUSCULOSKELETAL EXAM: No significant acute joint swelling noted. Results Laboratory Results: 12/14/17 06:16 12/13/17 03:46 12/13/17 12/14/17 12/14/17 15:25 06:16 09:30 WBC 7.8 6.1 RBC 2.86 L 2.58 L Hgb 9.4 L 8.5 L Hct 27.3 L 24.7 L MCV 96 96 MCH 32.8 33.0 MCHC 34.3 34.4 RDW 13.2 13.6 Plt Count 130 L 135 L Stool Occult Blood NEGATIVE Blood Type Antibody Screen 12/14/17 09:43 WBC RBC Hgb Hct MCV MCH MCHC RDW Plt Count Stool Occult Blood Blood Type O POSITIVE Antibody Screen NEGATIVE Impressions: Chest X-Ray 12/10/17 09:25 IMPRESSION: NO ACUTE RADIOGRAPHIC FINDING IN THE CHEST. Assessment & Plan - Diagnosis (1) Chest pain Qualifiers: Ischemic chest pain type: unspecified angina pectoris type Is this a current diagnosis for this admission?: Yes (2) HTN (hypertension) Qualifiers: Hypertension type: essential hypertension Qualified Code(s): I10 - Essential (primary) hypertension Is this a current diagnosis for this admission?: Yes (3) CAD (coronary artery disease) Qualifiers: Coronary Disease-Associated Artery/Lesion type: [place] artery [place] vs. transplanted heart: [place] heart Associated angina: with stable angina Qualified Code(s): I25.118 - Atherosclerotic heart disease of [place] coronary artery with other forms of angina pectoris Is this a current diagnosis for this admission?: Yes (4) GERD (gastroesophageal reflux disease) Qualifiers: Esophagitis presence: without esophagitis Qualified Code(s): K21.9 - Gastro -esophageal reflux disease without esophagitis Is this a current diagnosis for this admission?: Yes (5) Hyperlipidemia Qualifiers: Hyperlipidemia type: unspecified Qualified Code(s): E78.5 - Hyperlipidemia , unspecified Is this a current diagnosis for this admission?: Yes (6) Diverticulosis Qualifiers: Diverticulosis bleeding: diverticulosis with bleeding Is this a current diagnosis for this admission?: Yes (7) History of lower GI bleeding Is this a current diagnosis for this admission?: Yes - Notes Notes: Chest pain: Resolved. Continue medical management of known CAD. Hypertension: Blood pressure under satisfactory control. Coronary artery disease: Symptomatically stable. Gastroesophageal reflux disease: Currently stable. Upper GI endoscopy report will be reviewed. Dyslipidemia: Continue high potency statin therapy. Diverticulosis/diverticulitis: Continue conservative management. Surgeons to decide final disposition. - Time Time Spent with patient: Patient has agreed to follow-up with me for his cardiovascular related issues. Time with patient: 15-25 minutes Medications reviewed and adjusted accordingly: Yes
--- NOTE | 2017-12-14 12:39 | PDOC PROGRESS REPORT ---
Subjective Progress Note for:: 12/14/17 Subjective:: The patient is an 82-year-old male with a past medical history significant for coronary artery disease with 2 stents placed in an unknown vessel approximately 10-11 years ago. Last cardiac catheterization was approximately 1 year ago and he was told that he had a 40% occluded vessel with nonobstructive disease in all other vessels. Additionally, he reports hyperlipidemia, hypertension, sleep apnea, prostate cancer, GI bleed. He was admitted for a chest pain rule out and subsequently developed GI bleeding while on full dose lovenox. The patient is seen on morning rounds with his present. He is resting in bed comfortably on room air. No developments overnight. The patient states that he is feeling well and desires to be discharged to home. He denies chest pain, palpitations, dyspnea, orthopnea, abdominal pain, nausea vomiting. He is informed that his Hgb dropped overnight and that it is recommended that he stay for continued observation. He is disappointed but agreeable as he has required blood transfusions in the past for GI bleeding. They have no other questions or concerns at this time. Reason For Visit: CHEST PAIN,GI BLEED,ANEMIA Physical Exam Vital Signs: Temp Pulse Resp BP Pulse Ox 98.1 F 64 18 149/63 H 100 12/14/17 08:06 12/14/17 08:06 12/14/17 08:06 12/14/17 08:06 12/14/17 08:06 Intake & Output 12/13/17 12/14/17 12/15/17 06:59 06:59 06:59 Intake Total 2530 3562 Balance 2530 3562 Weight 70.9 kg 70.6 kg General appearance: PRESENT: no acute distress, thin, well-developed, well- nourished Head exam: PRESENT: atraumatic, normocephalic Eye exam: PRESENT: conjunctiva pink, EOMI, PERRLA. ABSENT: scleral icterus Ear exam: PRESENT: normal external ear exam Mouth exam: PRESENT: moist, tongue midline Neck exam: ABSENT: carotid bruit, JVD, lymphadenopathy, thyromegaly Respiratory exam: PRESENT: clear to auscultation salu, symmetrical, unlabored. ABSENT: rales, rhonchi, wheezes Cardiovascular exam: PRESENT: RRR, +S1, +S2. ABSENT: diastolic murmur, rubs, systolic murmur Pulses: PRESENT: normal dorsalis pedis pul Vascular exam: PRESENT: normal capillary refill GI/Abdominal exam: PRESENT: normal bowel sounds, soft. ABSENT: distended, guarding, mass, organolmegaly, rebound, tenderness Rectal exam: PRESENT: deferred, heme (+) stool Extremities exam: PRESENT: full ROM. ABSENT: calf tenderness, clubbing, pedal edema Neurological exam: PRESENT: alert, awake, oriented to person, oriented to place , oriented to time, oriented to situation, CN II-XII grossly intact. ABSENT: motor sensory deficit Psychiatric exam: PRESENT: appropriate affect, normal mood. ABSENT: homicidal ideation, suicidal ideation Skin exam: PRESENT: dry, intact, warm. ABSENT: cyanosis, rash Results Laboratory Results: 12/14/17 06:16 12/13/17 03:46 12/13/17 12/14/17 12/14/17 15:25 06:16 09:30 WBC 7.8 6.1 RBC 2.86 L 2.58 L Hgb 9.4 L 8.5 L Hct 27.3 L 24.7 L MCV 96 96 MCH 32.8 33.0 MCHC 34.3 34.4 RDW 13.2 13.6 Plt Count 130 L 135 L Stool Occult Blood NEGATIVE Blood Type Antibody Screen 12/14/17 09:43 WBC RBC Hgb Hct MCV MCH MCHC RDW Plt Count Stool Occult Blood Blood Type O POSITIVE Antibody Screen NEGATIVE Impressions: Chest X-Ray 12/10/17 09:25 IMPRESSION: NO ACUTE RADIOGRAPHIC FINDING IN THE CHEST. Assessment & Plan - Diagnosis (1) Chest pain Qualifiers: Ischemic chest pain type: unspecified angina pectoris type Is this a current diagnosis for this admission?: Yes Plan: The patient has a known history of coronary artery disease with nonobstructive disease per cardiac cath 1 year ago. He reportedly had one vessel that was at least 40% occluded. He states that he did not have stenting at that time. He does have symptoms concerning for cardiac chest pain. He was admitted under observational status on continuous cardiac telemetry. Serial troponins were negative. Echocardiogram demonstrated LVEF with mild to moderate diastolic dysfunction. There is borderline ventricular hypertrophy. Stress test showed no definitive area of transient perfusion. There is a mild fixed defect noted in the mid inferior wall indicative of a mild scar. Cardiology has been consulted. Aspirin is held secondary to active GI bleeding. He is on atorvastatin 80 mg daily. He is on Cardura 4 mg daily, losartan 100 mg daily, metoprolol XL 12.5 mg daily. (2) GI bleed Is this a current diagnosis for this admission?: Yes Plan: The patient was initially placed on full dose Lovenox for chest pain and subsequently developed bloody stools. Hemoccult is positive. Lovenox was disconitued; He received a total of two doses. Hemoglobin continues to trend down; will continue to monitor closely. Type and screen in anticipation of transfusion. Surgery was been consulted; appreciate their evaluation and assistance in managing this patient. Patient underwent EGD and colonoscopy yesterday; active bleeding of diverticuli of the sigmoid colon were identified. Dr. Mcneil recommends holding anticoagulant therapy (patient is no longer on Lovenox), may continue aspirin. Aspirin was discontinued today secondary to continued Hgb drop. (3) Bradycardia Is this a current diagnosis for this admission?: Yes Plan: The patient reports that he always has bradycardia and is asymptomatic; HR stabe in mid-60s. He is on continuous cardiac telemetry. (4) HTN (hypertension) Qualifiers: Hypertension type: essential hypertension Qualified Code(s): I10 - Essential (primary) hypertension Is this a current diagnosis for this admission?: Yes Plan: Continue myocarditis. Continues Toprol-XL; this was started after atenolol was discontinued. Cardiology has been consulted; appreciate their evaluation recommendations. (5) Sleep apnea Is this a current diagnosis for this admission?: Yes Plan: CPAP nightly (6) CAD (coronary artery disease) Qualifiers: Coronary Disease-Associated Artery/Lesion type: [place] artery Kaw vs. transplanted heart: [place] heart Associated angina: with stable angina Qualified Code(s): I25.118 - Atherosclerotic heart disease of [place] coronary artery with other forms of angina pectoris Is this a current diagnosis for this admission?: Yes Plan: As above. (7) GERD (gastroesophageal reflux disease) Qualifiers: Esophagitis presence: without esophagitis Qualified Code(s): K21.9 - Gastro -esophageal reflux disease without esophagitis Is this a current diagnosis for this admission?: Yes Plan: Continue PPI (8) History of atrial fibrillation Is this a current diagnosis for this admission?: Yes Plan: Pt is on continuous cardiac telemetry. Rate controlled; on Toprol-XL. Cardiology has been consulted; appreciate their evaluation and recommendations. (9) Hyperlipidemia Qualifiers: Hyperlipidemia type: unspecified Qualified Code(s): E78.5 - Hyperlipidemia , unspecified Is this a current diagnosis for this admission?: Yes Plan: Atorvastatin 80 mg daily. (10) History of lower GI bleeding Is this a current diagnosis for this admission?: Yes Plan: Approximately 4 years ago r/t polys. Did require 2 units PRBC at that time. As above. - Time Time Spent with patient: 25-34 minutes Medications reviewed and adjusted accordingly: Yes Anticipated discharge: Home Within: Other - Stable Hgb
--- NOTE | 2017-12-14 13:10 | Physician Advisory Note ---
Physician Advisor ProgressNote .: Pursuant to the plan for [facility], I have reviewed the medical record for this patient. Physician Advisor Statement: Please consider documentin. "Anemia of Acute Blood Loss due to acute GI Bleeding due to diverticular bleed" Status: Medicare pt, appropriate for change to Inpatient status as of 12/11 due to acute onset Acute GIB/AABL requiring ongoing close monitoring & evaluation for more than 1 MN in hospital. Thanks! CK
[2017-12-14 14:32] LABS: HEMATOCRIT 26.7 % (37.9-51.0); HEMOGLOBIN 9.2 g/dL (13.5-17.0); MEAN CORPUSCULAR HEMOGLOBIN 33.5 pg (27.0-33.4); MEAN CORPUSCULAR HGB CONC 34.6 g/dL (32.0-36.0); MEAN CORPUSCULAR VOLUME 97 fl (80-97); PLATELET COUNT 144 10^3/uL (150-450); RED BLOOD COUNT 2.76 10^6/uL (4.35-5.55); RED CELL DISTRIBUTION WIDTH 13.8 % (11.5-14.0); WHITE BLOOD COUNT 5.1 10^3/uL (4.0-10.5)
--- NOTE | 2017-12-14 21:12 | PDOC PROGRESS REPORT ---
Subjective Progress Note for:: 12/14/17 Reason For Visit: CHEST PAIN,GI BLEED,ANEMIA Doing well, no complaints, tolerated clear liquids today. No further bleeding Physical Exam Vital Signs: Temp Pulse Resp BP Pulse Ox 98.3 F 82 19 128/69 H 100 12/14/17 20:00 12/14/17 20:00 12/14/17 20:00 12/14/17 20:00 12/14/17 20:00 Intake & Output 12/13/17 12/14/17 12/15/17 06:59 06:59 06:59 Intake Total 2530 3562 842 Output Total 625 Balance 2530 3562 217 Weight 70.9 kg 70.6 kg General appearance: PRESENT: no acute distress GI/Abdominal exam: PRESENT: other - Abdomen is completely benign, nontender Results Laboratory Results: 12/14/17 14:08 12/13/17 03:46 12/14/17 12/14/17 12/14/17 06:16 09:30 09:43 WBC 6.1 RBC 2.58 L Hgb 8.5 L Hct 24.7 L MCV 96 MCH 33.0 MCHC 34.4 RDW 13.6 Plt Count 135 L Stool Occult Blood NEGATIVE Blood Type O POSITIVE Antibody Screen NEGATIVE 12/14/17 14:08 WBC 5.1 RBC 2.76 L Hgb 9.2 L Hct 26.7 L MCV 97 MCH 33.5 H MCHC 34.6 RDW 13.8 Plt Count 144 L Stool Occult Blood Blood Type Antibody Screen Impressions: Chest X-Ray 12/10/17 09:25 IMPRESSION: NO ACUTE RADIOGRAPHIC FINDING IN THE CHEST. Assessment & Plan - Diagnosis (1) GI bleed Is this a current diagnosis for this admission?: Yes Plan: GI bleeding abated; likely secondary to diverticular disease Recommendations 1. Should patient no further intervention at this time 2. Suggested patient follow up with surgery on a as needed basis 3. Explained to patient that modification would not his risk of rebleeding from diverticular disease.
[2017-12-14] MEDS: ATORVASTATIN CALCIUM 80 MG TABLET PO SCH (21:57)
[2017-12-15] MEDS: MONTELUKAST SODIUM 10 MG TABLET PO SCH ×2 (00:17→22:26)
[2017-12-15 04:41] LABS: HEMATOCRIT 23.4 % (37.9-51.0); HEMOGLOBIN 8.1 g/dL (13.5-17.0); MEAN CORPUSCULAR HGB CONC 34.6 g/dL (32.0-36.0); MEAN CORPUSCULAR VOLUME 96 fl (80-97); PLATELET COUNT 124 10^3/uL (150-450); RED BLOOD COUNT 2.44 10^6/uL (4.35-5.55); RED CELL DISTRIBUTION WIDTH 13.7 % (11.5-14.0); WHITE BLOOD COUNT 5.2 10^3/uL (4.0-10.5)
[2017-12-15] MEDS: LANSOPRAZOLE 30 MG TAB.RAP.DR PO SCH (07:33)
[2017-12-15] MEDS: METOPROLOL SUCCINATE 25 MG TAB.SR.24H PO SCH (10:30)
[2017-12-15] MEDS: LOSARTAN POTASSIUM 50 MG TABLET PO SCH (10:30)
[2017-12-15] MEDS: DOXAZOSIN MESYLATE 4 MG TABLET PO SCH (10:30)
[2017-12-15] MEDS: FAMOTIDINE 20 MG TABLET PO SCH (10:31)
[2017-12-15] MEDS: MULTIVITAMIN TABLET PO SCH (10:31)
--- NOTE | 2017-12-15 16:43 | PDOC PROGRESS REPORT ---
Subjective Progress Note for:: 12/15/17 Subjective:: This patient was admitted with chest and subsequently had a stress test done which showed no definitive area of transient perfusion. There is a mild fixed inferior wall defect indicative of a mild scar. Patient was however noted to have bloody stools. He had been on full dose Lovenox which along with aspirin has since been discontinued. She denies any further episodes of bleeding. His hemoglobin however dropped from 9.2 yesterday to 8.1 today. And is anxious to go home however with his 1 points drop in hemoglobin in 24 hours of convinced him that it is best that he stays at least another day to make sure that his hemoglobin is stable and he is agreed to stay. Reason For Visit: CHEST PAIN,GI BLEED,ANEMIA Physical Exam Vital Signs: Temp Pulse Resp BP Pulse Ox 98.3 F 74 18 156/63 H 100 12/15/17 08:15 12/15/17 14:00 12/15/17 08:15 12/15/17 08:15 12/15/17 08:15 Intake & Output 12/14/17 12/15/17 12/16/17 06:59 06:59 06:59 Intake Total 3562 1197 Output Total 925 Balance 3562 272 Weight 70.6 kg 70.6 kg General appearance: PRESENT: no acute distress Head exam: PRESENT: atraumatic Ear exam: PRESENT: normal external ear exam Neck exam: ABSENT: carotid bruit, JVD, lymphadenopathy, thyromegaly Respiratory exam: PRESENT: clear to auscultation saul. ABSENT: rales, rhonchi, wheezes Cardiovascular exam: PRESENT: RRR. ABSENT: diastolic murmur, rubs, systolic murmur Pulses: PRESENT: normal dorsalis pedis pul GI/Abdominal exam: PRESENT: normal bowel sounds, soft. ABSENT: distended, guarding, mass, organolmegaly, rebound, tenderness Rectal exam: PRESENT: deferred Extremities exam: PRESENT: full ROM. ABSENT: calf tenderness, clubbing, pedal edema Neurological exam: PRESENT: alert, awake, oriented to person, oriented to place , oriented to time Psychiatric exam: PRESENT: appropriate affect, normal mood. ABSENT: homicidal ideation, suicidal ideation Results Laboratory Results: 12/15/17 04:09 12/13/17 03:46 12/15/17 04:09 WBC 5.2 RBC 2.44 L Hgb 8.1 L Hct 23.4 L MCV 96 MCH 33.0 MCHC 34.6 RDW 13.7 Plt Count 124 L Impressions: Chest X-Ray 12/10/17 09:25 IMPRESSION: NO ACUTE RADIOGRAPHIC FINDING IN THE CHEST. Assessment & Plan - Time Time Spent with patient: 15-24 minutes Medications reviewed and adjusted accordingly: Yes Anticipated discharge: Home Within: within 24 hours - Plan Summary Plan Summary: 1.GI bleed likely secondary to Lovenox. He did undergo an EGD and colonoscopy with active bleeding of diverticuli noted. Aspirin is currently on hold. If his hemoglobin is stable tomorrow he likely can be discharged home. He has not been transfused 2. Chest pain in a patient with history of coronary artery disease with the stress test mentioned above 3. Hypertension currently on Toprol-XL. 4. Sleep apnea currently on nocturnal CPAP 5.Stable coronary artery disease no acute intervention needed 6.Gastroesophageal reflux disease currently on PPI 7.History of atrial fibrillation rate controlled on Toprol-XL with his GI bleed. There is no indication for anticoagulation 8. Dyslipidemia, chronic
[2017-12-15] MEDS: ATORVASTATIN CALCIUM 80 MG TABLET PO SCH (22:25)
[2017-12-16 04:06] LABS: HEMATOCRIT 25.1 % (37.9-51.0); HEMOGLOBIN 8.6 g/dL (13.5-17.0); MEAN CORPUSCULAR HEMOGLOBIN 32.8 pg (27.0-33.4); MEAN CORPUSCULAR HGB CONC 34.2 g/dL (32.0-36.0); MEAN CORPUSCULAR VOLUME 96 fl (80-97); PLATELET COUNT 144 10^3/uL (150-450); RED BLOOD COUNT 2.62 10^6/uL (4.35-5.55); RED CELL DISTRIBUTION WIDTH 13.7 % (11.5-14.0); WHITE BLOOD COUNT 5.7 10^3/uL (4.0-10.5)
[2017-12-16 04:23] LABS: ANION GAP 6 (5-19); BLOOD UREA NITROGEN 16 mg/dL (7-20); CALCIUM 8.7 mg/dL (8.4-10.2); CARBON DIOXIDE 31 mmol/L (22-30); CHLORIDE 104 mmol/L (98-107); GLUCOSE 106 mg/dL (75-110); POTASSIUM 4.2 mmol/L (3.6-5.0); SODIUM 140.6 mmol/L (137-145)
[2017-12-16] MEDS: LANSOPRAZOLE 30 MG TAB.RAP.DR PO SCH (07:47)
[2017-12-16] MEDS: DOXAZOSIN MESYLATE 4 MG TABLET PO SCH (09:07)
[2017-12-16] MEDS: MULTIVITAMIN TABLET PO SCH (09:08)
[2017-12-16] MEDS: METOPROLOL SUCCINATE 25 MG TAB.SR.24H PO SCH (09:08)
[2017-12-16] MEDS: FAMOTIDINE 20 MG TABLET PO SCH (09:08)
[2017-12-16] MEDS: LOSARTAN POTASSIUM 50 MG TABLET PO SCH (09:08)
[2017-12-16 15:57] VITALS: BP 137/64
--- NOTE | 2017-12-25 14:26 | PDOC DISCHARGE SUMMARY ---
General - Admit/Disc Date/PCP Admission Date/Primary Care Provider: 12/12/17 16:30 CARRIE THOMAS NP Discharge Date: 12/16/17 - Discharge Diagnosis (1) Chest pain Is this a current diagnosis for this admission?: Yes Summary: The patient has a known history of coronary artery disease with nonobstructive disease per cardiac cath 1 year ago. He reportedly had one vessel that was at least 40% occluded. He states that he did not have stenting at that time. He does have symptoms concerning for cardiac chest pain. He was admitted under observational status on continuous cardiac telemetry. Serial troponins were negative. Echocardiogram demonstrated LVEF with mild to moderate diastolic dysfunction. There is borderline ventricular hypertrophy. Stress test showed no definitive area of transient perfusion. There is a mild fixed defect noted in the mid inferior wall indicative of a mild scar. Cardiology consulted. Patient was initially started on full dose lovenox but developed a GI bleed. Aspirin is held secondary to active GI bleeding. He is on atorvastatin 80 mg daily, continue post discharge. He is on Cardura 4 mg daily, losartan 100 mg daily, metoprolol XL 12.5 mg daily , continue post discharge. (2) GI bleed Is this a current diagnosis for this admission?: Yes Summary: The patient was initially placed on full dose Lovenox for chest pain and subsequently developed bloody stools. Hemoccult is positive. Lovenox was disconitued; He received a total of two doses. Hemoglobin continues to trend down but stabilized. Patient never required transfusion Patient underwent EGD and colonoscopy; active bleeding of diverticuli of the sigmoid colon were identified. Dr. Mcneil recommends holding anticoagulant therapy. Lovenox and ASA were discontinued. Patient has a hx of GI bleed 4 years ago secondary to polyps. Patient required 2U PRBC transfusion. (3) Bradycardia Is this a current diagnosis for this admission?: Yes Summary: Admitted on continuous telemetry. Patient reports he is always bradycardic. Asymptomatic. HR stable in the mid-60s. (4) CAD (coronary artery disease) Is this a current diagnosis for this admission?: Yes Summary: Micardis and Toprol XL (5) GERD (gastroesophageal reflux disease) Is this a current diagnosis for this admission?: Yes Summary: Treated with PPI while inpatient. Prescribed prevacid upon discharge. (6) History of atrial fibrillation Is this a current diagnosis for this admission?: Yes Summary: Rate controlled on Toprol XL. Hold anticoagulation due to recent GI bleed, continue to hold following discharge. Plan to resume ASA in 2 weeks post discharge (7) Hyperlipidemia Is this a current diagnosis for this admission?: Yes Summary: Atorvastatin 80mg daily. Continue post discharge - Additional Information Resuscitation Status: Full Code Discharge Diet: Cardiac Discharge Activity: Activity As Tolerated Prescriptions: Atorvastatin Calcium 80 mg PO DAILY #10 tablet Metoprolol Succinate [Toprol Xl 25 mg Tab.sr] 12.5 mg PO DAILY #30 tab.sr.24h Nitroglycerin [Nitrostat 0.4 mg (1/150 Gr) Tabs 25/Bottle] 1 tab SL ASDIR PRN # 1 bottle PRN Reason: Home Medications: Aspirin [Adult Low Dose Aspirin EC] 81 mg PO DAILY 12/10/17 Atenolol [Tenormin] 25 mg PO DAILY 12/10/17 Atorvastatin Calcium [Lipitor 20 mg Tablet] 20 mg PO QHS 12/10/17 Dexlansoprazole [Dexilant 60 mg Capsule] 60 mg PO DAILY 12/10/17 Doxazosin Mesylate [Cardura 4 mg Tablet] 4 mg PO DAILY 12/10/17 Fluticasone/Vilanterol [Breo Ellipta 100-25 Mcg INH] 1 puff IH DAILY 12/10/17 Ranitidine HCl [Zantac 150 mg Tablet] 150 mg PO DAILY 12/10/17 Telmisartan [Micardis 80 mg Tablet] 80 mg PO DAILY 12/10/17 Fluticasone/Vilanterol [Breo Ellipta 100-25 Mcg INH] 1 puff IH DAILY 12/14/17 Atorvastatin Calcium 80 mg PO DAILY #10 tablet 12/16/17 Atorvastatin Calcium [Lipitor 80 mg Tablet] 80 mg PO QHS tablet 12/16/17 Lansoprazole [Prevacid 30 mg Odt Tablet] 30 mg PO Q6AM tab.rap.dr 12/16/17 Metoprolol Succinate [Toprol Xl 25 mg Tab.sr] 12.5 mg PO DAILY #30 tab.sr.24h Nitroglycerin [Nitrostat 0.4 mg (1/150 Gr) Tabs 25/Bottle] 1 tab SL ASDIR PRN # 1 bottle 12/16/17 History of Present Illness Patient complains of: chest pain History of Present Illness: DEAN GARCIA is an 82 year old male who was in his usual state of health until yesterday. His past medical history is significant for coronary artery disease and he had 2 stents placed in an unknown vessel 10-11 years ago. Last year he had a cardiac catheterization and was told that 1 of his vessels was 40 % occluded and that he had nonobstructing disease in his other vessels. In any event the patient was sitting at his computer working yesterday and he developed a substernal chest pain. At first it was quite mild but then it worsened and radiated up his chest and towards the right neck. He had some mild nausea associated with this. There was nothing that made it worse or better. It was just a constant pain. He went to bed last night and was able to go to sleep but got up this morning and the pain quickly returned. He tried some sublingual nitroglycerin and a nitroglycerin patch at home without too much relief. He states these medications were quite old. When he arrived in the emergency room his chest pain did relieve resolved with nitroglycerin. Currently he is quite comfortable. Hospital Course Hospital Course: as above Physical Exam Vital Signs: Temp Pulse Resp BP Pulse Ox 97.8 F 73 16 137/64 H 100 12/16/17 16:46 12/16/17 16:46 12/16/17 16:46 12/16/17 16:46 12/16/17 16:46 General appearance: PRESENT: no acute distress, well-developed, well-nourished Head exam: PRESENT: atraumatic, normocephalic Eye exam: PRESENT: conjunctiva pink, EOMI, PERRLA. ABSENT: scleral icterus Ear exam: PRESENT: normal external ear exam Mouth exam: PRESENT: moist, tongue midline Neck exam: ABSENT: carotid bruit, JVD, lymphadenopathy, thyromegaly Respiratory exam: PRESENT: clear to auscultation saul. ABSENT: rales, rhonchi, wheezes Cardiovascular exam: PRESENT: RRR. ABSENT: diastolic murmur, rubs, systolic murmur Pulses: PRESENT: normal radial pulses, normal dorsalis pedis pul Vascular exam: PRESENT: normal capillary refill GI/Abdominal exam: PRESENT: normal bowel sounds, soft. ABSENT: distended, guarding, mass, organolmegaly, rebound, tenderness Rectal exam: PRESENT: deferred Extremities exam: PRESENT: full ROM. ABSENT: calf tenderness, clubbing, pedal edema Neurological exam: PRESENT: alert, awake, oriented to person, oriented to place , oriented to time, oriented to situation Psychiatric exam: PRESENT: appropriate affect, normal mood Skin exam: PRESENT: dry, intact, warm. ABSENT: cyanosis, rash Results Laboratory Results: 12/16/17 03:50 12/16/17 03:50 Impressions: Chest X-Ray 12/10/17 09:25 IMPRESSION: NO ACUTE RADIOGRAPHIC FINDING IN THE CHEST. Status: Imported from PACS Qualifiers - * [facility] BEING DISCHARGED WITH ANY OF THE FOLLOWING DIAGNOSIS?: No Plan Discharge Plan: Discharge home, currently holding aspirin therapy. Can resume in 2 weeks. Switched from atenolol to Toprol XL for HR and BP control. Close follow up with cardiology recommended. Patient states understanding. Time Spent: Less than 30 Minutes
== END 2017-12-16 18:54 | disposition home or self-care (01) | DRG 379 ==
LOC: ER 09:11 → EH 13:21 → 5 15:13 → OBSVTOIN 12-12 16:30
PROVIDERS: ADMIT Family Medicine; ATTEND Family Medicine
PROC: 5A09357 Assistance with Respiratory Ventilation, Less than 24 Consecutive Hours, Continuous Positive Airway Pressure (ICD-10-PCS; 2017-12-10)
PROC: 0DJ08ZZ Inspection of Upper Intestinal Tract, Via Natural or Artificial Opening Endoscopic (ICD-10-PCS; principal; 2017-12-13 08:30)
PROC: 0DJD8ZZ Inspection of Lower Intestinal Tract, Via Natural or Artificial Opening Endoscopic (ICD-10-PCS; 2017-12-13 08:30)
DX: K57.31 Diverticulosis of large intestine without perforation or abscess with bleeding (principal); K92.0 Hematemesis; K92.1 Melena; I48.91 Unspecified atrial fibrillation; C61 Malignant neoplasm of prostate; J44.9 Chronic obstructive pulmonary disease, unspecified; E78.00 Pure hypercholesterolemia, unspecified; I10 Essential (primary) hypertension; G47.30 Sleep apnea, unspecified; K21.9 Gastro-esophageal reflux disease without esophagitis; M17.0 Bilateral primary osteoarthritis of knee; M47.9 Spondylosis, unspecified; M19.032 Primary osteoarthritis, left wrist; M19.031 Primary osteoarthritis, right wrist; F43.10 Post-traumatic stress disorder, unspecified; I25.118 Atherosclerotic heart disease of native coronary artery with other forms of angina pectoris; R00.1 Bradycardia, unspecified; N40.0 Benign prostatic hyperplasia without lower urinary tract symptoms; T45.515A Adverse effect of anticoagulants, initial encounter; I44.0 Atrioventricular block, first degree; Z95.1 Presence of aortocoronary bypass graft; Z86.010 Personal history of colon polyps; Z95.5 Presence of coronary angioplasty implant and graft; Z79.899 Other long term (current) drug therapy; Z88.2 Allergy status to sulfonamides; Z87.891 Personal history of nicotine dependence; Z82.49 Family history of ischemic heart disease and other diseases of the circulatory system; Z83.3 Family history of diabetes mellitus; Z80.9 Family history of malignant neoplasm, unspecified
CPT/HCPCS: 36415; 43235; 45378; 71045; 78452; 80048; 80053; 80061; 81001; 82272; 82550; 82553; 84100; 84484; 85025; 85027; 86850; 86900; 86901; 93005; 93010; 93017; 93306; 99285; A9500; G0378; J0171; J0280; J1610; J1650; J2250; J2310; J2405; J2785; J3010; J3490; J7030; Q9969

== ENCOUNTER → 2018-05-10 | Outpatient (CLI) | payer MEDICARE, OTHER ==
--- NOTE | 2018-05-10 16:00 | RADIOLOGY REPORT (SQ) ---
EXAM DESCRIPTION: NM WHOLE BODY BONE SCAN COMPLETED DATE/TIME: 05/10/2018 2:37 pm REASON FOR STUDY: OTHER NONSPECIFIC ABNORMAL FINDING OF LUNG FIELD C61 MALIGNANT NEOPLASM OF PROSTA TE COMPARISON: 07/25/2015 RADIONUCLIDE AND DOSE: 21.2 millicuries Tc99m MDP. The route of agent administration: Intravenous. ADDITIONAL DRUGS AND DOSES: None. TECHNIQUE: Routine delayed images at 3 hour post radionuclide injection acquired of the bony skeleto n including anterior and posterior whole-body projections and additional focused images as needed. LIMITATIONS: None. FINDINGS: BONES: Symmetric uptake in the knees, shoulders, sternoclavicular joints consistent with d egenerative change. Stable mild increased uptake in the lumbar spine. KIDNEYS: Symmetric excretion without obstruction. OTHER: No other significant finding. IMPRESSION: Degenerative change. COMMENT: Quality measure 147: Current bone scan is compared with any available plain radiographs, p rior bone scans, and CT/MRI. TECHNICAL DOCUMENTATION: JOB ID: [id number] [employer]- All Rights Reserved Reading location - IP/workstation name: [email or web address]
== END ==
LOC: RAD 10:18
PROVIDERS: ATTEND Radiology Radiation Oncology
DX: C61 Malignant neoplasm of prostate (principal)
CPT/HCPCS: 78306; A9561; Q9969

== ENCOUNTER → 2018-07-20 | Outpatient (CLI) | payer MEDICARE, OTHER | LOC: OD 11:02 | PROVIDERS: ATTEND Radiology Radiation Oncology | DX: C61 Malignant neoplasm of prostate (principal); R97.20 Elevated prostate specific antigen [PSA] | CPT/HCPCS: 36415; 84153 ==

== ENCOUNTER 2018-09-29 10:51 | Observation (INO) | payer MEDICARE, OTHER ==
--- NOTE | 2018-09-29 11:27 | ER Document Report ---
ED Medical Screen (RME) - General Chief Complaint: Chest Pain > 30 Stated Complaint: CHEST PAIN, SHORTNESS OF BREATH Time Seen by Provider: 09/29/18 11:22 Mode of Arrival: Ambulatory Information source: Patient, Relative, [facility] Records Notes: 83-year-old male with hypertension, hyperlipidemia, atrial fibrillation, coronary artery disease requiring stent placements presents with complaint of ch est pain that started 3 weeks prior to arrival with radiation to his back that started 1 week prior to arrival. Patient states he has had associated nausea, sweating. I have greeted and performed a rapid initial assessment of this patient. A comprehensive ED assessment and evaluation of the patient, analysis of test results and completion of medical decision making process we will be contacted by additional ED providers. PHYSICAL EXAMINATION: Vital signs reviewed-hypertensive GENERAL: Well-appearing, well-nourished and in no acute distress. LUNGS: No respiratory distress Musculoskeletal: Normal range of motion NEUROLOGICAL: Normal speech, normal gait. PSYCH: Normal mood, normal affect. SKIN: Warm, Dry, normal turgor, no rashes or lesions noted. TRAVEL OUTSIDE OF THE [place] IN LAST 30 DAYS: No - HPI Onset: Other Onset/Duration: Intermittent Quality of pain: Achy, Pressure Severity: Mild Associated Symptoms: Chest pain, Nausea, Sweating Exacerbated by: Movement, Walking Relieved by: Remaining still Similar symptoms previously: Yes Recently seen / treated by doctor: No - Related Data Smoking: Non-smoker Frequency of alcohol use: None Drug Abuse: None Allergies/Adverse Reactions: Sulfa (Sulfonamide Antibiotics) Allergy (Mild, Verified 09/29/18 10:52) Hives Past Medical History - Past Medical History Cardiac Medical History: Reports: Hx Atrial Fibrillation, Hx Coronary Artery Disease - STENTS x 2- 7 YR AGO, Hx Hypercholesterolemia, Hx Hypertension - ON MEDS Denies: Hx Heart Attack Pulmonary Medical History: Reports: Hx Sleep Apnea Denies: Hx Asthma, Hx Bronchitis, Hx COPD, Hx Pneumonia, Hx Tuberculosis Neurological Medical History: Denies: Hx Cerebrovascular Accident, Hx Seizures Renal/ Medical History: Reports: Hx Benign Prostatic Hyperplasia. Denies: Hx Peritoneal Dialysis GI Medical History: Reports: Hx Gastroesophageal Reflux Disease Musculoskeltal Medical History: Reports Hx Arthritis - BACK, KNEES, NECK, WRISTS Psychiatric Medical History: Reports: Hx Post Traumatic Stress Disorder Past Surgical History: Reports: Hx Cardiac Catheterization - 2 stents, Hx Coronary Stent - x 2, Hx Herniorrhaphy - BILATERAL INGUINAL, Hx Inguinal Hernia, Other - colonosocpy 3 yeara ago. Denies: Hx Pacemaker - Immunizations Hx Diphtheria, Pertussis, Tetanus Vaccination: No History of Influenza Vaccine for 06/2017 - 11/2017 Season: Yes Influenza Administration Date for 06/2017 - 11/2017 Season: 07/29/17 Physical Exam - Vital signs Vitals: Temp Pulse Resp BP Pulse Ox 97.6 F 55 L 16 168/61 H 100 09/29/18 11:07 09/29/18 11:07 09/29/18 11:07 09/29/18 11:07 09/29/18 11:07 Course - Vital Signs Vital signs: Temp Pulse Resp BP Pulse Ox 97.6 F 55 L 16 168/61 H 100 09/29/18 11:07 09/29/18 11:07 09/29/18 11:07 09/29/18 11:07 09/29/18 11:07 Doctor's Discharge - Discharge Referrals: KIMI GRANT, [Primary Care Provider] - Follow up as needed
[2018-09-29] MEDS ORDERED: ASPIRIN 81 MG TABLET, CHEWABLE PO ONE (12:47)
[2018-09-29 12:57] LABS: ABSOLUTE EOSINOPHILS # (AUTO) 0.1 10^3/uL (0.0-0.6); ABSOLUTE LYMPHOCYTES (AUTO) 0.7 10^3/uL (0.5-4.7); ABSOLUTE MONOCYTES (AUTO) 0.4 10^3/uL (0.1-1.4); ABSOLUTE NEUT (AUTO) 2.4 10^3/uL (1.7-8.2); EOSINOPHILS % (AUTO) 2.8 % (0-6); HEMATOCRIT 36.7 % (37.9-51.0); HEMOGLOBIN 12.7 g/dL (13.5-17.0); LYMPHOCYTES % (AUTO) 19.6 % (13-45); MEAN CORPUSCULAR HEMOGLOBIN 33.3 pg (27.0-33.4); MEAN CORPUSCULAR HGB CONC 34.5 g/dL (32.0-36.0); MEAN CORPUSCULAR VOLUME 97 fl (80-97); MONOCYTES % (AUTO) 12.1 % (3-13); PLATELET COUNT 165 10^3/uL (150-450); RED CELL DISTRIBUTION WIDTH 13.7 % (11.5-14.0); SEGMENTED NEUTROPHILS % (AUTO) 64.5 % (42-78); TOTAL CELLS COUNTED % (AUTO) 100 %; WHITE BLOOD COUNT 3.7 10^3/uL (4.0-10.5)
[2018-09-29 13:03] LABS: ALANINE AMINOTRANSFERASE 44 U/L (21-72); ALBUMIN 4.1 g/dL (3.5-5.0); ALKALINE PHOSPHATASE 67 U/L (38-126); ANION GAP 6 (5-19); ASPARTATE AMINO TRANSFERASE 34 U/L (17-59); BILIRUBIN,DIRECT 0.2 mg/dL (0.0-0.4); BILIRUBIN,TOTAL 0.5 mg/dL (0.2-1.3); BLOOD UREA NITROGEN 21 mg/dL (7-20); CALCIUM 8.9 mg/dL (8.4-10.2); CARBON DIOXIDE 30 mmol/L (22-30); CHLORIDE 106 mmol/L (98-107); CREATINE KINASE 73 U/L (55-170); GLUCOSE 90 mg/dL (75-110); POTASSIUM 4.5 mmol/L (3.6-5.0); SODIUM 141.6 mmol/L (137-145); TOTAL PROTEIN 7.5 g/dL (6.3-8.2)
[2018-09-29 13:16] LABS: CREATINE KINASE MB 0.34 ng/mL (<4.55)
[2018-09-29 13:18] LABS: TROPONIN I < 0.012 ng/mL
--- NOTE | 2018-09-29 13:19 | RADIOLOGY REPORT (SQ) ---
EXAM DESCRIPTION: CHEST SINGLE VIEW COMPLETED DATE/TIME: 09/29/2018 1:09 pm REASON FOR STUDY: chest pain, sob COMPARISON: None. NUMBER OF VIEWS: One view. TECHNIQUE: Single frontal radiographic view of the chest acquired. LIMITATIONS: None. FINDINGS: LUNGS AND PLEURA: No opacities, masses or pneumothorax. No pleural effusion. MEDIASTINUM AND HILAR STRUCTURES: No masses. Contour normal. HEART AND VASCULAR STRUCTURES: Heart normal in size. Normal vasculature. BONES: No acute findings. HARDWARE: None in the chest. OTHER: No other significant finding. IMPRESSION: NO SIGNIFICANT RADIOGRAPHIC FINDING IN THE CHEST. TECHNICAL DOCUMENTATION: JOB ID: [id number] [employer]- All Rights Reserved Reading location - IP/workstation name: [email or web address]
--- NOTE | 2018-09-29 13:36 | ER Document Report ---
ED Cardiac - General Chief Complaint: Chest Pain > 30 Stated Complaint: CHEST PAIN, SHORTNESS OF BREATH Time Seen by Provider: 09/29/18 11:22 Mode of Arrival: Ambulatory Information source: Patient Notes: Patient is an 83-year-old male who presents with chief complaint of intermittent chest pain that radiates to his back. He reports this is been ongoing for the last 3-4 weeks. He reports associated shortness of breath, nausea and diaphoresis. He currently denies any chest pain. He denies any alleviating or exacerbating factors. He reports past medical history of hypertension, hyperl ipidemia, atrial fibrillation and coronary artery disease. He apparently has multiple stent placements. TRAVEL OUTSIDE OF THE [place] IN LAST 30 DAYS: No - Related Data Allergies/Adverse Reactions: Sulfa (Sulfonamide Antibiotics) Allergy (Mild, Verified 09/29/18 10:52) Hives Past Medical History - General Information source: Patient, Relative, [facility] Records - Social History Smoking Status: Former Smoker Chew tobacco use (# tins/day): No Frequency of alcohol use: None Drug Abuse: None Family History: CAD, DM, Hypertension, Malignancy Patient has suicidal ideation: No Patient has homicidal ideation: No - Past Medical History Cardiac Medical History: Reports: Hx Atrial Fibrillation, Hx Coronary Artery Disease - STENTS x 2- 7 YR AGO, Hx Hypercholesterolemia, Hx Hypertension - ON MEDS Denies: Hx Heart Attack Pulmonary Medical History: Reports: Hx Sleep Apnea Denies: Hx Asthma, Hx Bronchitis, Hx COPD, Hx Pneumonia, Hx Tuberculosis Neurological Medical History: Denies: Hx Cerebrovascular Accident, Hx Seizures Renal/ Medical History: Reports: Hx Benign Prostatic Hyperplasia. Denies: Hx Peritoneal Dialysis GI Medical History: Reports: Hx Gastroesophageal Reflux Disease Musculoskeletal Medical History: Reports Hx Arthritis - BACK, KNEES, NECK, WRISTS Psychiatric Medical History: Reports: Hx Post Traumatic Stress Disorder Past Surgical History: Reports: Hx Bowel Surgery - hernia repair, Hx Cardiac Catheterization - 2 stents, Hx Coronary Stent - x 2, Hx Herniorrhaphy - BILATERAL INGUINAL, Hx Inguinal Hernia, Other - colonosocpy 3 yeara ago. D enies: Hx Pacemaker - Immunizations Hx Diphtheria, Pertussis, Tetanus Vaccination: No Hx Pneumococcal Vaccination: 07/29/13 Review of Systems - Review of Systems Constitutional: Diaphoresis EENT: No symptoms reported Cardiovascular: Chest pain Respiratory: Short of breath Gastrointestinal: Nausea Genitourinary: No symptoms reported Male Genitourinary: No symptoms reported Musculoskeletal: No symptoms reported Skin: No symptoms reported Hematologic/Lymphatic: No symptoms reported Neurological/Psychological: No symptoms reported Physical Exam - Vital signs Vitals: Temp Pulse Resp BP Pulse Ox 97.6 F 55 L 16 168/61 H 100 09/29/18 11:07 09/29/18 11:07 09/29/18 11:07 09/29/18 11:07 09/29/18 11:07 - Notes Notes: PHYSICAL EXAMINATION: GENERAL: Well-appearing, well-nourished and in no acute distress. HEAD: Atraumatic, normocephalic. EYES: Pupils equal round and reactive to light, extraocular movements intact, sclera anicteric, conjunctiva are normal. ENT: Nares patent, oropharynx clear without exudates. Moist mucous membranes. NECK: Normal range of motion, supple without lymphadenopathy LUNGS: Breath sounds clear to auscultation bilaterally and equal. No wheezes rales or rhonchi. HEART: Regular rate and rhythm without murmurs ABDOMEN: Soft, nontender, nondistended abdomen. No guarding, no rebound. No masses appreciated. Musculoskeletal: Normal range of motion, no pitting or edema. No cyanosis. NEUROLOGICAL: Cranial nerves grossly intact. Normal speech. Normal sensory, motor exams PSYCH: Normal mood, normal affect. SKIN: Warm, Dry, normal turgor, no rashes or lesions noted. Course - Re-evaluation Re-evalutation: Patient chest pain-free at the time of my assessment. Physical examination is unremarkable. Heart sounds S1-S2 present with no ectopy noted. Lung sounds clear to auscultation bilaterally. No peripheral edema noted. CBC and CMP are unremarkable. Troponin is negative. Chest x-ray is unremarkable with no infiltrates or pneumothorax. EKG shows a sinus rhythm, rate of 53, QTC 376, no ST elevations, T wave changes noted in V3 and V4 in comparison with previous EKG from 12/11/17. Patient reports he sees Dr. Cory Garcia, grievance coordinator in [place]. He reports his next appointment is on 10/29/18. He does report that he had a normal stress test done in December however he does report that he has had multiple stents placed in the past. 09/29/18 14:15 Called and spoke with hospitalist, Dr. Jimenez she who agrees to admit the patient. - Vital Signs Vital signs: Temp Pulse Resp BP Pulse Ox 97.6 F 55 L 16 168/61 H 98 09/29/18 11:07 09/29/18 11:07 09/29/18 11:07 09/29/18 11:07 09/29/18 12:47 - Laboratory Result Diagrams: 09/29/18 12:26 09/29/18 12:26 Laboratory results interpreted by me: 09/29/18 09/29/18 12:26 12:26 WBC 3.7 L RBC 3.80 L Hgb 12.7 L Hct 36.7 L BUN 21 H Discharge - Discharge Clinical Impression: Chest pain Qualifiers: Chest pain type: unspecified Qualified Code(s): R07.9 - Chest pain, unspecified Condition: Stable Disposition: HOME, SELF-CARE Admitting Provider: Hospitalist Unit Admitted: Telemetry Referrals: KIMI GRANT DO [ACTIVE STAFF] - Follow up as needed
[2018-09-29] MEDS ORDERED: ACETAMINOPHEN 325 MG TABLET PO PRN (16:02)
[2018-09-29] MEDS ORDERED: ONDANSETRON 4 MG TAB.RAPDIS PO PRN (16:02)
[2018-09-29] MEDS ORDERED: NITROGLYCERIN 0.4 MG/TAB 25 TAB/BOTTLE SL PRN (16:08)
--- NOTE | 2018-09-29 17:24 | EKG REPORT ---
SEVERITY:- ABNORMAL ECG - SINUS RHYTHM NONSPECIFIC T ABNORMALITIES, ANT-LAT LEADS : Confirmed by: Kaya Garcia MD 29-Sep-2018 17:23:29
[2018-09-29] MEDS: ENOXAPARIN SODIUM INJ 40 MG/0.4 ML DISP.SYRIN SUBCUT SCH (17:43)
[2018-09-29] MEDS ORDERED: ISOSORBIDE MONONITRATE 30 MG TAB.ER.24H PO SCH (18:00)
[2018-09-29] MEDS ORDERED: HYDRALAZINE HCL INJ/PF 20 MG/1 ML SDV IV PRN (18:00)
[2018-09-29] MEDS ORDERED: LOSARTAN POTASSIUM 50 MG TABLET PO ONE (18:00)
--- NOTE | 2018-09-29 19:10 | PDOC H&P ---
History of Present Illness Admission Date/PCP: 09/29/18 14:59 NEIL THOMAS MD Patient complains of: Chest pain History of Present Illness: DEAN GARCIA is a 83 year old male with history of coronary artery disease. He has had 2 stents placed. The first approximately 9 years ago and the second approximately 8 years ago. He was evaluated at [facility] in November. At that time he had a normal stress test. He presents with intermittent chest discomfort and pressure occurring sporadically over the last 2-3 weeks. It is not specifically associated with exertion. It would resolve on its own. He only took nitroglycerin twice. He was able to walk through some of the episodes. It was not specifically related to exertion. He did exh ibit/experience radiation from his chest to his back and shoulder. His stock preparer is Dr. Garcia at [facility]. The inverted T waves seen on today's electric cardiogram were noted in the stress test report in November. Past Medical History Cardiac Medical History: Reports: Atrial Fibrillation, Coronary Artery Disease - STENTS x 2- 7 YR AGO, Hyperlipidema, Hypertension - ON MEDS Denies: Myocardial Infarction Pulmonary Medical History: Reports: Sleep Apnea Denies: Asthma, Bronchitis, Chronic Obstructive Pulmonary Disease (COPD), Pneumonia, Tuberculosis Neurological Medical History: Denies: Seizures Malignancy Medical History: Reports: Other - Prostate cancer GI Medical History: Reports: Gastroesophageal Reflux Disease Musculoskeltal Medical History: Reports: Arthritis - BACK, KNEES, NECK, WRISTS Psychiatric Medical History: Reports: Post Traumatic Stress Disorder Hematology: Denies: Anemia Past Surgical History Past Surgical History: Reports: Cardiac Catheterization - 2 stents, Coronary Stent - x 2, Herniorrhaphy - BILATERAL INGUINAL, Other - colonosocpy 3 yeara ago Denies: Pacemaker Social History Lives with: Family Smoking Status: Never Smoker Frequency of Alcohol Use: None Hx Recreational Drug Use: No Drugs: None Hx Prescription Drug Abuse: No - Advance Directive Resuscitation Status: Full Code Family History Family History: CAD, DM, Hypertension, Malignancy Parental Family History Reviewed: Yes Children Family History Reviewed: Yes Sibling(s) Family History Reviewed.: Yes Medication/Allergy Home Medications: Aspirin [Adult Low Dose Aspirin EC] 81 mg PO DAILY 12/10/17 Atenolol [Tenormin] 25 mg PO DAILY 12/10/17 Atorvastatin Calcium [Lipitor 20 mg Tablet] 20 mg PO QHS 12/10/17 Dexlansoprazole [Dexilant 60 mg Capsule] 60 mg PO DAILY 12/10/17 Doxazosin Mesylate [Cardura 4 mg Tablet] 4 mg PO DAILY 12/10/17 Fluticasone/Vilanterol [Breo Ellipta 100-25 Mcg INH] 1 puff IH DAILY 12/10/17 Ranitidine HCl [Zantac 150 mg Tablet] 150 mg PO DAILY 12/10/17 Telmisartan [Micardis 80 mg Tablet] 80 mg PO DAILY 12/10/17 Fluticasone/Vilanterol [Breo Ellipta 100-25 Mcg INH] 1 puff IH DAILY 12/14/17 Atorvastatin Calcium 80 mg PO DAILY #10 tablet 12/16/17 Atorvastatin Calcium [Lipitor 80 mg Tablet] 80 mg PO QHS tablet 12/16/17 Lansoprazole [Prevacid 30 mg Odt Tablet] 30 mg PO Q6AM tab.rap.dr 12/16/17 Metoprolol Succinate [Toprol Xl 25 mg Tab.sr] 12.5 mg PO DAILY #30 tab.sr.24h 12/16/17 Nitroglycerin [Nitrostat 0.4 mg (1/150 Gr) Tabs 25/Bottle] 1 tab SL ASDIR PRN #1 bottle 12/16/17 Allergies/Adverse Reactions: Sulfa (Sulfonamide Antibiotics) Allergy (Mild, Verified 09/29/18 10:52) Hives Review of Systems Constitutional: PRESENT: as per HPI Eyes: ABSENT: visual disturbances Ears: ABSENT: hearing changes Nose, Mouth, and Throat: ABSENT: mouth pain, sore throat Cardiovascular: PRESENT: chest pain, dyspnea on exertion - Intermittent. ABSENT: edema, orthropnea, palpitations Gastrointestinal: PRESENT: heartburn. ABSENT: constipation, diarrhea, nausea, vomiting Genitourinary: ABSENT: dysuria, hematuria Integumentary: ABSENT: lesions, pruritus, rash Neurological: ABSENT: confusion, memory loss, syncope, tingling, tremor(s) Psychiatric: ABSENT: anxiety, depression Endocrine: ABSENT: cold intolerance, heat intolerance Hematologic/Lymphatic: ABSENT: easy bruising, lymphadenopathy Allergic/Immunologic: ABSENT: seasonal rhinorrhea Physical Exam Vital Signs: Temp Pulse Resp BP Pulse Ox 97.4 F 47 L 16 176/73 H 100 09/29/18 17:03 09/29/18 17:03 09/29/18 17:03 09/29/18 17:03 09/29/18 17:03 Intake & Output 09/28/18 09/29/18 09/30/18 06:59 06:59 06:59 Weight 67 kg General appearance: PRESENT: no acute distress, cooperative, well-developed Head exam: PRESENT: normocephalic Eye exam: PRESENT: conjunctiva pink, EOMI. ABSENT: scleral icterus Ear exam: PRESENT: normal external ear exam Mouth exam: PRESENT: moist, tongue midline Neck exam: ABSENT: carotid bruit, JVD, lymphadenopathy Respiratory exam: PRESENT: clear to auscultation saul, symmetrical, unlabored. ABSENT: rales, rhonchi, wheezes Cardiovascular exam: PRESENT: RRR, +S1, +S2 GI/Abdominal exam: PRESENT: normal bowel sounds, soft. ABSENT: distended, tenderness Rectal exam: PRESENT: deferred Extremities exam: ABSENT: pedal edema Musculoskeletal exam: PRESENT: normal inspection Neurological exam: PRESENT: alert, awake, oriented to person, oriented to place, oriented to time, oriented to situation, CN II-XII grossly intact Psychiatric exam: PRESENT: appropriate affect, normal mood. ABSENT: agitated, anxious Focused psych exam: ABSENT: restlessness Results Laboratory Results: 09/29/18 12:26 09/29/18 12:26 09/29/18 09/29/18 12:26 12:26 WBC 3.7 L RBC 3.80 L Hgb 12.7 L Hct 36.7 L MCV 97 MCH 33.3 MCHC 34.5 RDW 13.7 Plt Count 165 Seg Neutrophils % 64.5 Lymphocytes % 19.6 Monocytes % 12.1 Eosinophils % 2.8 Basophils % 1.0 Absolute Neutrophils 2.4 Absolute Lymphocytes 0.7 Absolute Monocytes 0.4 Absolute Eosinophils 0.1 Absolute Basophils 0.0 Sodium 141.6 Potassium 4.5 Chloride 106 Carbon Dioxide 30 Anion Gap 6 BUN 21 H Creatinine 1.06 Est GFR ( Amer) > 60 Est GFR (Non-Af Amer) > 60 Glucose 90 Calcium 8.9 Total Bilirubin 0.5 AST 34 ALT 44 Alkaline Phosphatase 67 Total Protein 7.5 Albumin 4.1 09/29/18 09/29/18 12:26 12:26 Creatine Kinase 73 CK-MB (CK-2) 0.34 Troponin I < 0.012 Impressions: Chest X-Ray 09/29/18 12:47 IMPRESSION: NO SIGNIFICANT RADIOGRAPHIC FINDING IN THE CHEST. Assessment & Plan - Diagnosis (1) Chest pain Qualifiers: Chest pain type: precordial pain Qualified Code(s): R07.2 - Precordial pain Is this a current diagnosis for this admission?: Yes Plan: The patient does have history of coronary artery disease with stents. He will be admitted for serial cardiac enzymes. In light of the negative stress test in November of this year and similar EKG findings it is highly unlikely that the patient will rule in for infarct. If the serial enzymes are negative the patient will discharge and follow-up with his stock preparer as already scheduled. (2) CAD (coronary artery disease) Qualifiers: Coronary Disease-Associated Artery/Lesion type: [place] artery [place] vs. transplanted heart: [place] heart Associated angina: with stable angina Qualified Code(s): I25.118 - Atherosclerotic heart disease of [place] coronary artery with other forms of angina pectoris Is this a current diagnosis for this admission?: Yes Plan: History of 2 stents. Continue aspirin, statin and antihypertensives. (3) HTN (hypertension) Qualifiers: Hypertension type: essential hypertension Qualified Code(s): I10 - E ssential (primary) hypertension Is this a current diagnosis for this admission?: Yes Plan: The patient will require some medication substitution. As needed medication will also be available for hypertension. - Time Time Spent: 50 to 70 Minutes Medications reviewed and adjusted accordingly: Yes Anticipated discharge: Home
[2018-09-29 19:12] LABS: CREATINE KINASE MB 0.36 ng/mL (<4.55)
[2018-09-29 19:13] LABS: TROPONIN I < 0.012 ng/mL
[2018-09-29] MEDS ORDERED: ATORVASTATIN CALCIUM 80 MG TABLET PO SCH (22:00)
[2018-09-29] MEDS: FAMOTIDINE 20 MG TABLET PO SCH (22:23)
[2018-09-30 01:03] LABS: CREATINE KINASE MB 0.25 ng/mL (<4.55)
[2018-09-30 01:05] LABS: TROPONIN I < 0.012 ng/mL
[2018-09-30 08:26] LABS: CREATINE KINASE MB 0.24 ng/mL (<4.55)
[2018-09-30 08:31] LABS: TROPONIN I < 0.012 ng/mL
[2018-09-30] MEDS ORDERED: DOXAZOSIN MESYLATE 4 MG TABLET PO SCH (10:00)
[2018-09-30] MEDS ORDERED: LOSARTAN POTASSIUM 50 MG TABLET PO SCH (10:00)
[2018-09-30] MEDS ORDERED: ASPIRIN 81 MG TABLET, ENT COATED PO SCH (10:00)
[2018-09-30] MEDS ORDERED: (PENDING PHARMACY ID) (Atenolol [Tenormin] 25 MG) PO SCH (10:00)
[2018-09-30] MEDS ORDERED: (PENDING PHARMACY ID) (Telmisartan [Micardis 80 Mg Tablet] 80 MG) PO SCH (10:00)
[2018-09-30] MEDS ORDERED: REGADENOSON INJ 0.4 MG/5 ML DISP.SYRIN IV ONE (11:36)
[2018-09-30] MEDS: ATENOLOL 50 MG TABLET PO SCH ×2 (11:36→11:45)
[2018-09-30] MEDS: FAMOTIDINE 20 MG TABLET PO SCH (11:37)
[2018-09-30] MEDS: ENOXAPARIN SODIUM INJ 40 MG/0.4 ML DISP.SYRIN SUBCUT SCH (11:44)
--- NOTE | 2018-09-30 13:40 | EKG REPORT ---
SEVERITY:- ABNORMAL ECG - SINUS RHYTHM NONSPECIFIC T ABNORMALITIES, ANT-LAT LEADS : Confirmed by: Kaya Garcia MD 30-Sep-2018 13:38:50
[2018-09-30 17:27] VITALS: BP 137/64
--- NOTE | 2018-09-30 18:52 | PDOC DISCHARGE SUMMARY ---
General - Admit/Disc Date/PCP Admission Date/Primary Care Provider: 09/29/18 14:[address] Radha MONROE finished cigar maker Discharge Date: 09/30/18 - Discharge Diagnosis (1) Chest pain Is this a current diagnosis for this admission?: Yes Summary: The patient had a negative stress test in November. This certainly was an atypical presentation since he was able to exercise through his discomfort. He did have a stress test today. Dr. Garcia interpreted the chest. He feels that there is a small apical area of reversible ischemia. He had fact called the patient's finished cigar maker (Dr. Garcia). The patient was supposed to see Dr. Garcia in 4 weeks but he will now call the patient to see him earlier. All 3 of his troponins were less than 0.012. (2) CAD (coronary artery disease) Is this a current diagnosis for this admission?: Yes Summary: History of 2 stents. Stress test as above. Continue angiotensin receptor brayan and beta-brayan therapy. He is also on aspirin and atorvastatin. (3) HTN (hypertension) Is this a current diagnosis for this admission?: Yes Summary: Blood pressure is reasonably controlled on above regimen. Continue same. I will defer changes to Dr. Gacria. (4) Prostate cancer Is this a current diagnosis for this admission?: Yes Summary: Continue doxazosin for obstructive uropathy symptoms - Additional Information Resuscitation Status: Full Code Discharge Diet: Cardiac Discharge Activity: Activity As Tolerated, Balance Activity w/Rest Home Medications: Aspirin [Adult Low Dose Aspirin EC] 81 mg PO DAILY 12/10/17 Atenolol [Tenormin] 25 mg PO DAILY 12/10/17 Dexlansoprazole [Dexilant 60 mg Capsule] 60 mg PO DAILY 12/10/17 Doxazosin Mesylate [Cardura 4 mg Tablet] 4 mg PO DAILY 12/10/17 Fluticasone/Vilanterol [Breo Ellipta 100-25 Mcg INH] 1 puff IH DAILY 12/10/17 Ranitidine HCl [Zantac 150 mg Tablet] 150 mg PO DAILY 12/10/17 Telmisartan [Micardis 80 mg Tablet] 80 mg PO DAILY 12/10/17 Atorvastatin Calcium 80 mg PO DAILY #10 tablet 12/16/17 Atorvastatin Calcium [Lipitor 80 mg Tablet] 80 mg PO QHS tablet 12/16/17 Nitroglycerin [Nitrostat 0.4 mg (1/150 Gr) Tabs 25/Bottle] 1 tab SL ASDIR PRN #1 bottle 12/16/17 History of Present Illness Patient complains of: Chest pain History of Present Illness: Please also see dictated history and physical. The patient has been having atypical chest discomfort for 3-4 weeks. It started in the left chest. Occasionally would radiate to the back. It did not radiate to the arm or jaw. He reports no diaphoresis or palpitations. It would occur occasionally when walking. He would continue to walk and the discomfort would dissipate. He has 2 coronary artery stents. He does have a follow-up with his finished cigar maker in October. He had a negative stress test in November of this year. The patient was admitted for his chest pain. He will have serial troponins and a repeat stress test. Hospital Course Hospital Course: The patient had benign hospital course. He stated that he did not experience any chest pain. Therapeutic substitutions were made for his antihypertensives. The stress test showed a small apical area of possible reversible ischemia. Cardiology called the patient's finished cigar maker and reviewed the findings. The finished cigar maker will call the patient and move his appointment forward so that he sees them before October. Physical Exam Vital Signs: Temp Pulse Resp BP Pulse Ox 97.7 F 72 15 137/64 H 99 09/30/18 17:23 09/30/18 17:23 09/30/18 17:23 09/30/18 16:15 09/30/18 17:23 Intake & Output 09/29/18 09/30/18 10/01/18 06:59 06:59 06:59 Intake Total 266 236 Balance 266 236 Weight 63.6 kg General appearance: PRESENT: no acute distress, thin, well-developed Head exam: PRESENT: normocephalic Mouth exam: PRESENT: moist, tongue midline Respiratory exam: PRESENT: clear to auscultation saul, symmetrical, unlabored. ABSENT: prolonged expiratory phas, rales, rhonchi, wheezes Cardiovascular exam: PRESENT: RRR, +S1, +S2 GI/Abdominal exam: PRESENT: normal bowel sounds, soft. ABSENT: distended, tenderness Extremities exam: ABSENT: pedal edema Musculoskeletal exam: PRESENT: ambulatory Neurological exam: PRESENT: alert, awake, oriented to person, oriented to place, oriented to time, oriented to situation, CN II-XII grossly intact Psychiatric exam: PRESENT: appropriate affect, normal mood. ABSENT: agitated, anxious Focused psych exam: ABSENT: restlessness Results Laboratory Results: 09/29/18 12:26 09/29/18 12:26 09/29/18 09/29/18 09/29/18 12:26 12:26 18:35 Creatine Kinase 73 87 CK-MB (CK-2) 0.34 Troponin I < 0.012 09/29/18 09/30/18 09/30/18 18:35 00:27 00:27 Creatine Kinase 62 CK-MB (CK-2) 0.36 0.25 Troponin I < 0.012 < 0.012 09/30/18 09/30/18 07:30 07:30 Creatine Kinase 55 CK-MB (CK-2) 0.24 Troponin I < 0.012 Impressions: Chest X-Ray 09/29/18 12:47 IMPRESSION: NO SIGNIFICANT RADIOGRAPHIC FINDING IN THE CHEST. Qualifiers - * PATIENT BEING DISCHARGED WITH ANY OF THE FOLLOWING DIAGNOSIS: No Plan Discharge Plan: As above. The patient was chest pain free at the time of discharge. Time Spent: Greater than 30 Minutes
--- NOTE | 2018-09-30 23:35 | DRAGON STRESS TEST REPORT ---
Intravenous Lexiscan Cardiolite stress test using single photon emmision computerized tomography. Date of procedure: 09/30/2018. Ordering Provider: Dr. White. Patient's status: In Patient Indication: Chest pain in a patient with a history of coronary artery disease, and history of LAD stent in the past.. Coronary risk factors Age, hypertension, dyslipidemia, and family history of coronary artery disease.: Resting EKG: Sinus Rhythm. T inversion in the anterior leads. Stress EKG:[ No changes of ischemia. The patient had no chest pain or discomfort, and there were no arrhythmias seen. Reason for termination: Protocol. Conclusions: Normal EKG and hemodynamic response to IV Lexiscan. Nuclear data: At rest the patient was given 10.59 millicuries of technetium 99m sestamibi injected intravenously. As per protocol rest non gated SPECT images were obtained. Subsequently the patient was given intravenous Lexiscan at a dose of 0.4 mg in 5 mL intravenously, followed by flush with normal saline. Subsequently the stress dose of 32.6 millicuries of technetium 99m sestamibi was injected intravenously. As per protocol stress gated images were obtained. Nuclear interpretation: Review of images showed that there is a perfusion defect involving a small area of the left ventricular apex which is more pronounced than the stress images compared to the rest images. This area also has decreased motion contraction and thickening by gated study. The rest of the segments of the myocardium had normal perfusion at rest, and normal perfusion post stress with IV Lexiscan. The rest of the segments of the myocardium had normal motion, contraction, and thickening by gated study. T. I D. ratio was normal at 1.13. There is no transient ischemic calcification of the left ventricle. Computer read rest, and stress left ventricular ejection fraction were 52 %, and 50 %, respectively. Conclusion: 1. There is minimal scintigraphic evidence of Lexiscan induced myocardial ischemia in the area of scar/NC of her smile area in the left frontal apex. 2. There is scintigraphic evidence of myocardial infarction/scar of a small area in the left ventricle apex. RECOMMENDATION: 1. Maximize medical therapy aimed at coronary artery disease including beta- blockers, statins, nitrates, and aspirin if no contraindication. 2. Discussed with the hospitalist taking care of the patient, and also discussed with Dr. Cory Garcia, the patient's residential carpenter in [facility]. He will see the patient as soon as possible, in his office and make a determination as to further course of treatment/management plans. 3. Continue aggressive risk factor modification. GHULAM
== END 2018-09-30 18:00 | disposition home or self-care (01) ==
LOC: ER 10:51 → INTOOBSV 14:59 → EH 14:59 → 4W 16:52
PROVIDERS: ADMIT Hospitalist; ATTEND Hospitalist
DX: R07.89 Other chest pain (principal); I25.118 Atherosclerotic heart disease of native coronary artery with other forms of angina pectoris; I10 Essential (primary) hypertension; C61 Malignant neoplasm of prostate; M13.88 Other specified arthritis, other site; R12 Heartburn; R11.2 Nausea with vomiting, unspecified; R61 Generalized hyperhidrosis; K21.9 Gastro-esophageal reflux disease without esophagitis; R06.00 Dyspnea, unspecified; G47.30 Sleep apnea, unspecified; Z79.82 Long term (current) use of aspirin; I48.91 Unspecified atrial fibrillation; Z79.899 Other long term (current) drug therapy; Z98.890 Other specified postprocedural states; Z95.5 Presence of coronary angioplasty implant and graft; Z82.49 Family history of ischemic heart disease and other diseases of the circulatory system; Z87.891 Personal history of nicotine dependence
CPT/HCPCS: 93005 ×2; 99285; 36415 ×2; 82553 ×2; 82550 ×2; 85025; 80053; 84484 ×2; 93017; 71045; 78452; 93010 ×2; 94660 ×2; A9500; J2785; A9270 ×8; J3490 ×2; Q9969

== ENCOUNTER 2019-10-14 16:26 | Emergency (ER) | payer MEDICARE, OTHER ==
[2019-10-14 19:26] LABS: ABSOLUTE BASOPHILS # (AUTO) 0.1 10^3/uL (0.0-0.2); ABSOLUTE EOSINOPHILS # (AUTO) 0.1 10^3/uL (0.0-0.6); ABSOLUTE LYMPHOCYTES (AUTO) 1.2 10^3/uL (0.5-4.7); ABSOLUTE MONOCYTES (AUTO) 0.5 10^3/uL (0.1-1.4); ABSOLUTE NEUT (AUTO) 2.6 10^3/uL (1.7-8.2); BASOPHILS % (AUTO) 1.2 % (0-2); EOSINOPHILS % (AUTO) 2.1 % (0-6); HEMATOCRIT 35.6 % (37.9-51.0); HEMOGLOBIN 12.3 g/dL (13.5-17.0); LYMPHOCYTES % (AUTO) 26.6 % (13-45); MEAN CORPUSCULAR HEMOGLOBIN 33.7 pg (27.0-33.4); MEAN CORPUSCULAR HGB CONC 34.4 g/dL (32.0-36.0); MEAN CORPUSCULAR VOLUME 98 fl (80-97); MONOCYTES % (AUTO) 11.3 % (3-13); PLATELET COUNT 165 10^3/uL (150-450); RED BLOOD COUNT 3.64 10^6/uL (4.35-5.55); RED CELL DISTRIBUTION WIDTH 13.5 % (11.5-14.0); SEGMENTED NEUTROPHILS % (AUTO) 58.8 % (42-78); TOTAL CELLS COUNTED % (AUTO) 100 %; WHITE BLOOD COUNT 4.3 10^3/uL (4.0-10.5)
--- NOTE | 2019-10-14 19:44 | ER Document Report ---
ED Cardiac - General Chief Complaint: Chest Pain Stated Complaint: CHEST PAIN Time Seen by Provider: 10/14/19 19:15 Primary Care Provider: NEIL THOMAS MD [Primary Care Provider] - Follow up as needed Notes: 84-year-old man presents to the emergency department with a complaint of intermittent chest pain during the past couple of weeks. He states that the pain increases when he exercises. Today he had an episode of pain that started at around 2:00 PM, radiating into his left shoulder and lasted until appro ximately 5 PM. He also notes that he has had episodic chest pain at rest. He has had a prior history of catheterization with stent placement approximately 10 years ago he denies diaphoresis or shortness of breath. Presently he is chest pain-free. TRAVEL OUTSIDE OF THE [place] IN LAST 30 DAYS: No - Related Data Allergies/Adverse Reactions: Sulfa (Sulfonamide Antibiotics) Allergy (Mild, Verified 09/29/18 10:52) Hives Past Medical History - Social History Smoking Status: Unknown if Ever Smoked Family History: CAD, DM, Hypertension, Malignancy - Past Medical History Cardiac Medical History: Reports: Hx Atrial Fibrillation, Hx Coronary Artery Disease - STENTS x 2- 7 YR AGO, Hx Hypercholesterolemia, Hx Hypertension - ON MEDS Denies: Hx Heart Attack Pulmonary Medical History: Reports: Hx Sleep Apnea Denies: Hx Asthma, Hx Bronchitis, Hx COPD, Hx Pneumonia, Hx Tuberculosis Neurological Medical History: Denies: Hx Cerebrovascular Accident, Hx Seizures Renal/ Medical History: Reports: Hx Benign Prostatic Hyperplasia. Denies: Hx Peritoneal Dialysis GI Medical History: Reports: Hx Gastroesophageal Reflux Disease Musculoskeletal Medical History: Reports Hx Arthritis - BACK, KNEES, NECK, WRISTS Psychiatric Medical History: Reports: Hx Post Traumatic Stress Disorder Past Surgical History: Reports: Hx Bowel Surgery - hernia repair, Hx Cardiac Catheterization - 2 stents, Hx Coronary Stent - x 2, Hx Herniorrhaphy - BILATERAL INGUINAL, Hx Inguinal Hernia, Other - colonosocpy 3 yeara ago. Denies: Hx Pacemaker - Immunizations Hx Diphtheria, Pertussis, Tetanus Vaccination: No Hx Pneumococcal Vaccination: 07/29/13 Review of Systems - Review of Systems Notes: Constitutional: Negative for fever. HENT: Negative for sore throat. Eyes: Negative for visual changes. Cardiovascular: + Exertional chest pain. Respiratory: Negative for shortness of breath. Gastrointestinal: Negative for abdominal pain, vomiting or diarrhea. Genitourinary: Negative for dysuria. Musculoskeletal: Negative for back pain. Skin: Negative for rash. Neurological: Negative for headaches, weakness or numbness. 10 point ROS negative except as marked above and in HPI. Physical Exam - Vital signs Vitals: Temp Pulse Resp BP Pulse Ox 97.8 F 99 16 155/66 H 100 10/14/19 16:44 10/14/19 16:44 10/14/19 16:44 10/14/19 16:44 10/14/19 16:44 - Notes Notes: PHYSICAL EXAMINATION: Physical Exam: General: Well-nourished well-developed male in no acute distress HEENT: NC/AT, pupils equal round and reactive to light, MM moist,nares clear, Neck: supple, no adenopathy, no masses. Lungs: clear, no wheezing, no rales no rhonchi CVS: Regular rate and rhythm no murmur gallop or rub Abdomen: Soft active nontender, no masses, no hepatosplenomegaly Ext: No edema clubbing or cyanosis. Neuro: Alert and responsive, moving all 4 extremities on command, cranial nerves intact. Skin: Intact no open lesions, no rash PSYCH: Normal mood, normal affect. Course - Re-evaluation Re-evalutation: 10/14/19 19:41 Differential diagnosis Acute coronary syndrome, musculoskeletal chest pain, electrolyte imbalance 10/15/19 00:01 I discussed the patient with Dr. Huynh at [facility] she agrees that the patient should be brought in for closer evaluation given his history of exertional chest pain and episodic pain at rest. I discussed this plan with the patient and his and they are in agreement. - Vital Signs Vital signs: Temp Pulse Resp BP Pulse Ox 97.8 F 99 13 160/80 H 100 10/14/19 16:44 10/14/19 16:44 10/14/19 21:01 10/14/19 21:00 10/14/19 21:01 - Laboratory Result Diagrams: 10/14/19 19:13 10/14/19 19:13 Laboratory results interpreted by me: 10/14/19 19:13 RBC 3.64 L Hgb 12.3 L Hct 35.6 L MCV 98 H MCH 33.7 H 10/15/19 00:02 I have reviewed laboratory data and used this information for the treatment decisions regarding the patient. - EKG Interpretation by Me Rate: Normal - Rate of 60, abnormal T wave abnormalities noted. Discharge - Discharge Clinical Impression: Chest pain Qualifiers: Chest pain type: chest pain due to myocardial ischemia Ischemic chest pain type: unstable angina pectoris Qualified Code(s): I20.0 - Unstable angina Condition: Good Disposition: [facility] Referrals: NEIL THOMAS MD [Primary Care Provider] - Follow up as needed
[2019-10-14 19:59] LABS: CREATINE KINASE MB 0.42 ng/mL (<4.55); TROPONIN I 0.014 ng/mL
[2019-10-14 20:01] LABS: ALBUMIN 4.4 g/dL (3.5-5.0); ALKALINE PHOSPHATASE 78 U/L (38-126); ANION GAP 8 (5-19); ASPARTATE AMINO TRANSFERASE 31 U/L (17-59); BILIRUBIN,DIRECT 0.2 mg/dL (0.0-0.4); BILIRUBIN,TOTAL 0.5 mg/dL (0.2-1.3); BLOOD UREA NITROGEN 14 mg/dL (7-20); CALCIUM 9.2 mg/dL (8.4-10.2); CARBON DIOXIDE 30 mmol/L (22-30); CHLORIDE 101 mmol/L (98-107); CREATINE KINASE 76 U/L (55-170); GLUCOSE 81 mg/dL (75-110); POTASSIUM 4.1 mmol/L (3.6-5.0); TOTAL PROTEIN 8.2 g/dL (6.3-8.2)
--- NOTE | 2019-10-14 21:33 | EKG REPORT ---
SEVERITY:- BORDERLINE ECG - SINUS RHYTHM BORDERLINE T ABNORMALITIES, ANT-LAT LEADS : Confirmed by: Kaya Garcia MD 14-Oct-2019 21:32:36
[2019-10-14] MEDS ORDERED: ASPIRIN 81 MG TABLET, CHEWABLE PO ONE (23:54)
[2019-10-15 01:08] VITALS: BP 178/93
== END 2019-10-15 01:38 | disposition short-term general hospital (02) ==
LOC: ER 16:26
DX: I20.0 Unstable angina (principal); R07.9 Chest pain, unspecified; M25.512 Pain in left shoulder; I48.91 Unspecified atrial fibrillation; I10 Essential (primary) hypertension; Z79.899 Other long term (current) drug therapy
CPT/HCPCS: 93005; 99285; 36415; 82553; 82550; 85025; 80053; 84484; 93010; A9270

== ENCOUNTER 2020-02-18 09:51 | Observation (INO) | payer MEDICARE, OTHER ==
--- NOTE | 2020-02-18 10:02 | ER Document Report ---
ED General - General Chief Complaint: Chest Pain Stated Complaint: CHEST PAIN Primary Care Provider: NEIL THOMAS MD [Primary Care Provider] - Follow up as needed Mode of Arrival: Ambulatory Information source: Patient, [facility] Records Notes: Patient is an 84-year-old male presenting to the emergency department chief complaint of chest pain. The patient states it started yesterday he thought it would just go away and today when he woke up pain was much more severe. Patient states that he has pain in the left side of his neck also. Patient does report doing some yard work yesterday but does not feel it was very stressful patient denies nausea vomiting diarrhea fevers chills. TRAVEL OUTSIDE OF THE [place] IN LAST 30 DAYS: No - HPI Onset: Yesterday Onset/Duration: Gradual, Persistent, Worse Quality of pain: Pressure, Throbbing Severity: Severe Pain Level: 5 Associated symptoms: Other - neck pain Exacerbated by: Denies Relieved by: Denies Similar symptoms previously: Yes Recently seen / treated by doctor: No - Related Data Allergies/Adverse Reactions: Sulfa (Sulfonamide Antibiotics) Allergy (Mild, Verified 09/29/18 10:52) Hives milk Allergy (Verified 02/18/20 10:19) Past Medical History - General Information source: Patient, [facility] Records - Social History Smoking Status: Former Smoker Cigarette use (# per day): No Chew tobacco use (# tins/day): No Smoking Education Provided: No Frequency of alcohol use: None Drug Abuse: None Lives with: Spouse/Significant other Family History: CAD, DM, Hypertension, Malignancy Patient has suicidal ideation: No Patient has homicidal ideation: No - Past Medical History Cardiac Medical History: Reports: Hx Atrial Fibrillation, Hx Coronary Artery Disease - STENTS x 2- 7 YR AGO, Hx Hypercholesterolemia, Hx Hypertension - ON MEDS Denies: Hx Heart Attack Pulmonary Medical History: Reports: Hx Sleep Apnea Denies: Hx Asthma, Hx Bronchitis, Hx COPD, Hx Pneumonia, Hx Tuberculosis Neurological Medical History: Denies: Hx Cerebrovascular Accident, Hx Seizures Renal/ Medical History: Reports: Hx Benign Prostatic Hyperplasia. Denies: Hx Peritoneal Dialysis GI Medical History: Reports: Hx Gastroesophageal Reflux Disease Musculoskeletal Medical History: Reports Hx Arthritis - BACK, KNEES, NECK, WRISTS Psychiatric Medical History: Reports: Hx Post Traumatic Stress Disorder Past Surgical History: Reports: Hx Bowel Surgery - hernia repair, Hx Cardiac Catheterization - 2 stents, Hx Coronary Stent - x 2, Hx Herniorrhaphy - BILATERAL INGUINAL, Hx Inguinal Hernia, Other - colonosocpy 3 yeara ago. Denies: Hx Pacemaker - Immunizations Hx Diphtheria, Pertussis, Tetanus Vaccination: No Hx Pneumococcal Vaccination: 07/29/13 Review of Systems - Review of Systems Notes: REVIEW OF SYSTEMS: CONSTITUTIONAL : Denies fever, chills, or sweats. Denies recent illness. EENT: Denies eye, ear, throat, or mouth pain or symptoms. Denies nasal or sinus congestion. CARDIOVASCULAR: Per HPI RESPIRATORY: Denies cold, or chest congestion. Denies shortness of breath, difficulty breathing, or wheezing. GASTROINTESTINAL: Denies abdominal pain. Denies nausea, vomiting, or diarrhea. Denies constipation. GENITOURINARY: Denies difficulty urinating, painful urination, burning, frequency, or blood in urine. MUSCULOSKELETAL: Denies neck or back pain or joint pain or swelling. SKIN: Denies rash or skin lesions. HEMATOLOGIC : Denies easy bruising or bleeding. NEUROLOGICAL: Denies altered mental status or loss of consciousness. Denies headache. Denies weakness or paralysis or loss of use of either side. Denies problems with gait or speech. Denies sensory or motor loss. PSYCHIATRIC: Denies suicidal or homicidal ideations 10 Systems are negative unless otherwise specified above Physical Exam - Vital signs Vitals: Temp 98.2 F 02/18/20 09:51 - Notes Notes: PHYSICAL EXAMINATION: GENERAL: Well-appearing, well-nourished and in no acute distress. HEAD: Atraumatic, normocephalic. EYES: Pupils equal round and reactive to light, extraocular movements intact, sclera anicteric, conjunctiva are normal. ENT: nares patent, oropharynx clear without exudates. Moist mucous membranes. NECK: Normal range of motion, supple without lymphadenopathy, no appreciable JVD LUNGS: Lungs clear to auscultation bilaterally and equal. No wheezes rales or rhonchi. HEART: Regular rate and rhythm without murmurs ABDOMEN: Soft, nontender, normal bowel sounds. No guarding, no rebound. No masses appreciated. EXTREMITIES: Active full range of motion, no pitting or edema. No cyanosis. 2+ pulses x4 NEUROLOGICAL: No focal neurological deficits. Moves all extremities spontaneousl y and on command. SKIN: Warm, Dry, and intact. Normal turgor, no rashes or lesions noted. Course - Re-evaluation Re-evalutation: 02/18/20 10:18 EKG portable chest x-ray and laboratory studies have been ordered. Patient will receive aspirin and nitroglycerin per protocol. 02/18/20 12:05 Patient has been maintained in the emergency department on a monitoring analyst while present. Patient has been reevaluated several times while in the emergency department and no signs of decompensation have been noted. After evaluation of laboratory EKG and radiologic studies I see no signs of pneumonia, pneumothorax, acute myocardial infarction, unstable angina dissection or pulmonary embolism, there are no signs of rib fractures, no signs of acute coronary syndrome however at this time I feel most appropriate because of patient risk factors and prior history that the patient should be admitted for serial cardiac enzymes and stress test. Coronavirus test has been ordered. I have discussed these results with the patient answered all questions and patient is agreeable with admission at this time. Patient is consulted to the hospitalist for admission. Patient is stable at this time. - Vital Signs Vital signs: Temp Pulse Resp BP Pulse Ox 98.2 F 22 H 141/77 H 100 02/18/20 09:59 02/18/20 11:00 02/18/20 11:01 02/18/20 11:01 - Laboratory Result Diagrams: 02/18/20 10:20 02/18/20 10:20 Laboratory results interpreted by me: 02/18/20 02/18/20 10:20 10:20 WBC 3.0 L RBC 3.41 L Hgb 11.6 L Hct 32.8 L MCH 33.9 H Plt Count 147 L [place] % (Auto) 14.6 H Carbon Dioxide 31 H - Diagnostic Test Radiology reviewed: Image reviewed, Reports reviewed - EKG Interpretation by Mo EKG shows normal: Sinus rhythm Rate: Normal Rhythm: NSR Voltage: Consistant with LVH When compared to previous EKG there are: No significant change Discharge - Discharge Clinical Impression: HTN (hypertension) Qualifiers: Hypertension type: essential hypertension Qualified Code(s): I10 - Essential (primary) hypertension Coronary artery disease Qualifiers: Coronary Disease-Associated Artery/Lesion type: unspecified vessel or lesion type [place] vs. transplanted heart: [place] heart Associated angina: with stable angina Qualified Code(s): I25.118 - Atherosclerotic heart disease of [place] coronary artery with other forms of angina pectoris Chest pain Qualifiers: Chest pain type: unspecified Qualified Code(s): R07.9 - Chest pain, unspecified Condition: Stable Disposition: ADMITTED OBSERVATION Admitting Provider: Bryan (Hospitalist) Unit Admitted: Telemetry Referrals: NEIL THOMAS MD [Primary Care Provider] - Follow up as needed
[2020-02-18] MEDS ORDERED: NITROGLYCERIN 2% OINTMENT 1 GM PACKET TP ONE (10:15)
[2020-02-18] MEDS ORDERED: ASPIRIN 81 MG TABLET, CHEWABLE PO ONE (10:15)
[2020-02-18 10:44] LABS: ABSOLUTE EOSINOPHILS # (AUTO) 0.1 10^3/uL (0.0-0.6); ABSOLUTE LYMPHOCYTES (AUTO) 0.7 10^3/uL (0.5-4.7); ABSOLUTE MONOCYTES (AUTO) 0.4 10^3/uL (0.1-1.4); ABSOLUTE NEUT (AUTO) 1.7 10^3/uL (1.7-8.2); EOSINOPHILS % (AUTO) 2.3 % (0-6); HEMATOCRIT 32.8 % (37.9-51.0); HEMOGLOBIN 11.6 g/dL (13.5-17.0); LYMPHOCYTES % (AUTO) 25.2 % (13-45); MEAN CORPUSCULAR HEMOGLOBIN 33.9 pg (27.0-33.4); MEAN CORPUSCULAR HGB CONC 35.3 g/dL (32.0-36.0); MEAN CORPUSCULAR VOLUME 96 fl (80-97); MONOCYTES % (AUTO) 14.6 % (3-13); PLATELET COUNT 147 10^3/uL (150-450); RED BLOOD COUNT 3.41 10^6/uL (4.35-5.55); RED CELL DISTRIBUTION WIDTH 13.5 % (11.5-14.0); SEGMENTED NEUTROPHILS % (AUTO) 56.9 % (42-78); TOTAL CELLS COUNTED % (AUTO) 100 %
[2020-02-18 10:50] LABS: ALKALINE PHOSPHATASE 62 U/L (38-126); ANION GAP 5 (5-19); ASPARTATE AMINO TRANSFERASE 24 U/L (17-59); BILIRUBIN,TOTAL 0.5 mg/dL (0.2-1.3); BLOOD UREA NITROGEN 18 mg/dL (7-20); CALCIUM 8.7 mg/dL (8.4-10.2); CARBON DIOXIDE 31 mmol/L (22-30); CHLORIDE 102 mmol/L (98-107); CREATINE KINASE 65 U/L (55-170); GLUCOSE 109 mg/dL (75-110); TOTAL PROTEIN 7.1 g/dL (6.3-8.2)
[2020-02-18 11:02] LABS: CREATINE KINASE MB 0.31 ng/mL (<4.55); NT PRO BNP 95 pg/mL (<450)
[2020-02-18 11:04] LABS: TROPONIN I < 0.012 ng/mL
[2020-02-18 11:06] LABS: PROTHROMBIN TIME 13.2 SEC (11.4-15.4)
--- NOTE | 2020-02-18 11:14 | RADIOLOGY REPORT (SQ) ---
EXAM DESCRIPTION: CHEST SINGLE VIEW IMAGES COMPLETED DATE/TIME: 02/18/2020 10:34 am REASON FOR STUDY: cp COMPARISON: 09/29/2018 EXAM PARAMETERS: NUMBER OF VIEWS: One view. TECHNIQUE: Single frontal radiographic view of the chest acquired. RADIATION DOSE: NA LIMITATIONS: None. FINDINGS: LUNGS AND PLEURA: No opacities, masses or pneumothorax. No pleural effusion. MEDIASTINUM AND HILAR STRUCTURES: No masses. Contour normal. HEART AND VASCULAR STRUCTURES: Heart normal in size. Normal vasculature. BONES: No acute findings. HARDWARE: None in the chest. OTHER: No other significant finding. IMPRESSION: NO ACUTE RADIOGRAPHIC FINDING IN THE CHEST. TECHNICAL DOCUMENTATION: JOB ID: [id number] 2010 [employer]- All Rights Reserved Reading location - IP/workstation name: [email or web address]
--- NOTE | 2020-02-18 14:03 | PDOC H&P ---
History of Present Illness Admission Date/PCP: 02/18/20 12:37 NEIL THOMAS MD History of Present Illness: DEAN GARCIA is a 84 year old male with a history of coronary artery dise ase, hypertension, and COPD who was in his usual state of health until yesterday morning. He is spent the last few days doing a lot of cleaning up in his house along with his , it has been raining so much and he said they were trying to take advantage of the time they were forced to be in the house going through a lot of their various belongings and clearing of much of things out of the air a nd giving the house a good thorough cleaning. He said yesterday morning he woke up with pain in his left shoulder. He described it as a sharp ache. He said it lasted about 10 or 15 minutes and then went away. He said they did some more housework yesterday. He said he felt fine when he went to bed last night. He woke up this morning and he had pain in the same spot, he felt like it was his left upper chest and shoulder. He said it lasted for about 30 minutes this time and so he told his to get ready because he was going to come to the hospital. He said his let up now. He does not remember anything that he did specifically that aggravated it or anything that makes it better or worse because it did not bother him at all throughout the rest of the day. He said his last best test was in September of last year and it was normal. He said he had 2 stents placed via cardiac catheterization about 12 years ago. He is a non-smoker these days. He said he was in the service in [place] and he smoked for a while at that time. His labs, EKG, and troponin were all unremarkable, he had some chronic T wave flattening that is been seen on prior EKGs and so that is unchanged from the previous. I got him to flex his shoulder and an abducted position and this made the shoulder hurts. He had point tenderness over the AC joint and immediately posterior to the AC joint on the left. He denied any shortness of breath to me but apparently somebody thought he must have been short of breath at some point because they put him in the coronavirus testing area in the ER. Past Medical History Cardiac Medical History: Reports: Atrial Fibrillation, Coronary Artery Disease - STENTS x 2- 7 YR AGO, Hyperlipidema, Hypertension - ON MEDS Denies: Myocardial Infarction Pulmonary Medical History: Reports: Sleep Apnea Denies: Asthma, Bronchitis, Chronic Obstructive Pulmonary Disease (COPD), Pneumonia, Tuberculosis Neurological Medical History: Denies: Seizures GI Medical History: Reports: Gastroesophageal Reflux Disease Musculoskeltal Medical History: Reports: Arthritis - BACK, KNEES, NECK, WRISTS Psychiatric Medical History: Reports: Post Traumatic Stress Disorder Hematology: Denies: Anemia Past Surgical History Past Surgical History: Reports: Cardiac Catheterization - 2 stents, Coronary Stent - x 2, Herniorrhaphy - BILATERAL INGUINAL, Other - colonosocpy 3 yeara ago Denies: Pacemaker Social History Lives with: Spouse/Significant other Smoking Status: Former Smoker Frequency of Alcohol Use: None Hx Recreational Drug Use: No Drugs: None Hx Prescription Drug Abuse: No Family History Family History: CAD, DM, Hypertension, Malignancy Parental Family History Reviewed: Yes Children Family History Reviewed: Yes Sibling(s) Family History Reviewed.: Yes Medication/Allergy Home Medications: Aspirin [Adult Low Dose Aspirin EC] 81 mg PO DAILY 12/10/17 Atenolol [Tenormin] 25 mg PO DAILY 12/10/17 Dexlansoprazole [Dexilant 60 mg Capsule] 60 mg PO DAILY 12/10/17 Doxazosin Mesylate [Cardura 4 mg Tablet] 4 mg PO DAILY 12/10/17 Fluticasone/Vilanterol [Breo Ellipta 100-25 Mcg INH] 1 puff IH DAILY 12/10/17 Ranitidine HCl [Zantac 150 mg Tablet] 150 mg PO DAILY 12/10/17 Telmisartan [Micardis 80 mg Tablet] 80 mg PO DAILY 12/10/17 Atorvastatin Calcium 80 mg PO DAILY #10 tablet 12/16/17 Atorvastatin Calcium [Lipitor 80 mg Tablet] 80 mg PO QHS tablet 12/16/17 Nitroglycerin [Nitrostat 0.4 mg (1/150 Gr) Tabs 25/Bottle] 1 tab SL ASDIR PRN #1 bottle 12/16/17 Allergies/Adverse Reactions: Sulfa (Sulfonamide Antibiotics) Allergy (Mild, Verified 09/29/18 10:52) Hives milk Allergy (Verified 02/18/20 10:19) Review of Systems All systems: reviewed and no additional remarkable complaints except as stated - All systems were reviewed and were negative except as noted in the HPI Physical Exam Vital Signs: Temp Pulse Resp BP Pulse Ox 98.2 F 22 H 141/77 H 100 02/18/20 09:59 02/18/20 11:00 02/18/20 11:01 02/18/20 11:01 Intake & Output 02/17/20 02/18/20 02/19/20 06:59 06:59 06:59 Weight 63.503 kg General appearance: PRESENT: no acute distress, cooperative, thin, well- developed, well-nourished Head exam: PRESENT: normocephalic Eye exam: PRESENT: EOMI, PERRLA. ABSENT: conjunctival injection, nystagmus, scleral icterus Ear exam: PRESENT: normal external ear exam Mouth exam: PRESENT: moist, neck supple Throat exam: ABSENT: post pharyngeal erythema Neck exam: PRESENT: full ROM. ABSENT: carotid bruit, JVD, lymphadenopathy, meningismus, tenderness, thyromegaly Respiratory exam: PRESENT: clear to auscultation saul, symmetrical, unlabored. ABSENT: accessory muscle use, chest wall tenderness, crackles, prolonged expiratory phas, rhonchi, tachypnea, wheezes Cardiovascular exam: PRESENT: RRR, +S1, +S2 Pulses: PRESENT: normal carotid pulses Vascular exam: PRESENT: normal capillary refill GI/Abdominal exam: PRESENT: normal bowel sounds, soft. ABSENT: distended, guarding, rebound, tenderness Extremities exam: ABSENT: clubbing, pedal edema Musculoskeletal exam: PRESENT: other - Positive Neer and positive [place] on the left, point tenderness elicited over the left AC joint and immediately posterior to the left AC joint. ABSENT: deformity Neurological exam: PRESENT: alert, awake, oriented to person, oriented to place, oriented to time, oriented to situation, CN II-XII grossly intact. ABSENT: motor sensory deficit Psychiatric exam: PRESENT: appropriate affect, normal mood Skin exam: PRESENT: dry, warm Results Laboratory Results: 02/18/20 10:20 02/18/20 10:20 02/18/20 02/18/20 10:20 10:20 WBC 3.0 L RBC 3.41 L Hgb 11.6 L Hct 32.8 L MCV 96 MCH 33.9 H MCHC 35.3 RDW 13.5 Plt Count 147 L Seg Neutrophils % 56.9 Sodium 137.8 Potassium 4.0 Chloride 102 Carbon Dioxide 31 H Anion Gap 5 BUN 18 Creatinine 1.02 Est GFR ( Amer) > 60 Glucose 109 Calcium 8.7 Total Bilirubin 0.5 AST 24 Alkaline Phosphatase 62 Total Protein 7.1 Albumin 4.0 Lipase 54.4 02/18/20 02/18/20 10:20 10:20 Creatine Kinase 65 CK-MB (CK-2) 0.31 Troponin I < 0.012 NT-Pro-B Natriuret Pep 95 Impressions: Chest X-Ray 02/18/20 10:03 IMPRESSION: NO ACUTE RADIOGRAPHIC FINDING IN THE CHEST. Assessment and Plan - Diagnosis (1) Impingement syndrome, shoulder, left Is this a current diagnosis for this admission?: Yes Plan: This patient does not have any chest pain. What he has is a left shoulder impingement syndrome. He probably also has some left AC joint arthritis. He was using his extremities a lot over the last few days doing a lot of work in his house and probably the overuse is what is caused his symptoms. His pain was completely reproducible. He does not have a polisher dial here yet, he supposed to be getting set up to see Dr. Dumont in [place] but has been following up with a Dr. Garcia in [place]. The only reason I am even keeping him is because he does have a history of coronary artery disease and his last evaluation was over a year ago. Initial troponin was negative. We will get a couple more troponins. If everything ruled out we will send him home in the morning. I do not think this is cardiac at all. If I had the patient's polisher dial available I would have them check with him because I think it would make both the patient and the ER feel better about the whole situation. (2) Coronary artery disease Qualifiers: Coronary Disease-Associated Artery/Lesion type: unspecified vessel or lesion type [place] vs. transplanted heart: [place] heart Associated angina: with stable angina Qualified Code(s): I25.118 - Atherosclerotic heart disease of [place] coronary artery with other forms of angina pectoris Is this a current diagnosis for this admission?: Yes Plan: As previously noted, will continue home medications (3) HTN (hypertension) Qualifiers: Hypertension type: essential hypertension Qualified Code(s): I10 - Essential (primary) hypertension Is this a current diagnosis for this admission?: Yes Plan: We will continue his home medications (4) GERD (gastroesophageal reflux disease) Qualifiers: Esophagitis presence: without esophagitis Qualified Code(s): K21.9 - Gastro-esophageal reflux disease without esophagitis Is this a current diagnosis for this admission?: Yes Plan: We will continue his PPI (5) Hyperlipidemia Qualifiers: Hyperlipidemia type: unspecified Qualified Code(s): E78.5 - Hyperlipidemia, unspecified Is this a current diagnosis for this admission?: Yes Plan: We will continue his Lipitor (6) Prostate cancer Is this a current diagnosis for this admission?: Yes Plan: He does not remember the name everything he takes, but it says in his medication record that he does take Flomax. We will continue that. - Time Time Spent with patient: 35 or more minutes
--- NOTE | 2020-02-18 17:14 | EKG REPORT ---
SEVERITY:- ABNORMAL ECG - SINUS RHYTHM NONSPECIFIC T ABNORMALITIES, ANT-LAT LEADS : Confirmed by: Kaya Garcia MD 18-Feb-2020 17:13:35
[2020-02-18] MEDS ORDERED: IBUPROFEN 800 MG TABLET PO ONE (19:30)
[2020-02-19 06:43] LABS: HEMATOCRIT 29.9 % (37.9-51.0); HEMOGLOBIN 10.8 g/dL (13.5-17.0); MEAN CORPUSCULAR HEMOGLOBIN 34.4 pg (27.0-33.4); MEAN CORPUSCULAR VOLUME 95 fl (80-97); PLATELET COUNT 131 10^3/uL (150-450); RED BLOOD COUNT 3.14 10^6/uL (4.35-5.55); RED CELL DISTRIBUTION WIDTH 13.2 % (11.5-14.0); WHITE BLOOD COUNT 3.9 10^3/uL (4.0-10.5)
[2020-02-19 07:03] LABS: ANION GAP 5 (5-19); BLOOD UREA NITROGEN 18 mg/dL (7-20); CALCIUM 8.4 mg/dL (8.4-10.2); CARBON DIOXIDE 29 mmol/L (22-30); CHLORIDE 102 mmol/L (98-107); GLUCOSE 93 mg/dL (75-110)
[2020-02-19] MEDS ORDERED: FLUTICASONE/VILANTEROL 100-25 MCG/DOSE IH SCH (10:00)
[2020-02-19] MEDS ORDERED: ATORVASTATIN CALCIUM 80 MG TABLET PO SCH (10:00)
[2020-02-19] MEDS ORDERED: (PENDING PHARMACY ID) (Telmisartan [Micardis 80 Mg Tablet] 80 MG) PO SCH (10:00)
[2020-02-19] MEDS ORDERED: LOSARTAN POTASSIUM 50 MG TABLET PO SCH (10:00)
[2020-02-19] MEDS ORDERED: ASPIRIN 81 MG TABLET, ENT COATED PO SCH (10:00)
[2020-02-19 11:47] VITALS: BP 158/75
--- NOTE | 2020-02-19 14:22 | PDOC DISCHARGE SUMMARY ---
Impression - Admit/DC Date/PCP Admission Date/Primary Care Provider: 02/18/20 12:37 NEIL THOMAS MD Discharge Date: 02/19/20 - Discharge Diagnosis (1) Impingement syndrome, shoulder, left Is this a current diagnosis for this admission?: Yes (2) Coronary artery disease Is this a current diagnosis for this admission?: Yes (3) HTN (hypertension) Is this a current diagnosis for this admission?: Yes (4) GERD (gastroesophageal reflux disease) Is this a current diagnosis for this admission?: Yes (5) Hyperlipidemia Is this a current diagnosis for this admission?: Yes (6) Prostate cancer Is this a current diagnosis for this admission?: Yes - Additional Information Resuscitation Status: Full Code Discharge Diet: Cardiac Discharge Activity: Activity As Tolerated Referrals: NEIL THOMAS MD [Primary Care Provider] - Follow up as needed Home Medications: Aspirin [Adult Low Dose Aspirin EC] 81 mg PO DAILY 12/10/17 Fluticasone/Vilanterol [Breo Ellipta 100-25 Mcg INH] 1 puff IH DAILY 12/10/17 Ranitidine HCl [Zantac 150 mg Tablet] 150 mg PO DAILYP PRN 12/10/17 Telmisartan [Micardis 80 mg Tablet] 80 mg PO DAILY 12/10/17 Atorvastatin Calcium [Lipitor 80 mg Tablet] 80 mg PO QHS tablet 12/16/17 Ipratropium [place] 1 spray NASL DAILY 02/19/20 Montelukast Sodium [Singulair 10 mg Tablet] 10 mg PO QPM 02/19/20 Pantoprazole Sodium [Protonix [address] Tablet] 40 mg PO QAM 02/19/20 Potassium Chloride [Klor-Con M20] 20 meq PO DAILY 02/19/20 History of Present Illiness History of Present Illness: DEAN GARCIA is a 84 year old male with a history of coronary artery disease, hypertension, and COPD who was in his usual state of health until yesterday morning. He is spent the last few days doing a lot of cleaning up in his house along with his , it has been raining so much and he said they were trying to take advantage of the time they were forced to be in the house going through a lot of their various belongings and clearing of much of things out of the air and giving the house a good thorough cleaning. He said yesterday morning he woke up with pain in his left shoulder. He described it as a sharp ache. He said it lasted about 10 or 15 minutes and then went away. He said the y did some more housework yesterday. He said he felt fine when he went to bed last night. He woke up this morning and he had pain in the same spot, he felt like it was his left upper chest and shoulder. He said it lasted for about 30 minutes this time and so he told his to get ready because he was going to come to the hospital. He said his let up now. He does not remember anything that he did specifically that aggravated it or anything that makes it better or worse because it did not bother him at all throughout the rest of the day. He said his last best test was in September of last year and it was normal. He said he had 2 stents placed via cardiac catheterization about 12 years ago. He is a non-smoker these days. He said he was in the service in [place] and he smoked for a while at that time. His labs, EKG, and troponin were all unremarkable, he had some chronic T wave flattening that is been seen on prior EKGs and so that is unchanged from the previous. I got him to flex his shoulder and an abducted position and this made the shoulder hurts. He had point tenderness over the AC joint and immediately posterior to the AC joint on the left. He denied any shortness of breath to me but apparently somebody thought he must have been short of breath at some point because they put him in the coronavirus testing area in the ER. Hospital Course Hospital Course: As expected, he ruled out for an acute coronary event. He was having some pain in the shoulder last night and took some ibuprofen and it made his pain go away completely. He said he woke up this morning and did not have any pain in his shoulder at all. He had no events on telemetry and his EKGs remained unchanged. He was ambulating independently and eating and drinking without difficulty. He has follow-up scheduled with his primary care provider in approximately 1 week and he has follow-up arranged with his grinder needle tip as previously scheduled. His labs and examination were reassuring he was discharged in stable condition. Physical Exam Vital Signs: Temp Pulse Resp BP Pulse Ox 97.6 F 50 L 16 158/75 H 100 02/19/20 11:46 02/19/20 11:46 02/19/20 11:46 02/19/20 11:46 02/19/20 11:46 Intake & Output 02/18/20 02/19/20 02/20/20 06:59 06:59 06:59 Weight 68.3 kg General appearance: PRESENT: no acute distress, cooperative, thin, well- developed, well-nourished Respiratory exam: PRESENT: clear to auscultation saul, symmetrical, unlabored. ABSENT: accessory muscle use, chest wall tenderness, crackles, prolonged expiratory phas, rhonchi, tachypnea, wheezes Cardiovascular exam: PRESENT: RRR, +S1, +S2 Pulses: PRESENT: normal carotid pulses Vascular exam: PRESENT: normal capillary refill GI/Abdominal exam: PRESENT: normal bowel sounds, soft. ABSENT: distended, guarding, rebound, tenderness Extremities exam: ABSENT: clubbing, pedal edema Musculoskeletal exam: PRESENT: No deformity, normal inspection Neurological exam: PRESENT: alert, awake, oriented to person, oriented to place, oriented to time, oriented to situation Psychiatric exam: PRESENT: appropriate affect, normal mood Skin exam: PRESENT: dry, warm Results Laboratory Results: WBC 3.9 10^3/uL (4.0-10.5) L 02/19/20 05:52 RBC 3.14 10^6/uL (4.35-5.55) L 02/19/20 05:52 Hgb 10.8 g/dL (13.5-17.0) L 02/19/20 05:52 Hct 29.9 % (37.9-51.0) L 02/19/20 05:52 MCV 95 fl (80-97) 02/19/20 05:52 MCH 34.4 pg (27.0-33.4) H 02/19/20 05:52 MCHC 36.0 g/dL (32.0-36.0) 02/19/20 05:52 RDW 13.2 % (11.5-14.0) 02/19/20 05:52 Plt Count 131 10^3/uL (150-450) L 02/19/20 05:52 Lymph % (Auto) 25.2 % (13-45) 02/18/20 10:20 [place] % (Auto) 14.6 % (3-13) H 02/18/20 10:20 Eos % (Auto) 2.3 % (0-6) 02/18/20 10:20 Baso % (Auto) 1.0 % (0-2) 02/18/20 10:20 Absolute Neuts (auto) 1.7 10^3/uL (1.7-8.2) 02/18/20 10:20 Absolute Lymphs (auto) 0.7 10^3/uL (0.5-4.7) 02/18/20 10:20 Absolute Monos (auto) 0.4 10^3/uL (0.1-1.4) 02/18/20 10:20 Absolute Eos (auto) 0.1 10^3/uL (0.0-0.6) 02/18/20 10:20 Absolute Basos (auto) 0.0 10^3/uL (0.0-0.2) 02/18/20 10:20 Seg Neutrophils % 56.9 % (42-78) 02/18/20 10:20 PT 13.2 SEC (11.4-15.4) 02/18/20 10:20 INR 1.00 02/18/20 10:20 Sodium 135.8 mmol/L (137-145) L 02/19/20 05:52 Potassium 4.0 mmol/L (3.6-5.0) 02/19/20 05:52 Chloride 102 mmol/L (98-107) 02/19/20 05:52 Carbon Dioxide 29 mmol/L (22-30) 02/19/20 05:52 Anion Gap 5 (5-19) 02/19/20 05:52 BUN 18 mg/dL (7-20) 02/19/20 05:52 Creatinine 1.03 mg/dL (0.52-1.25) 02/19/20 05:52 Est GFR ( Amer) > 60 (>60) 02/19/20 05:52 Est GFR (MDRD) Non-Af > 60 (>60) 02/19/20 05:52 Glucose 93 mg/dL (75-110) 02/19/20 05:52 Calcium 8.4 mg/dL (8.4-10.2) 02/19/20 05:52 Total Bilirubin 0.5 mg/dL (0.2-1.3) 02/18/20 10:20 Direct Bilirubin 0.0 mg/dL (0.0-0.4) 02/18/20 10:20 Neonat Total Bilirubin Not Reportable 02/18/20 10:20 Neonat Direct Bilirubin Not Reportable 02/18/20 10:20 Neonat Indirect Bili Not Reportable 02/18/20 10:20 AST 24 U/L (17-59) 02/18/20 10:20 ALT 20 U/L (<50) 02/18/20 10:20 Alkaline Phosphatase 62 U/L (38-126) 02/18/20 10:20 Creatine Kinase 65 U/L (55-170) 02/18/20 10:20 CK-MB (CK-2) 0.31 ng/mL (<4.55) 02/18/20 10:20 Troponin I < 0.012 ng/mL 02/18/20 19:45 NT-Pro-B Natriuret Pep 95 pg/mL (<450) 02/18/20 10:20 Total Protein 7.1 g/dL (6.3-8.2) 02/18/20 10:20 Albumin 4.0 g/dL (3.5-5.0) 02/18/20 10:20 Lipase 54.4 U/L (23-300) 02/18/20 10:20 SARS-CoV-2 (PCR) NEGATIVE (NEGATIVE) 02/18/20 12:25 02/18/20 02/18/20 02/18/20 10:20 14:33 19:45 CK-MB (CK-2) 0.31 Troponin I < 0.012 < 0.012 < 0.012 NT-Pro-B Natriuret Pep 95 Impressions: Chest X-Ray 02/18/20 10:03 IMPRESSION: NO ACUTE RADIOGRAPHIC FINDING IN THE CHEST. Plan Time Spent: Greater than 30 Minutes Stroke Is this a Stroke Patient?: No Acute Heart Failure - Is this a Heart Failure Patient?: No
== END 2020-02-19 12:06 | disposition home or self-care (01) ==
LOC: ER 09:51 → EH 12:37 → 4W 16:29
PROVIDERS: ADMIT Family Medicine; ATTEND Family Medicine
DX: M75.42 Impingement syndrome of left shoulder (principal); I25.118 Atherosclerotic heart disease of native coronary artery with other forms of angina pectoris; I10 Essential (primary) hypertension; K21.9 Gastro-esophageal reflux disease without esophagitis; C61 Malignant neoplasm of prostate; E78.5 Hyperlipidemia, unspecified; J44.9 Chronic obstructive pulmonary disease, unspecified; M54.2 Cervicalgia; M13.88 Other specified arthritis, other site; Z79.899 Other long term (current) drug therapy; Z79.82 Long term (current) use of aspirin; Z95.5 Presence of coronary angioplasty implant and graft; Z87.891 Personal history of nicotine dependence; Z82.49 Family history of ischemic heart disease and other diseases of the circulatory system; Z79.51 Long term (current) use of inhaled steroids; Z03.818 Encounter for observation for suspected exposure to other biological agents ruled out
CPT/HCPCS: 93005; 99285; 36415 ×2; 82553; 82550; 83690; 85025; 85027; 85610; 80048; 80053; 84484; 83880; 71045; 93010; U0003; A9270 ×6; J3490 ×3; 87635

== ENCOUNTER 2020-05-04 13:58 | Emergency (ER) | payer MEDICARE, OTHER ==
[2020-05-04] MEDS ORDERED: DICYCLOMINE HCL 20 MG TABLET PO ONE (16:01)
--- NOTE | 2020-05-04 16:05 | ER Document Report ---
ED Medical Screen (RME) - General Chief Complaint: Abdominal Pain Stated Complaint: FELL PELVIC/BACK/SIDE PAIN Time Seen by Provider: 05/04/20 15:57 Primary Care Provider: NEIL THOMAS MD [Primary Care Provider] - Follow up as needed Notes: Patient is an 84-year-old male with a history of prostate cancer who presents the emergency department with a chief complaint of pelvic pain and lower abdominal pain. About 3 days ago, the patient fell, but his chair caught his fall. Patient states that he is having normal bowel movements, but states that for the past week he has been having some pain in his lower abdomen. Exam: Soft, moderately tender mid lower abdomen. I have greeted and performed a rapid initial assessment of this patient. A comprehensive ED assessment and evaluation of the patient, analysis of test results and completion of medical decision making process will be conducted by an additional ED providers. TRAVEL OUTSIDE OF THE [place] IN LAST 30 DAYS: No - Related Data Allergies/Adverse Reactions: Sulfa (Sulfonamide Antibiotics) Allergy (Mild, Verified 05/04/20 15:56) Hives milk Allergy (Verified 05/04/20 15:56) Past Medical History - Social History Chew tobacco use (# tins/day): No Drug Abuse: None - Past Medical History Cardiac Medical History: Reports: Hx Atrial Fibrillation, Hx Coronary Artery Disease - STENTS x 2- 7 YR AGO, Hx Hypercholesterolemia, Hx Hypertension - ON MEDS Denies: Hx Heart Attack Pulmonary Medical History: Reports: Hx Sleep Apnea Denies: Hx Asthma, Hx Bronchitis, Hx COPD, Hx Pneumonia, Hx Tuberculosis Neurological Medical History: Denies: Hx Cerebrovascular Accident, Hx Seizures Renal/ Medical History: Reports: Hx Benign Prostatic Hyperplasia. Denies: Hx Peritoneal Dialysis GI Medical History: Reports: Hx Gastroesophageal Reflux Disease Musculoskeltal Medical History: Reports Hx Arthritis - BACK, KNEES, NECK, WRISTS Psychiatric Medical History: Reports: Hx Post Traumatic Stress Disorder Denies: Hx Depression Past Surgical History: Reports: Hx Bowel Surgery - hernia repair, Hx Cardiac Catheterization - 2 stents, Hx Coronary Stent - x 2, Hx Herniorrhaphy - BILATERAL INGUINAL, Hx Inguinal Hernia, Other - colonosocpy 3 yeara ago. Denies: Hx Pacemaker - Immunizations Hx Diphtheria, Pertussis, Tetanus Vaccination: No Physical Exam - Vital signs Vitals: Temp Pulse Resp BP Pulse Ox 98.3 F 78 18 126/71 H 99 05/04/20 14:40 05/04/20 14:40 05/04/20 14:40 05/04/20 14:40 05/04/20 14:40 Course - Vital Signs Vital signs: Temp Pulse Resp BP Pulse Ox 98.3 F 78 18 126/71 H 99 05/04/20 14:40 05/04/20 14:40 05/04/20 14:40 05/04/20 14:40 05/04/20 14:40 Doctor's Discharge - Discharge Referrals: NEIL THOMAS MD [Primary Care Provider] - Follow up as needed
[2020-05-04 16:37] LABS: ABSOLUTE EOSINOPHILS # (AUTO) 0.1 10^3/uL (0.0-0.6); ABSOLUTE LYMPHOCYTES (AUTO) 0.9 10^3/uL (0.5-4.7); ABSOLUTE MONOCYTES (AUTO) 0.6 10^3/uL (0.1-1.4); ABSOLUTE NEUT (AUTO) 3.7 10^3/uL (1.7-8.2); BASOPHILS % (AUTO) 0.9 % (0-2); EOSINOPHILS % (AUTO) 2.2 % (0-6); HEMATOCRIT 35.9 % (37.9-51.0); HEMOGLOBIN 12.1 g/dL (13.5-17.0); LYMPHOCYTES % (AUTO) 17.3 % (13-45); MEAN CORPUSCULAR HEMOGLOBIN 33.1 pg (27.0-33.4); MEAN CORPUSCULAR HGB CONC 33.8 g/dL (32.0-36.0); MEAN CORPUSCULAR VOLUME 98 fl (80-97); PLATELET COUNT 180 10^3/uL (150-450); RED BLOOD COUNT 3.65 10^6/uL (4.35-5.55); RED CELL DISTRIBUTION WIDTH 13.4 % (11.5-14.0); SEGMENTED NEUTROPHILS % (AUTO) 68.6 % (42-78); TOTAL CELLS COUNTED % (AUTO) 100 %; WHITE BLOOD COUNT 5.4 10^3/uL (4.0-10.5)
[2020-05-04 16:43] LABS: APPEARANCE,URINE CLEAR; BILIRUBIN,URINE NEGATIVE (NEGATIVE); COLOR,URINE YELLOW; GLUCOSE, URINE NEGATIVE (NEGATIVE); KETONES,URINE NEGATIVE (NEGATIVE); PROTEIN,URINE 30 mg/dL (NEGATIVE); URINE SPECIFIC GRAVITY 1.029; UROBILINOGEN,URINE NEGATIVE mg/dL (<2.0)
[2020-05-04 17:07] LABS: ALKALINE PHOSPHATASE 60 U/L (38-126); ANION GAP 7 (5-19); ASPARTATE AMINO TRANSFERASE 28 U/L (17-59); BILIRUBIN,TOTAL 0.5 mg/dL (0.2-1.3); BLOOD UREA NITROGEN 21 mg/dL (7-20); CALCIUM 9.1 mg/dL (8.4-10.2); CARBON DIOXIDE 31 mmol/L (22-30); CHLORIDE 104 mmol/L (98-107); GLUCOSE 105 mg/dL (75-110); POTASSIUM 4.4 mmol/L (3.6-5.0); TOTAL PROTEIN 7.6 g/dL (6.3-8.2)
[2020-05-04] MEDS ORDERED: TRAMADOL HCL 50 MG TABLET PO ONE (21:59)
--- NOTE | 2020-05-04 22:48 | RADIOLOGY REPORT (SQ) ---
EXAM DESCRIPTION: CT THORACIC SPINE WITHOUT IV CONTRAST COMPLETED DATE/TME: 05/04/2020 21:57 CLINICAL HISTORY: 84 years, Male, trauma COMPARISON: None. TECHNIQUE: [id number] Images stored on PACS. All CT scanners at this facility use dose modulation, iterative reconstruction, and/or weight based dosing when appropriate to reduce radiation dose to as low as reasonably achievable (ALARA). [facility]: Dose Right [facility]: CareDose [facility]: Dose Right [facility]: Teradose 4D [facility]: [employer] Technologies LIMITATIONS: None. FINDINGS: Evaluation of spinal canal contents limited due to CT technique. However, in the thoracic spine, vertebral body height and alignment is preserved. Partial visualization of advanced endplate degenerative changes of the upper lumbar spine. Minor endplate degenerative changes of the mid thoracic spine. Limited evaluation of extraspinal anatomic structures shows calcified mediastinal lymph nodes. Slight accentuation of the normal thoracic kyphosis. IMPRESSION: No CT evidence for acute T-spine abnormality TECHNICAL DOCUMENTATION: Quality ID # 436: Final reports with documentation of one or more dose reduction techniques (e.g., Automated exposure control, adjustment of the mA and/or kV according to patient size, use of iterative reconstruction technique) copyright 2010 [employer]- All Rights Reserved
--- NOTE | 2020-05-04 22:50 | RADIOLOGY REPORT (SQ) ---
EXAM DESCRIPTION: CT ABDOMEN PELVIS WITH IV CONTRAST COMPLETED DATE/TME: 05/04/2020 21:57 CLINICAL HISTORY: 84 years, Male, elderly fall last week upper abd pelvic pain COMPARISON: 12/30/2016 CTA abdomen/pelvis TECHNIQUE: 352 Images stored on PACS. All CT scanners at this facility use dose modulation, iterative reconstruction, and/or weight based dosing when appropriate to reduce radiation dose to as low as reasonably achievable (ALARA). [facility]: Dose Right [facility]: CareDose [facility]: Dose Right [facility]: Teradose 4D [facility]: [employer] LIMITATIONS: None. FINDINGS: Limited evaluation of the lung bases is unremarkable. Osseous structures of the abdomen/pelvis show advanced degenerative changes of the lumbar spine. Osseous structures are otherwise grossly intact. Post surgical changes of the pelvis. The liver, spleen, adrenal glands, pancreas, kidneys are unremarkable. The gallbladder is present. No gross evidence for bowel obstruction. Normal appendix. Abundant stool in the colon. No free air or free fluid. Sigmoid diverticulosis without CT evidence for diverticulitis. Mild atheromatous change IMPRESSION: No acute intra-abdominal/pelvic process. Abundant stool in the colon. Sigmoid diverticulosis without CT evidence for diverticulitis TECHNICAL DOCUMENTATION: Quality ID # 436: Final reports with documentation of one or more dose reduction techniques (e.g., Automated exposure control, adjustment of the mA and/or kV according to patient size, use of iterative reconstruction technique) copyright 2011 [employer] [facility] [employer]- All Rights Reserved
--- NOTE | 2020-05-04 23:01 | ER Document Report ---
ED General - General Chief Complaint: Abdominal Pain Stated Complaint: FELL PELVIC/BACK/SIDE PAIN Time Seen by Provider: 05/04/20 15:57 Primary Care Provider: JAVED DUNBAR MD [ACTIVE STAFF] - Follow up as needed NEIL THOMAS MD [Primary Care Provider] - Follow up as needed TRAVEL OUTSIDE OF THE [place] IN LAST 30 DAYS: No - HPI Notes: 84-year-old male history of prostate cancer, chronic low back pain of unknown duration, CAD presents with worsening lower back pain and pelvic pain for the past approximately 2 weeks. Patient feels pain in his lumbar back and feels it radiating to his abdomen on both sides. Says pain is worse when he wakes up in the morning and then gets better throughout the day. Has also noticed that he wakes up in the morning and his testicles are swollen but then throughout the day the swelling improves. Patient has had 2 falls over the past several weeks which have been mechanical one occurring while he was trying to lift up a stove and fell onto his back and another when he leans back in a chair and tipped it over accidentally. Patient has been ambulatory since. No acute worsening of the pain that he has had for the past several weeks but was "tired of being in pain ". Patient denies any head injury, headache, neck pain, chest pain, shortness of breath, dizziness, syncope, LOC, fever, vomiting, diarrhea, constipation, melena or bright red blood per rectum, dysuria/urgency/frequency, flank pain, change in gait, weakness or numbness, saddle anesthesia, urinary retention, bowel incontinence, anticoagulation, bleeding diatheses, drug use - Related Data Allergies/Adverse Reactions: Sulfa (Sulfonamide Antibiotics) Allergy (Mild, Verified 05/04/20 15:56) Hives milk Allergy (Verified 05/04/20 15:56) Past Medical History - General Information source: Patient, Relative, [facility] Records - Social History Smoking Status: Never Smoker Chew tobacco use (# tins/day): No Drug Abuse: None Family History: CAD, DM, Hypertension, Malignancy Patient has homicidal ideation: No - Past Medical History Cardiac Medical History: Reports: Hx Atrial Fibrillation, Hx Coronary Artery Disease - STENTS x 2- 7 YR AGO, Hx Hypercholesterolemia, Hx Hypertension - ON MEDS Denies: Hx Heart Attack Pulmonary Medical History: Reports: Hx Sleep Apnea Denies: Hx Asthma, Hx Bronchitis, Hx COPD, Hx Pneumonia, Hx Tuberculosis Neurological Medical History: Denies: Hx Cerebrovascular Accident, Hx Seizures Renal/ Medical History: Reports: Hx Benign Prostatic Hyperplasia. Denies: Hx Peritoneal Dialysis GI Medical History: Reports: Hx Gastroesophageal Reflux Disease Musculoskeletal Medical History: Reports Hx Arthritis - BACK, KNEES, NECK, WRISTS Psychiatric Medical History: Reports: Hx Post Traumatic Stress Disorder Denies: Hx Depression Past Surgical History: Reports: Hx Bowel Surgery - hernia repair, Hx Cardiac Catheterization - 2 stents, Hx Coronary Stent - x 2, Hx Herniorrhaphy - BILATERAL INGUINAL, Hx Inguinal Hernia, Other - colonosocpy 3 yeara ago. Denies: Hx Pacemaker - Immunizations Hx Diphtheria, Pertussis, Tetanus Vaccination: No Hx Pneumococcal Vaccination: 07/29/13 Review of Systems - Review of Systems Notes: REVIEW OF SYSTEMS: CONSTITUTIONAL : Denies fever, chills, or sweats. EENT: Denies recent cold/sinus symptoms, denies throat pain CARDIOVASCULAR: Denies chest pain, GIL RESPIRATORY: Denies cough, denies shortness of breath. GASTROINTESTINAL: Denies abdominal pain, nausea/vomiting. GENITOURINARY: Denies difficulty urinating, painful urination. MUSCULOSKELETAL: Denies neck pain, +back pain. SKIN: Denies rash or skin lesions. HEMATOLOGIC : Denies easy bruising or bleeding. LYMPHATIC: Denies swollen, enlarged glands. NEUROLOGICAL: Denies headache, denies change in gait. PSYCHIATRIC: Denies anxiety or stress or depression. Physical Exam - Vital signs Vitals: Temp Pulse Resp BP Pulse Ox 98.3 F 78 18 126/71 H 99 05/04/20 14:40 05/04/20 14:40 05/04/20 14:40 05/04/20 14:40 05/04/20 14:40 - Notes Notes: PHYSICAL EXAMINATION: GENERAL: Well-appearing, well-nourished elderly man sitting in chair in no acute distress. HEAD: Atraumatic, normocephalic. EYES: Pupils equal round and appropriate constriction, sclera anicteric, conjunctiva are normal. ENT: nares patent, moist mucous membranes. NECK/BACK: Normal range of motion, supple without lymphadenopathy, no cervical tenderness, patient reports pain around lumbar spine and lower thoracic spine without any focal bony tenderness or deformity LUNGS: Breath sounds clear to auscultation bilaterally and equal. No wheezes rales or rhonchi. HEART: Regular rate and rhythm without murmurs ABDOMEN: Soft, nontender, no guarding, no masses, no CVAT, normal external male genitalia without any tenderness edema or erythema EXTREMITIES: Normal range of motion, no pitting or edema. No cyanosis. Pelvis stable, no bony tenderness, gait narrow based and steady, normal straight leg raise bilaterally NEUROLOGICAL: Awake, alert, conversing appropriately, moves all extremities spontaneously, 5 out of 5 strength in all extremities, normal sensation PSYCH: Normal mood, normal affect. SKIN: Warm, Dry, normal turgor, no rashes or lesions noted. Course - Re-evaluation Re-evalutation: 05/04/20 23:01 Pain in abdomen appears to be radiating from back patient has no abdominal tenderness and no bowel symptoms. Not consistent with atypical ACS or aortic dissection Rule out fracture/pathologic fracture, unlikely UTI but will obtain urinalysis. No signs of cord compression/cauda equina/conus medullaris syndrome, patient neurologically intact, all neurologic symptoms denied and patient appears to be reliable historian, gait normal. Will obtain CT abdomen pelvis rule out traumatic injury from fall, CT of the thoracic and lumbar spine, and give pain control to reassess. Very likely discharge with PCP orthopedic and urology follow-up. CTA dissection protocol ordered prior to evaluating patient and was canceled in order to expedite patient care, but was canceled after my evaluation of patient and is not currently indicated. 05/05/20 00:44 No fractures or lytic lesions in spine, no emergent findings on imaging, patient feels improved. Patient ready for discharge with follow-up with his PCP and urologist. Patient given extensive return to ED precautions which she demonstrated understanding of. Patient given copy of all results. Given patient had no success with controlling pain with Tylenol will give few doses of tramadol for home, gave precautions. Gave extensive instructions regarding possibility of gait instability on new medications and gave instructions on slow stepwise position changes and instructed pt not to get out of bed at night to urinate and gave urinal. - Vital Signs Vital signs: Temp Pulse Resp BP Pulse Ox 98.5 F 68 16 120/60 97 05/05/20 01:36 05/05/20 01:36 05/05/20 01:36 05/05/20 01:36 05/05/20 01:36 - Laboratory Result Diagrams: 05/04/20 16:20 05/04/20 16:20 Laboratory results interpreted by me: 05/04/20 05/04/20 05/04/20 16:20 16:20 16:20 RBC 3.65 L Hgb 12.1 L Hct 35.9 L MCV 98 H Carbon Dioxide 31 H BUN 21 H Urine Protein 30 H Urine Blood SMALL H Discharge - Discharge Clinical Impression: Back pain Qualifiers: Back pain location: low back pain Chronicity: unspecified Back pain laterality: unspecified Sciatica presence: without sciatica Qualified Code(s): M54.5 - Low back pain Abdominal pain Qualifiers: Abdominal location: unspecified location Qualified Code(s): R10.9 - Unspecified abdominal pain Disposition: HOME, SELF-CARE Additional Instructions: Follow-up with your primary doctor, urologist, and orthopedic surgeon within 1 week. Return to the emergency department immediately if you have any worsening pain, vomiting, inability to pass stool or gas, bloody stool or black stool, fever, chest pain, dizziness, fainting, difficulty urinating, weakness or numbness, difficulty holding her bowel movements, or any other worsening or alarming symptoms.Low Back Pain Three out of every four people will have an episode of disabling back pain during their lifetime. Most commonly the pain is due to straining of the muscles and ligaments in the low back. Usual treatment includes: (1) Rest on a firm surface. Avoid lying on your stomach. (2) Ice pack the painful area. After a few days, gentle heat may be used intermittently to relax the area, or ice packs can be continued. (3) Medication may be needed -- muscle relaxers and antiinflammatory medicines are commonly used. (4) As the back improves, exercises are prescribed to strengthen the back and abdominal muscles. Your doctor will advise you on the proper care for your back at each stage in your recovery. You may be better in a few days -- or healing may take several weeks. If new symptoms of a "herniated disc" (radiation of pain, numbness, or tingling down the back of the leg or weakness in the leg) occur, you should be re-examined. Further testing may be necessary. Abdominal Pain There are many causes of abdominal pain. Pain can mean a serious problem requiring surgery (such as appendicitis). It can also be an innocent problem that goes away on its own (such as a viral infection). Often, time must pass to determine the cause of pain. The physician does not feel that hospitalization is necessary, at present. Things may change within the next 24 hours. Call the doctor or come back for re- examination if any problems occur, such as: (1) Pain that becomes more severe, steady, or becomes concentrated in one specific area. Also, pain that is more severe with movement or coughing. (2) Vomiting that persists or becomes more frequent. (3) Blood in the vomitus, urine, or bowel movements. Blood in the stool may have a tarry or black appearance. (4) Shaking chills or fever greater than 100 degrees F. (5) The abdomen becomes more distended or swollen. (6) Bowel movements cease. (7) Failure to improve as expected. Prescriptions: Tramadol HCl [Ultram 50 mg Tablet] 50 mg PO Q6HP PRN #6 tab PRN Reason: Referrals: NEIL THOMAS MD [Primary Care Provider] - Follow up as needed JAVED DUNBAR MD [ACTIVE STAFF] - Follow up as needed
[2020-05-05 01:36] VITALS: BP 120/60
== END 2020-05-05 01:36 | disposition home or self-care (01) ==
LOC: ER 13:58
DX: M54.5 Low back pain (principal); R10.2 Pelvic and perineal pain; R10.30 Lower abdominal pain, unspecified; I10 Essential (primary) hypertension; E78.00 Pure hypercholesterolemia, unspecified; I48.91 Unspecified atrial fibrillation; Z85.46 Personal history of malignant neoplasm of prostate; Z88.2 Allergy status to sulfonamides
CPT/HCPCS: 99284; 36415; 83690; 85025; 80053; 81001; 72128; 74177; A9270 ×2; J3490

== ENCOUNTER → 2020-07-19 | Outpatient (CLI) | payer MEDICARE, OTHER ==
[2020-07-19 09:56] VITALS: BP 138/65
--- NOTE | 2020-07-19 09:56 | ER [facility] ASSESSMENT REPORT ---
Intake - In the Last 14 days Have you traveled outside [place]?: No Have you been in close contact with someone CONFIRMED: No Worked in Healthcare?: No - Symptoms Subjective Fever([place] feverish): No Chills: No Muscule Aches: Yes Runny Nose: No Sore Throat: No Cough (New or worsening chronic cough): No Shortness of breath: Yes Nausea or Vomiting: No Headache: No Abdominal Pain: No Diarrhea(3 or more loose stools in last 24 hours): No - Do you have any of the following Chronic lung disease: Asthma or emphysema or COPD: No Cystic Fibrosis: No Diabetes: No High Blood Pressure: Yes Cardiovascular Disease: Yes Chronic Kidney Disease: No Chronic Liver Disease: No Chronic blood disorder like Sickle Cell Disease: No Weak immune system due to disease or medication: No Neurologic condition that limits movement: No Developmental delay - Moderate to Severe: No Recent (within past 2 weeks) or current : No Morbid Obesity (>100 pounds over ideal weight): No - Objective Temperature: 97.8 F Pulse Rate: 72 Respiratory Rate: 16 Blood Pressure: 138/65 O2 Sat by Pulse Oximetry: 98 Objective: Given above, testing performed: If Testing Performed: Test Specimen Type Sent to General - General Information source: Patient Notes: Patient presents to the [facility] for screening for the coronavirus. Patient reports shortness of breath and body aches for the past 2 weeks. - Related Data Allergies/Adverse Reactions: Sulfa (Sulfonamide Antibiotics) Allergy (Mild, Verified 05/04/20 15:56) Hives milk Allergy (Verified 05/04/20 15:56) Past Medical History - General Information source: Patient - Social History Family History: CAD, DM, Hypertension, Malignancy - Past Medical History Cardiac Medical History: Reports: Hx Atrial Fibrillation, Hx Coronary Artery Disease - STENTS x 2- 7 YR AGO, Hx Hypercholesterolemia, Hx Hypertension - ON MEDS Denies: Hx Heart Attack Pulmonary Medical History: Reports: Hx Sleep Apnea Denies: Hx Asthma, Hx Bronchitis, Hx COPD, Hx Pneumonia, Hx Tuberculosis Neurological Medical History: Denies: Hx Cerebrovascular Accident, Hx Seizures Renal/ Medical History: Reports: Hx Benign Prostatic Hyperplasia. Denies: Hx Peritoneal Dialysis GI Medical History: Reports: Hx Gastroesophageal Reflux Disease Musculoskeletal Medical History: Reports Hx Arthritis - BACK, KNEES, NECK, WRISTS Psychiatric Medical History: Reports: Hx Post Traumatic Stress Disorder Denies: Hx Depression Past Surgical History: Reports: Hx Bowel Surgery - hernia repair, Hx Cardiac Catheterization - 2 stents, Hx Coronary Stent - x 2, Hx Herniorrhaphy - BILA TERAL INGUINAL, Hx Inguinal Hernia, Other - colonosocpy 3 yeara ago. Denies: Hx Pacemaker Physical Exam - Notes Notes: The patient was evaluated during the global Covid 19 pandemic, and that diagnosis was suspected/considered upon their initial presentation. Their evaluation, treatment and testing was consistent with current guidelines for patients who present with complaints or symptoms that may be related to Covid 19. Full physical exam could not be performed due to covid 19 isolation protocols. Constitutional: Nontoxic appearance, no acute distress Eyes: Nonicteric, extraocular movements intact, sclera clear Cardiovascular: Heart rate and rhythm regular, no JVD Respiratory: Breath sounds clear bilaterally, nonlabored breathing, no use of accessory muscles, no tachypnea Gastrointestinal: Abdomen not distended Muculoskeletal: Moves all extremities well Skin: Normal color Neuro: Awake alert oriented, normal speech Psych: Normal mood and affect Diagnostic Results Laboratory Results: Patient presents with upper respiratory symptoms worrisome for possible Covid 19. Patient does not have emergency worrying symptoms such as difficulty breathing, shortness of breath, chest pain, pressure, confusion or cyanosis. Patient appears suitable for discharge as vital signs are stable and patient is nontoxic in appearance. Good return precautions have been discussed with patient, patient verbalized understanding and is agreeable with discharge plan of care at this time. Patient Education/Counseling Counseling/Education: Patient was provided with discharge information including: As a person under investigation for Covid 19, the [place] department of Health and Human Services, division of public health advises you to adhere to the following guidance until your test results are reported to you. If your test result is positive, you will receive additional information from your provider and your local health department at that time. Remain at home until you are cleared by the health provider or public health authorities. Keep a log of visitors to your home, notify any visitors to your home of your isolation status. If you plan to move to a new address or leave the county, notify the local health department in your County. Call your doctor or seek care if you have an urgent medical need. Before seeking medical care, call ahead to get instructions from the provider before arriving at the medical office clinic or hospital. Notify them that you are being tested for the virus that causes Covid 19 so that arrangements can be made, as necessary, to prevent transmission to others in the healthcare setting. Next, notify the local health department in your county. If a medical emergency arises and you need to call 911, inform the first responders that you are being tested for the virus that causes Covid 19. Next, notify the local health department in your county. [facility] Discharge - Discharge Clinical Impression: Encounter for screening laboratory testing for COVID-19 virus
[2020-07-19 11:53] LABS: A TYPE INFLUENZA AG NEGATIVE (NEGATIVE); B INFLUENZA AG NEGATIVE (NEGATIVE)
== END ==
LOC: RDC 09:25
PROVIDERS: ATTEND Nurse Practitioner Family
DX: Z20.828 Contact with and (suspected) exposure to other viral communicable diseases (principal); M79.10 Myalgia, unspecified site; R06.02 Shortness of breath; I10 Essential (primary) hypertension; E78.00 Pure hypercholesterolemia, unspecified; I25.10 Atherosclerotic heart disease of native coronary artery without angina pectoris; K21.9 Gastro-esophageal reflux disease without esophagitis; Z88.1 Allergy status to other antibiotic agents; Z91.011 Allergy to milk products
CPT/HCPCS: 87804; 99201; U0003; G0463; C9803; 87635; 99211

== ENCOUNTER 2020-09-26 18:10 | Emergency (ER) | payer MEDICARE, OTHER ==
--- NOTE | 2020-09-26 19:11 | ER Document Report ---
ED Medical Screen (RME) - General Chief Complaint: Constipation Stated Complaint: ABDOMINAL PAIN Time Seen by Provider: 09/26/20 19:07 Primary Care Provider: NEIL THOMAS MD [Primary Care Provider] - Follow up as needed Notes: Patient presents complaining of constipation for the past 4 days. Patient reports lower abdominal pain and rectal discomfort. Patient has a history of hypertension, diabetes, prostate cancer and dementia. I have greeted and performed a rapid initial assessment of this patient. A comprehensive ED assessment and evaluation of the patient, analysis of test results and completion of the medical decision making process will be conducted by additional ED providers. TRAVEL OUTSIDE OF THE [place] IN LAST 30 DAYS: No - Related Data Allergies/Adverse Reactions: Sulfa (Sulfonamide Antibiotics) Allergy (Mild, Verified 09/26/20 19:04) Hives milk Allergy (Verified 09/26/20 19:04) Past Medical History - Past Medical History Cardiac Medical History: Reports: Hx Atrial Fibrillation, Hx Coronary Artery Disease - STENTS x 2- 7 YR AGO, Hx Hypercholesterolemia, Hx Hypertension - ON MEDS Denies: Hx Heart Attack Pulmonary Medical History: Reports: Hx Sleep Apnea Denies: Hx Asthma, Hx Bronchitis, Hx COPD, Hx Pneumonia, Hx Tuberculosis Neurological Medical History: Denies: Hx Cerebrovascular Accident, Hx Seizures Renal/ Medical History: Reports: Hx Benign Prostatic Hyperplasia. Denies: Hx Peritoneal Dialysis GI Medical History: Reports: Hx Gastroesophageal Reflux Disease Musculoskeltal Medical History: Reports Hx Arthritis - BACK, KNEES, NECK, WRISTS Psychiatric Medical History: Reports: Hx Post Traumatic Stress Disorder Denies: Hx Depression Past Surgical History: Reports: Hx Bowel Surgery - hernia repair, Hx Cardiac Catheterization - 2 stents, Hx Coronary Stent - x 2, Hx Herniorrhaphy - BILATERAL INGUINAL, Hx Inguinal Hernia, Other - colonosocpy 3 yeara ago. Denies: Hx Pacemaker - Immunizations Hx Diphtheria, Pertussis, Tetanus Vaccination: No Physical Exam - Vital signs Vitals: Temp Pulse Resp BP Pulse Ox 98.4 F 74 16 142/63 H 100 09/26/20 18:25 09/26/20 18:25 09/26/20 18:25 09/26/20 18:25 09/26/20 18:25 - Abdominal Tenderness: Tender - generalized Course - Vital Signs Vital signs: Temp Pulse Resp BP Pulse Ox 98.4 F 74 16 142/63 H 100 09/26/20 18:25 09/26/20 18:25 09/26/20 18:25 09/26/20 18:25 09/26/20 18:25 Doctor's Discharge - Discharge Referrals: NEIL THOMAS MD [Primary Care Provider] - Follow up as needed
--- NOTE | 2020-09-26 19:50 | RADIOLOGY REPORT (SQ) ---
EXAM DESCRIPTION: KUB/ABDOMEN (SINGLE VIEW) IMAGES COMPLETED DATE/TIME: 09/26/2020 7:42 pm REASON FOR STUDY: constipation COMPARISON: 2012 NUMBER OF VIEWS: One view. TECHNIQUE: Supine radiographic image of the abdomen acquired. LIMITATIONS: None. FINDINGS: BOWEL GAS PATTERN: Nonobstructive gas pattern. There is some retained stool in the right: Predominantly. CALCIFICATIONS: No suspicious calcifications. SOFT TISSUES: No gross mass or suggestion of organomegaly. HARDWARE: None in the abdomen. BONES: Skin brennen. Surgical clips. OTHER: No other significant finding. IMPRESSION: There is some stool in the right colon. No other significant finding. TECHNICAL DOCUMENTATION: JOB ID: [id number] 2010 [employer]- All Rights Reserved Reading location - IP/workstation name: [email or web address]
[2020-09-26 21:23] VITALS: BP 166/62
== END 2020-09-26 23:32 | disposition left against medical advice (07) ==
LOC: ER 18:10
DX: K59.00 Constipation, unspecified (principal); R10.30 Lower abdominal pain, unspecified; I10 Essential (primary) hypertension; I25.10 Atherosclerotic heart disease of native coronary artery without angina pectoris; Z95.5 Presence of coronary angioplasty implant and graft; Z88.2 Allergy status to sulfonamides; Z91.011 Allergy to milk products
CPT/HCPCS: 74018; 99281